=== PATIENT | male | born 1960 | race Caucasian/White ===

== ENCOUNTER 2023-09-16 10:52 | Emergency (ER) | payer MEDICARE, SELFPAY ==
[2023-09-16 10:53] VITALS: BP 141/111; PULSE 114; RESP 18; TEMP 36.9; O2SAT 98; BMI 26.4
[2023-09-16 11:20] VITALS: BP 136/92; PULSE 108; O2SAT 95
[2023-09-16 11:30] VITALS: BP 151/95; PULSE 109; O2SAT 95
--- NOTE | 2023-09-16 11:37 | HMH.EDGENADL ---
Discharge Plan Disposition Patient Disposition: Home, Self-Care Prescriptions Prescriptions: New levofloxacin 750 mg tablet 750 mg PO DAILY 5 Days Qty: 5 0RF clotrimazole 10 mg karen 10 mg mucous membrane 5XDAY 14 Days Qty: 70 0RF Referrals Follow up/Referrals: Rowena Bourne [Primary Care Provider] - See instructions Activity Restrictions/Add. Instructions Additional Instructions/Restrictions: WillAt this time is felt you are safe to be discharged home. If new or worsening symptoms please not hesitate to return the emergency department. Please take your medications as prescribed and follow-up with your family doctor within the next few days for continued evaluation of your thrush (candidiasis), pneumonia, tongue ulcer, and elevated liver markers. Clinical Impressions Clinical Impression: Pneumonia, Candidiasis of mouth, Tongue ulcer, Transaminitis Discharge ED Provider: Guzman Strickland General Adult HPI General Chief complaint: Dental/Oral Stated complaint: post seizure breakout in mouth, can't eat/drink Time Seen by Provider: 09/16/23 11:25 Mode of Arrival: Wheelchair Source of Information: Patient and Spouse Limitations: No Limitations Description of Symptoms (Recalled from ER Triage Doc. by RN): Patient states that he has had blisters and a swollen tongue for approx 2 weeks since he had his last seizure. Per the patient has not had his seizure medication for approx 1 week due to the blisters in his mouth. History of Present Illness HPI narrative: Patient is a 62-year-old male with past medical history of seizure disorder on Dilantin, Keppra, diazepam who presents emergency department for evaluation of sores in his mouth. Approximately 2 weeks ago patient had generalized tonic-clonic seizure (has baseline is intermittent however he has had seizures as frequently as every 2 weeks). Seizure phenotype is consistent with baseline, he bit his tongue in the process and presented to where ultimately patient left prior to completion of workup. Since then patient has had a sore on the left side of his tongue, progressive pain and a white discoloration of his tongue causing him to present here for continued evaluation due to pain associated with p.o. intake. Patient does have a slight associated cough. No chest pain, abdominal pain, other acute complaints at this time. Related Data Previous Rx's Medication Instructions Recorded clotrimazole 10 mg karen 10 mg mucous membrane 5XDAY 14 09/16/23 days #70 tabs levofloxacin 750 mg tablet 750 mg PO DAILY 5 days #5 tabs 09/16/23 Allergies Allergy/AdvReac Type Severity Reaction Status Date / Time phenobarbital Allergy Verified 09/16/23 11:06 [facility] Disclaimer: The information contained in this section may have been updated after the patient was seen, as this information can be updated by other users. Social History Smoking Status: Former smoker alcohol intake: never current occupational status: other Travel in the last 8 weeks: None ROS Obtained: Yes Systems reviewed as appropriate & no additional complaints except as documented Physical Exam General General appearance: alert and in no apparent distress Head Head exam: atraumatic and normocephalic Eye Eye exam: Present PERRL and EOMI ENT ENT exam: Present mucous membranes moist and other (Scrapable white plaque adherent to the dorsal aspect of the tongue, ulcerative lesion left lateral tongue that is hemostatic. No gingival or buccal mucosal involvement no posterior oropharynx involvement) Neck Neck exam: Present normal inspection Chest Chest inspection: Present normal inspection and symmetric chest wall rise Respiratory Respiratory exam: Present normal lung sounds bilaterally; Absent respiratory distress Cardiovascular Cardiovascular exam: Present regular rate and normal rhythm Abdominal Exam Abdominal exam: Present soft; Absent tenderness Extremities Exam Extremitie
--- NOTE | 2023-09-16 11:39 | XR_ITS ---
PROCEDURE INFORMATION: Exam: XR Chest Exam date and time: 09/16/2023 11:48 AM Age: 62 years old Clinical indication: Cough TECHNIQUE: Imaging protocol: Radiologic exam of the chest. Views: 1 view. Total images: 1 COMPARISON: No relevant prior studies available. FINDINGS: Lungs: Atelectatic and/or early infiltrative changes noted within the left lower lobe. Bilateral hyperinflation is present. Pleural spaces: Unremarkable. No pleural effusion. No pneumothorax. Heart/Mediastinum: Unremarkable. No cardiomegaly. Vasculature: Mild atherosclerotic disease. Bones/joints: The thoracic spine demonstrates mild degenerative changes at multiple levels. IMPRESSION: 1. Atelectatic and/or early infiltrative changes noted within the left lower lobe. 2. Bilateral hyperinflation is present.
[2023-09-16 12:01] LABS: Basophils # 0.1 K/mm3 (0-0.2); Basophils % 1.1 % (0.1-2.0); Eosinophils # 0.1 K/mm3 (0.0-0.4); Eosinophils % 0.7 % (0.1-12.0); Hematocrit 43.7 % (42.0-52.0); Hemoglobin 15.2 g/dL (14.1-18.0); Lymphocytes # 5.7 K/mm3 (0.7-4.5); Lymphocytes % 68.8 % (10-50); Mean Corpuscular HGB Conc 34.7 g/dL (31.8-35.4); Mean Corpuscular Hemoglobin 31.7 pg (27.0-31.2); Mean Corpuscular Volume 91.2 fl (80-94); Mean Platelet Volume 8.5 fl (7.4-10.4); Monocytes # 0.8 K/mm3 (0.1-1.0); Neutrophils # 1.6 K/mm3 (1.8-7.8); Neutrophils % 19.5 % (37.0-80.0); Platelet Count 308 K/mm3 (142-424); Red Blood Count 4.79 M/mm3 (4.60-6.20); Red Cell Distribution Width 15.6 % (11.5-17.5); White Blood Count 8.3 K/mm3 (4.8-10.8)
[2023-09-16 12:04] LABS: MANUAL DIFFERENTIAL MANUAL DIFFERENTIAL (MANUAL DIFF)
[2023-09-16 12:05] LABS: Chloride 102 mmol/L (98-107); Potassium 4.7 mmoL/L (3.5-5.1); Sodium 138 mmol/L (136-145)
[2023-09-16 12:08] LABS: Alanine Aminotransferase 136 U/L (12-78); Albumin Level 4.2 g/dl (3.5-5.0); Albumin/Globulin Ratio 0.9 (1.1-1.8); Alkaline Phosphatase 159 U/L (38-126); Anion Gap 12.7 mEq/L (5-15); Aspartate Amino Transferase 142 U/L (17-59); Blood Urea Nitrogen 17 mg/dl (9-20); Carbon Dioxide 28 mmol/L (22.0-30.0); Creatinine Clearance Estimated 98 mL/min (50-200); Estimated Glomerular Filt Rate 137 ml/min (>60); GFR (African American) 165 ML/MIN (>60); Globulin 4.6 g/dL (1.3-3.2); Total Protein,Serum 8.8 g/dl (6.3-8.2)
[2023-09-16 12:09] LABS: Calcium 8.7 mg/dl (8.4-10.2); Glucose 104 mg/dl (74-100)
[2023-09-16 12:39] LABS: Lymphocytes % 69 % (10-50); Monocytes % 10 % (2-9); Neutrophils % 21 % (42-76); Platelet Estimate Normal; RBC Morphology Normal; Total Cells Counted 100
[2023-09-16 13:10] VITALS: BP 151/95; PULSE 93; RESP 18; TEMP 36.7; O2SAT 95
== END 2023-09-16 13:11 | disposition home or self-care (01) ==
PROVIDERS: Emergency Provider Emergency Medicine; PCP Family Medicine
DX: J18.9 Pneumonia, unspecified organism (principal); R00.0 Tachycardia, unspecified; B37.0 Candidal stomatitis; K14.0 Glossitis; R74.01 Elevation of levels of liver transaminase levels; R05.9 Cough, unspecified; G40.909 Epilepsy, unspecified, not intractable, without status epilepticus; Z87.891 Personal history of nicotine dependence
CPT/HCPCS: 71045; 80053; 85007; 85025

== ENCOUNTER 2023-09-16 22:45 | Inpatient (IN) | payer MEDICARE, MEDICAID, SELFPAY ==
[2023-09-16 22:45] VITALS: RESP 18; TEMP 36.4; O2SAT 93; BMI 25.0
[2023-09-16 22:57] VITALS: BP 113/82; PULSE 70
--- NOTE | 2023-09-16 23:01 | PC.NURSE ---
Seizure pads have been placed for patient safety
--- NOTE | 2023-09-16 23:16 | HMH.EDGENADL ---
Discharge Plan Disposition Patient Disposition: Admitted Chief Complaint: Seizure Prescriptions Prescriptions: No Action levofloxacin 750 mg tablet 750 mg PO DAILY 5 Days Qty: 5 0RF clotrimazole 10 mg karen 10 mg mucous membrane 5XDAY 14 Days Qty: 70 0RF clotrimazole 10 mg Karen 10 mg MUCOUS MEMBRANE TID levetiracetam 500 mg tablet 500 mg PO AM Patient Comments: TAKE 1 TABLET BY MOUTH IN THE MORNING AND 2 TABLETS IN THE EVENING diazepam 10 mg tablet 10 mg PO BID PRN (Reason: Seizures) Patient Comments: TAKE 1 TABLET BY MOUTH TWICE DAILY NEEDED FOR ACUTE SEIZURES levetiracetam 500 mg tablet 1,000 mg PO PM phenytoin sodium extended 100 mg capsule 300 mg PO PM Patient Comments: TAKE 2 CAPSULES BY MOUTH IN THE MORNING AND 3 CAPSULES IN THE EVENING phenytoin sodium extended 100 mg capsule 200 mg PO AM Patient Comments: TAKE 2 CAPSULES BY MOUTH IN THE MORNING AND 3 CAPSULES IN THE EVENING Clinical Impressions Clinical Impression: Jo Ann esophagitis, Breakthrough seizure, Left thyroid nodule, Acute upper gastrointestinal bleeding, Elevated liver enzymes Neutropenia Qualifiers: Neutropenia type: unspecified Qualified Code(s): D70.9 - Neutropenia, unspecified Discharge ED Provider: Patricio Egan General Adult HPI General Chief complaint: Seizure Stated complaint: seizure Time Seen by Provider: 09/16/23 23:00 Mode of Arrival: EMS Source of Information: Patient Limitations: No Limitations Description of Symptoms (Recalled from ER Triage Doc. by RN): Per EMS: patient was seizing at home unknown on how long seizure lasted. Arrival to ER patient remains posticial. Able to answer some questions appropriatly but unsure of todays date, or current location. From prior visit earlier this date patient has not been taking prescribed medications due to thrush. History of Present Illness HPI narrative: 62-year-old male, history of idiopathic generalized seizure disorder since childhood, prescribed Keppra, phenytoin, diazepam for seizure disorder by PCP presents with breakthrough seizure. Patient's last seizure was approximately 2 weeks ago, he briefly had Ramu's paralysis at that time. His seizures are usually fairly well controlled. Patient has had worsening mouth and throat pain for the last 2 weeks or so. Patient has not been able to take his Keppra or phenytoin for approximately last 2 weeks due to throat pain, he has also been having difficulty tolerating food. He has been able to take the diazepam because they are smaller. The patient had a generalized tonic-clonic seizure in bed shortly prior to arrival and was postictal immediately afterwards. He sustained no trauma during the seizure. It was characteristic of patient's normal seizure pattern per family at bedside. Patient has had no fever at home, but has had a productive cough recently. He was seen here in the ER earlier today and had blood work. He was noted to be mildly neutropenic and have elevated LFTs. During that visit earlier today, he was diagnosed with oropharyngeal candidiasis and pneumonia and was prescribed clotrimazole and levofloxacin. During current ED stay, patient had very large volume dark brown emesis that was Hemoccult positive. No history of GI bleeding in the past. Related Data Home Medications Medication Instructions Recorded Confirmed clotrimazole 10 mg karen 10 mg mucous membrane TID 09/16/23 09/16/23 diazepam 10 mg tablet 10 mg PO BID PRN Seizures 09/16/23 09/16/23 levetiracetam 500 mg tablet 1,000 mg PO PM 09/16/23 09/16/23 levetiracetam 500 mg tablet 500 mg PO AM 09/16/23 09/16/23 phenytoin sodium extended 100 mg 200 mg PO AM 09/16/23 09/16/23 capsule phenytoin sodium extended 100 mg 300 mg PO PM 09/16/23 09/16/23 capsule Previous Rx's Medication Instructions Recorded clotrimazole 10 mg karen 10 mg mucous membrane 5XDAY 14 09/16/23 days #70 tab
[2023-09-17] VITALS (17 sets, daily range): BP systolic 103–148; BP diastolic 53–86; PULSE 80–112; RESP 14–20; TEMP 36.6–37.5; O2SAT 91–96; BMI 25.9
--- NOTE | 2023-09-17 00:05 | PC.NURSE ---
Keppra infusion complete. Patient tolerated well with no adverse reactions. Patient is more alert and able to answer questions appropriately.
--- NOTE | 2023-09-17 00:18 | CT_ITS ---
PROCEDURE INFORMATION: Exam: CTA Abdomen and Pelvis With Contrast Exam date and time: 09/17/2023 12:59 AM Age: 62 years old Clinical indication: Abdominal pain; Acute; Additional info: Gi bleed TECHNIQUE: Imaging protocol: Computed tomographic angiography of the abdomen and pelvis with contrast. Exam focused on the arteries. 3D rendering (Not supervised by radiologist): MIP and/or 3D reconstructed images were created by the technologist. Radiation optimization: All CT scans at this facility use at least one of these dose optimization techniques: automated exposure control; mA and/or kV adjustment per patient size (includes targeted exams where dose is matched to clinical indication); or iterative reconstruction. Contrast material: ISOVUE; Contrast volume: 100 ml; Contrast route: INTRAVENOUS (IV); REPORTING DATA: Count of CT and Cardiac NM exams in prior 12 months: This patient has received 0 known CTs and 0 known cardiac nuclear medicine studies in the 12 months prior to the current study. COMPARISON: CT ANGIO CHEST 09/17/2023 12:59 AM FINDINGS: Diaphragm: A small hiatal hernia is present. Aorta: No aortic aneurysm. No aortic dissection. Celiac trunk and mesenteric arteries: No occlusion or significant stenosis. Renal arteries: No occlusion or significant stenosis. Right iliac arteries: No occlusion or significant stenosis. Left iliac arteries: No occlusion or significant stenosis. Liver: No mass. Gallbladder and bile ducts: Unremarkable. No calcified stones. No ductal dilation. Pancreas: Unremarkable. No mass. No ductal dilation. Spleen: Unremarkable. No splenomegaly. Adrenal glands: 16 mm right adrenal myelolipoma. There is an associated coarse calcification within the adrenal gland. Normal left adrenal gland. Kidneys and ureters: Unremarkable. No solid mass. No hydronephrosis. Stomach and bowel: Unremarkable. No obstruction. No mucosal thickening. Appendix: No evidence of appendicitis. Intraperitoneal space: There is a diffuse inflammatory stranding throughout the central mesentery. There are no enlarged mesenteric lymph nodes. These findings are nonspecific. This marcelo mesentery can be an early manifestation of mesenteric neoplasm, however, and a follow up examination is recommended as clinically warranted. Lymph nodes: Several enlarged upper abdominal lymph nodes are noted. The largest in the portacaval region measuring 1.3 x 2.4 cm on image 347 series 2. Urinary bladder: Unremarkable. No mass. Reproductive: Unremarkable as visualized. Bones/joints: No acute fracture. Soft tissues: Unremarkable. IMPRESSION: 1. Unremarkable abdominal and pelvic CTA. 2. Mildly prominent upper abdominal lymph nodes of uncertain significance. Follow-up is recommended. 3. Diffuse inflammatory stranding throughout the central mesentery. This marcelo mesentery can be an early manifestation of mesenteric neoplasm, however, and a follow up examination is recommended as clinically warranted. 4. Right adrenal myelolipoma.
--- NOTE | 2023-09-17 00:23 | CT_ITS ---
PROCEDURE INFORMATION: Exam: CTA Chest With Contrast Exam date and time: 09/17/2023 12:59 AM Age: 62 years old Clinical indication: Other: Hematemesis TECHNIQUE: Imaging protocol: Computed tomographic angiography of the chest with contrast. Exam focused on the arteries. 3D rendering (Not supervised by radiologist): MIP and/or 3D reconstructed images were created by the technologist. Radiation optimization: All CT scans at this facility use at least one of these dose optimization techniques: automated exposure control; mA and/or kV adjustment per patient size (includes targeted exams where dose is matched to clinical indication); or iterative reconstruction. Contrast material: ISOVUE; Contrast volume: 100 ml; Contrast route: INTRAVENOUS (IV); REPORTING DATA: Count of CT and Cardiac NM exams in prior 12 months: This patient has received 0 known CTs and 0 known cardiac nuclear medicine studies in the 12 months prior to the current study. COMPARISON: CR XR CHEST PORTABLE 09/16/2023 11:48 AM FINDINGS: Pulmonary arteries: Normal. No pulmonary emboli. Aorta: Unremarkable. No aortic aneurysm. No aortic dissection. Thyroid: Large heterogeneous left thyroid lobe nodule measuring 3.5 x 3.1 x 5.2 cm. Lungs: 14 mm focus of airspace disease right lower lobe image 64 series 5. Bandlike densities within the lingula and anterior segment right upper lobe either representing atelectasis or scarring. Several small calcified granulomas are noted at the posterior left lung base. Pleural spaces: Unremarkable. No pneumothorax. No pleural effusion. Heart: Unremarkable. No cardiomegaly. No pericardial effusion. Mediastinal space: Fluid-filled thoracic esophagus with diffuse mild circumferential wall thickening of the esophageal. The findings likely represent sequela of reflux disease or dysmotility along with esophagitis. Lymph nodes: There are few small less than 10 mm right pericardial lymph nodes. Diaphragm: A small hiatal hernia is present. Bones/joints: Unremarkable. No acute fracture. Soft tissues: Unremarkable. IMPRESSION: 1. No pulmonary embolus. No acute aortic findings. 2. Dilated fluid-filled thoracic esophagus with circumferential wall thickening. The findings likely represent sequela of reflux disease or dysmotility along with esophagitis. 3. Large heterogeneous left thyroid lobe nodule measuring up to 5.2 cm. Further evaluation with thyroid ultrasound is recommended. 4. Left upper lobe atelectasis versus scarring. 5. Other nonurgent findings as detailed. COMMENTS: Consistent with the [employer]'s Incidental Findings Committee white paper (J Am Mariaelena Radiol 2015): In patients aged 35 years and older with an incidental thyroid nodule equal to or greater than 1.[address], MRI or extrathyroidal US, further evaluation with dedicated thyroid US is recommended for patients with normal life expectancy and without comorbidities. For smaller nodules without suspicious features, no further evaluation or follow up is recommended.
--- NOTE | 2023-09-17 00:24 | PC.NURSE ---
Patient started vomiting dark brown/black emesis. Large amount. Patient states he just started feeling nauseas and started vomiting. Patient denies having any of these symptoms at home. Dr. Egan was at bedside. New orders received for scans. Patient has been cleaned up and repositioned in bed.
[2023-09-17 00:34] LABS: Basophils # 0.1 K/mm3 (0-0.2); Chloride 101 mmol/L (98-107); Eosinophils # 0.1 K/mm3 (0.0-0.4); Eosinophils % 0.8 % (0.1-12.0); Hemoglobin 14.4 g/dL (14.1-18.0); Lymphocytes # 6.8 K/mm3 (0.7-4.5); Lymphocytes % 70.5 % (10-50); Mean Corpuscular HGB Conc 36.1 g/dL (31.8-35.4); Mean Corpuscular Hemoglobin 32.1 pg (27.0-31.2); Mean Corpuscular Volume 89.1 fl (80-94); Mean Platelet Volume 9.1 fl (7.4-10.4); Monocytes # 0.8 K/mm3 (0.1-1.0); Monocytes % 8.5 % (1.7-9.3); Neutrophils # 1.8 K/mm3 (1.8-7.8); Neutrophils % 19.1 % (37.0-80.0); Platelet Count 325 K/mm3 (142-424); Potassium 3.6 mmoL/L (3.5-5.1); Red Blood Count 4.49 M/mm3 (4.60-6.20); Red Cell Distribution Width 15.8 % (11.5-17.5); Sodium 138 mmol/L (136-145); White Blood Count 9.6 K/mm3 (4.8-10.8)
[2023-09-17 00:36] LABS: Blood Urea Nitrogen 18 mg/dl (9-20); Creatinine Clearance Estimated 93 mL/min (50-200); Estimated Glomerular Filt Rate 137 ml/min (>60); GFR (African American) 165 ML/MIN (>60)
[2023-09-17 00:37] LABS: Alanine Aminotransferase 138 U/L (12-78); Albumin Level 3.9 g/dl (3.5-5.0); Albumin/Globulin Ratio 0.9 (1.1-1.8); Alkaline Phosphatase 162 U/L (38-126); Anion Gap 12.6 mEq/L (5-15); Aspartate Amino Transferase 116 U/L (17-59); Bilirubin,Total 0.6 mg/dl (0.2-1.3); Calcium 8.9 mg/dl (8.4-10.2); Carbon Dioxide 28 mmol/L (22.0-30.0); Globulin 4.2 g/dL (1.3-3.2); Glucose 172 mg/dl (74-100); Magnesium 2.2 mg/dl (1.6-2.3); Total Protein,Serum 8.1 g/dl (6.3-8.2)
[2023-09-17 00:38] LABS: MANUAL DIFFERENTIAL MANUAL DIFFERENTIAL (MANUAL DIFF)
[2023-09-17 00:39] LABS: Activated Partial Thrombo Time 27.1 seconds (22.8-30.6)
[2023-09-17 00:42] LABS: Lipase 127 U/L (23-300)
[2023-09-17 00:46] LABS: INR 1.11 (0.9-1.1); Prothrombin Time 11.9 seconds (10.1-12.5)
[2023-09-17 00:52] LABS: VBG Base Excess 0.3 mmol/L (-2.4-2.3); VBG HCO3 25.2 mmol/L (23-30); VBG Oxygen Saturation 94.9 % (50-70); VBG PCO2 41.9 mmol/L (35-51); VBG PO2 77.9 mmol/L (28-40); VBG Total CO2 26.5 mmol/L (23-27)
[2023-09-17 01:02] LABS: Eosinophils % 4 % (0-3); Lymphocytes % 70 % (10-50); Monocytes % 9 % (2-9); Neutrophils % 17 % (42-76); Platelet Estimate Normal; RBC Morphology Normal; Total Cells Counted 100
[2023-09-17 01:05] LABS: Lactic Acid 1.4 mmol/L (0.7-2.1)
[2023-09-17 01:13] LABS: Occult Blood,Gastric Fluid Positive (Negative)
--- NOTE | 2023-09-17 01:31 | XR_ITS ---
PROCEDURE INFORMATION: Exam: XR Chest Exam date and time: 09/17/2023 1:38 AM Age: 62 years old Clinical indication: Device placement; Ng tube; Additional info: Ng placement TECHNIQUE: Imaging protocol: Radiologic exam of the chest. Views: 1 view. COMPARISON: CT ANGIO CHEST 09/17/2023 12:59 AM FINDINGS: Tubes, catheters and devices: The nasogastric tube is doubled back on itself and does not go beyond the GE junction. The tip projects at the level of the aortic arch. Lungs: Scarring versus atelectasis within the left mid lung zone. Pleural spaces: Unremarkable. No pleural effusion. No pneumothorax. Heart/Mediastinum: Unremarkable. No cardiomegaly. Vasculature: Unremarkable. Bones/joints: Unremarkable. IMPRESSION: Nasogastric tube doubles back on itself with the tip projecting at the level of the aortic arch. This should be repositioned.
--- NOTE | 2023-09-17 02:04 | XR_ITS ---
FINAL REPORT CLINICAL HISTORY: replace ng tube placement COMPARISON: None FINDINGS: Apices were not included on this chest x-ray. NG tube is present with the tip in the gastric antrum. The heart size is normal. The mediastinum is normal. There is scarring in the left perihilar region. The lungs are underinflated. There are no pleural effusions. There is no pneumothorax. There is no osseous abnormality. IMPRESSION: NG tube present with tip in the gastric antrum. Scarring in the left perihilar region. Reviewed, Interpreted and Dictated by Mo Mendez MD Transcribed by Zee Mckeon Authenticated and [facility]
--- NOTE | 2023-09-17 02:07 | PC.NURSE ---
LUIGI Anne placed NG to left nare. Waiting on confirmation from XRAY.
--- NOTE | 2023-09-17 02:38 | PC.NURSE ---
Spoke with Scotty [facility], they will return call as soon as they receive images that are being power shared
[2023-09-17 02:42] LABS: T4 (Thyroxine) 8.2 ug/dl (5.53-11.0)
--- NOTE | 2023-09-17 02:59 | PC.NURSE ---
on phone with Fran
--- NOTE | 2023-09-17 03:08 | PC.NURSE ---
pt placed on waiting list @ [facility]
--- NOTE | 2023-09-17 03:12 | PC.NURSE ---
Spoke to [facility] there is a wait list, ED doctor chose not to add pt. to wait list at this facility
--- NOTE | 2023-09-17 03:15 | PC.NURSE ---
xray conformation of correct placement obtained. Patient has had 650ml of dark brown gastric contents removed via NG tube. Patient states I feel better already.
--- NOTE | 2023-09-17 03:16 | PC.NURSE ---
Spoke to [facility] transfer center, No beds available at this time
--- NOTE | 2023-09-17 03:19 | PC.NURSE ---
on phone with hospitalist
--- NOTE | 2023-09-17 03:21 | PC.NURSE ---
notified housecleaner floor of admission
--- NOTE | 2023-09-17 03:23 | PC.NURSE ---
OBSERVATION ADMISSION TO 204 WITH DX OF GI BLEED, AND BREAK THROUGH SEIZURES TO SERVICE OF THE HOSPITALIST.
--- NOTE | 2023-09-17 03:37 | PC.NURSE ---
report called to zackery Stahl
--- NOTE | 2023-09-17 03:58 | PC.NURSE ---
pt arrived to floor via stretcher @03:56
--- NOTE | 2023-09-17 04:29 | PC.NURSE ---
Pt arrived to floor with and family at bedside. Pt states pt has had a seizure disorder since he was 2 years old. manages pt medication and states he takes seizure medication regularly. states she found pt seizing in bed tonight. She did not know how long he had been seizing so she called EMS.
[2023-09-17 05:29] LABS: POC Glucose,Bedside 98 (70-110)
--- NOTE | 2023-09-17 07:15 | HMH.PHAINT1 ---
Pharmacy Intervention Comments: Med reconciliation completed using external fill history
--- NOTE | 2023-09-17 07:15 | EXP.HP ---
History of Present Illness *Admission Date: 09/17/23 *Reason for visit:: seizure, sore mouth *History of present illness: Mr. Curiel is a 62-year-old male with history of seizure disorder and recent diagnosis of thrush by his PCP. He presented to the ER because of sores in his mouth and poor p.o. intake. 2 weeks ago he had a generalized tonic-clonic seizure and was seen at . He left before workup was complete. Had sores in his mouth and has had progressive pain since. Noted to develop white discoloration on his tongue causing him to present for difficulty swallowing medications. Has not taken his meds in almost a week. Workup in the ER found oral Jo Ann. Imaging of chest and abdomen showed significant esophagitis, concerning for candidal esophagitis. Also noted to have upper abdominal lymphadenopathy, mesenteric stranding, and thyroid nodule. Discussed case with medicine for admission, medicine initially requested transfer given complexities of patient's condition with concern for possible neoplastic process and immune compensation with thrush. Patient also noted to have concern for GI bleed with hematemesis On presentation. NG was placed because of his vomiting. Output was black in character. Attempts were made to transfer, patient is on wait list for . Medicine was contacted again for admission. Patient admitted for further management. On evaluation, patient states he is feeling better after placement of NG and requesting to come out. No longer having nausea. States he has not had a bowel movement 2 days. Surgery consulted after admission. Stable on room air. Denies any shortness of breath, confusion, chest pain, diarrhea. No fevers or chills. No [facility] Disclaimer: The information contained in this section may have been updated after the patient was seen, as this information can be updated by other users. Medical History (Updated 09/17/23 @ 18:28 by Warren Bright MD) Seizure disorder Surgical History History of surgery of head History of surgery on lower extremity Social History Smoking Status: Former smoker tobacco type: cigarettes packs per day: 1 alcohol intake: never substance use type: denies use current occupational status: other Travel in the last 8 weeks: None Review of Systems Review of Systems Review of systems (narrative): 14 point review of systems performed, pertinent positives and negatives as per HPI Meds Home Medications and Allergies Home Medications Medication Instructions Recorded Confirmed Type clotrimazole 10 mg karen 10 mg mucous membrane 5XDAY 09/16/23 09/17/23 History diazepam 10 mg tablet 10 mg PO BID PRN Seizures 09/16/23 09/17/23 History levetiracetam 500 mg tablet 1,000 mg PO HS 09/16/23 09/17/23 History levetiracetam 500 mg tablet 500 mg PO DAILY 09/16/23 09/17/23 History levofloxacin 750 mg tablet 750 mg PO DAILY 5 days #5 tabs 09/16/23 09/17/23 Rx phenytoin sodium extended 100 mg 200 mg PO DAILY 09/16/23 09/17/23 History capsule phenytoin sodium extended 100 mg 300 mg PO HS 09/16/23 09/17/23 History capsule New Prescriptions to Start Prescriptions: Allergies Allergy/AdvReac Type Severity Reaction Status Date / Time phenobarbital Allergy Verified 09/16/23 11:06 Exam Data for Last 24 hours Vital signs and Labs for Last 24 Hours: Temp Pulse Resp BP Pulse Ox O2 Del Method 98.6 F 82 20 127/86 92 L Room Air 09/17/23 04:00 09/17/23 04:00 09/17/23 04:00 09/17/23 04:00 09/17/23 04:00 09/17/23 05:00 Laboratory Results - last 24 hr 09/16/23 22:50: TSH 1.80, Thyroxine (T4) 8.2 09/17/23 00:00: WBC 9.6, RBC 4.49 L, Hgb 14.4, Hct 40.0 L, MCV 89.1, MCH 32.1 H, MCHC 36.1 H, RDW 15.8, Plt Count 325, MPV 9.1, Neut % (Auto) 19.1 L, Lymph % (Auto) 70.5 H, Butler % (Auto) 8.5, Eos % (Auto) 0.8, Baso % (Auto) 1.0, Neut #
[2023-09-17 07:35] LABS: Basophils # 0.1 K/mm3 (0-0.2); Basophils % 0.8 % (0.1-2.0); Eosinophils % 0.3 % (0.1-12.0); Lymphocytes # 4.6 K/mm3 (0.7-4.5); Lymphocytes % 55.3 % (10-50); Mean Corpuscular HGB Conc 36.3 g/dL (31.8-35.4); Mean Corpuscular Hemoglobin 32.6 pg (27.0-31.2); Mean Corpuscular Volume 89.9 fl (80-94); Mean Platelet Volume 8.5 fl (7.4-10.4); Monocytes # 0.9 K/mm3 (0.1-1.0); Monocytes % 10.3 % (1.7-9.3); Neutrophils # 2.8 K/mm3 (1.8-7.8); Neutrophils % 33.4 % (37.0-80.0); Platelet Count 283 K/mm3 (142-424); Red Cell Distribution Width 16.1 % (11.5-17.5); White Blood Count 8.4 K/mm3 (4.8-10.8)
[2023-09-17 07:54] LABS: Alanine Aminotransferase 112 U/L (12-78); Albumin Level 3.2 g/dl (3.5-5.0); Albumin/Globulin Ratio 0.8 (1.1-1.8); Alkaline Phosphatase 127 U/L (38-126); Anion Gap 9.7 mEq/L (5-15); Aspartate Amino Transferase 98 U/L (17-59); Bilirubin,Total 0.5 mg/dl (0.2-1.3); Blood Urea Nitrogen 14 mg/dl (9-20); Calcium 8.2 mg/dl (8.4-10.2); Carbon Dioxide 24 mmol/L (22.0-30.0); Chloride 105 mmol/L (98-107); Creatinine Clearance Estimated 96 mL/min (50-200); Estimated Glomerular Filt Rate 168 ml/min (>60); GFR (African American) 204 ML/MIN (>60); Glucose 97 mg/dl (74-100); Lactate Dehydrogenase 249 U/L (313-618); Magnesium 2.2 mg/dl (1.6-2.3); Potassium 3.7 mmoL/L (3.5-5.1); Sodium 135 mmol/L (136-145); Total Protein,Serum 7.2 g/dl (6.3-8.2); Uric Acid 3.9 mg/dl (3.5-8.5)
--- NOTE | 2023-09-17 08:52 | EXP.SURG.CON ---
History of Present Illness *Admission Date: 09/17/23 *Reason for visit:: Possible GI bleed and esophagitis *History of present illness: Patient is a 62-year-old male. He has a history of seizure disorder. Apparently he has a recent admission to [facility] where he had reportedly left prior to completion of his workup for seizure issues. He is on Dilantin, Keppra, diazepam. He presented to the emergency department at this facility with a 2-week history of progressive mouth and throat pain. He had been unable to tolerate his oral anticonvulsants and has been having difficulty with food intake. Reportedly the patient had a symptoms consistent with a generalized tonic-clonic seizure prior to arrival to the emergency department. Evaluation in the emergency department revealed some mild neutropenia and elevated transaminases. During his emergency department stay he had a large volume of dark brown emesis which tested positive for Hemoccult. Patient was postictal initially. Emergency room evaluation imaging revealed large thyroid nodule, diffusely thickened and fluid-filled esophagus consistent with esophagitis, markedly fluid-filled stomach, mildly prominent upper abdominal lymph nodes, central mesenteric stranding ( marcelo mesentery ) of undetermined significance which was potentially suggestive of early mesenteric malignancy. Patient had nasogastric tube placed with aspiration of brown liquid. Due to patient's likely need for neurology, potential gastroenterology, hematology/oncology it was felt that he required higher level of care and arrangements were made for transfer to [facility] where he was accepted. However, patient was placed on the wait list and admitted to this facility pending bed availability [facility] Disclaimer: The information contained in this section may have been updated after the patient was seen, as this information can be updated by other users. Medical History (Updated 09/17/23 @ 04:15 by Janice Saldivar RN) Seizure disorder Surgical History History of surgery of head History of surgery on lower extremity Social History (Updated 09/17/23 @ 04:13 by Janice Saldivar RN) Smoking Status: Former smoker tobacco type: cigarettes packs per day: 1 alcohol intake: never current occupational status: other Travel in the last 8 weeks: None Review of Systems Review of Systems Review of systems:: pertinent systems reviewed and negative unless documented below *Gastrointestinal Gastrointestinal: Reports coffee ground emesis, Denies hematemesis, Denies hematochezia and Denies melena *Neurologic Neurologic: Reports convulsions Meds Home Medications and Allergies Home Medications Medication Instructions Recorded Confirmed Type clotrimazole 10 mg karen 10 mg mucous membrane 5XDAY 09/16/23 09/17/23 History diazepam 10 mg tablet 10 mg PO BID PRN Seizures 09/16/23 09/17/23 History levetiracetam 500 mg tablet 1,000 mg PO HS 09/16/23 09/17/23 History levetiracetam 500 mg tablet 500 mg PO DAILY 09/16/23 09/17/23 History levofloxacin 750 mg tablet 750 mg PO DAILY 5 days #5 tabs 09/16/23 09/17/23 Rx phenytoin sodium extended 100 mg 200 mg PO DAILY 09/16/23 09/17/23 History capsule phenytoin sodium extended 100 mg 300 mg PO HS 09/16/23 09/17/23 History capsule New Prescriptions to Start Prescriptions: Allergies Allergy/AdvReac Type Severity Reaction Status Date / Time phenobarbital Allergy Verified 09/16/23 11:06 Exam (Inpt) Vital signs and Labs for Last 24 Hours: Temp Pulse Resp BP Pulse Ox O2 Del Method 98.1 F 88 16 126/76 94 L Room Air 09/17/23 08:00 09/17/23 08:00 09/17/23 08:00 09/17/23 08:00 09/17/23 08:00 09/17/23 08:00 Laboratory Results - last 24 hr 09/16/23 22:50: TSH 1.80, Thyroxine (T4) 8.2 09/17/23 00:00: WBC 9.6, RBC
[2023-09-17 09:52] LABS: Hemoglobin A1C 4.8 % (4.0-6.0)
--- NOTE | 2023-09-17 11:54 | HMH.SCOPE ---
Procedure: Date: 09/17/23 Patient Date of :: 1960 Procedure Performed:: Esophagogastroduodenoscopy with biopsies Indications:: Patient is a 62-year-old male. He has a history of seizure disorder. Apparently he has a recent admission to [facility] where he had reportedly left prior to completion of his workup for seizure issues. He is on Dilantin, Keppra, diazepam. He presented to the emergency department at this facility with a 2-week history of progressive mouth and throat pain. He had been unable to tolerate his oral anticonvulsants and has been having difficulty with food intake. Reportedly the patient had a symptoms consistent with a generalized tonic-clonic seizure prior to arrival to the emergency department. Evaluation in the emergency department revealed some mild neutropenia and elevated transaminases. During his emergency department stay he had a large volume of dark brown emesis which tested positive for Hemoccult. Patient was postictal initially. Emergency room evaluation imaging revealed large thyroid nodule, diffusely thickened and fluid-filled esophagus consistent with esophagitis, markedly fluid-filled stomach, mildly prominent upper abdominal lymph nodes, central mesenteric stranding ( marcelo mesentery ) of undetermined significance which was potentially suggestive of early mesenteric malignancy. Patient had nasogastric tube placed with aspiration of brown liquid. Due to patient's likely need for neurology, potential gastroenterology, hematology/oncology it was felt that he required higher level of care and arrangements were made for transfer to [facility] where he was accepted. However, patient was placed on the wait list and admitted to this facility pending bed availability [facility]. Plan was made to proceed with upper endoscopy to evaluate for possible upper GI bleeding for diagnosis and potentially therapeutic purposes as well as to evaluate for potential Jo Ann esophagitis. Performing Provider:: Leroy Zavala MD Referring Provider:: Franky Bright MD Sedation:: MAC sedation Procedure:: Patient history was obtained and appropriate physical examination was performed. Patient's medications and allergies were reviewed. Informed consent was obtained after explaining the benefits, alternatives, and risks of the procedure including, but not limited to, bleeding, perforation, missed lesions, and adverse reaction to anesthesia medications. Patient was transported to endoscopy procedure room. Patient was connected to monitoring devices. Throughout the procedure the patient's blood pressure, pulse, and oxygen saturations were monitored continuously. Patient identification and planned procedure were verified by the staff. Patient was positioned in lateral decubitus position. Olympus endoscope was inserted via the oropharynx. Esophagus was cannulated. Nasogastric tube was followed down the esophagus. He had moderate distal erosive esophagitis characterized by several shallow linear exudative erosions. Gastroesophageal junction was encountered at approximately 40 cm. There was significant focal erosive esophagitis with linear exudative lesions/erosions likely consistent with significant erosive esophagitis versus healing Rachel-Herring tears. 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 Stomach was cannulated and insufflated. Retroflexion revealed a small sliding hiatal hernia. There were scattered rare tiny gastric erosions without active bleeding. In the antrum there were several linear shallow erosions consistent with mild erosive gastritis. Pylorus was traversed. Duodenum and duodenal bulb appeared normal. Endoscope was withdrawn into the gastric lumen. At this time the nasogastric tube was withdrawn as there was no evidence of any bleeding and no significant retained gastric liquid. Gastric antral mucosal biopsy was obtained for histopathologic analysis
--- NOTE | 2023-09-17 13:09 | SUR.PHASEII ---
1220-Dr. Zavala notified of patients oral temperature of 99.3. no new orders at this time.
--- NOTE | 2023-09-17 14:04 | P.PNANES_ITS ---
[facility] Disclaimer: The information contained in this section may have been updated after the patient was seen, as this information can be updated by other users. Medical History (Updated 09/17/23 @ 04:15 by Janice Saldivar RN) Seizure disorder Surgical History History of surgery of head History of surgery on lower extremity Social History (Updated 09/17/23 @ 04:13 by Janice Saldivar RN) Smoking Status: Former smoker tobacco type: cigarettes packs per day: 1 alcohol intake: never substance use type: denies use current occupational status: other Travel in the last 8 weeks: None [facility] Anesthesia Checklist Patient Identification Patient Identification: Arm Band Structural Data Admitted From: Inpatient Planned Operative Procedure/s: EGD Consent for Planned Operative Procedure(s) Verified: Yes Verified Documents: Surgical Consent and History and Physical NPO Status Verified Time NPO: 00:00 Additional verifications Anesthesia Reactions: No Airway Assessment Mallampati Score:: Class II C-Spine Mobility Assessed: Yes TMJ Mobility Assessed: Yes Dentition: Good Dentition Neurological Assessment Level of Consciousness: Awake and Alert Anesthesia Plan Anesthesia Risk discussed: Yes Anesthesia Plan: Verified ASA Class: III Anesthesia Type: MAC
[2023-09-17 20:48] LABS: POC Glucose,Bedside 93 (70-110)
[2023-09-17 20:48] LABS: POC Glucose,Bedside 104 (70-110)
[2023-09-17 20:48] LABS: POC Glucose,Bedside 114 (70-110)
[2023-09-18 04:00] VITALS: BP 117/69; PULSE 78; RESP 16; TEMP 36.8; O2SAT 100; BMI 26.2
--- NOTE | 2023-09-18 04:10 | PC.NURSE ---
Pt is A&Ox4, Pt has complained of mild to moderate mouth and throat pain this shift that has been relieved with medication. Pt denies nausea and vomiting, and has had no stools this shift. Seizure precautions have been implemented. Pt denies needs and pain at this time.
[2023-09-18 05:10] LABS: POC Glucose,Bedside 94 (70-110)
[2023-09-18 05:59] LABS: Basophils # 0.1 K/mm3 (0-0.2); Basophils % 0.6 % (0.1-2.0); Eosinophils # 0.1 K/mm3 (0.0-0.4); Eosinophils % 0.9 % (0.1-12.0); Hematocrit 35.5 % (42.0-52.0); Hemoglobin 12.4 g/dL (14.1-18.0); Lymphocytes # 6.1 K/mm3 (0.7-4.5); Mean Corpuscular HGB Conc 34.9 g/dL (31.8-35.4); Mean Corpuscular Hemoglobin 32.1 pg (27.0-31.2); Mean Platelet Volume 8.6 fl (7.4-10.4); Monocytes # 0.8 K/mm3 (0.1-1.0); Monocytes % 7.5 % (1.7-9.3); Neutrophils # 3.7 K/mm3 (1.8-7.8); Neutrophils % 34.1 % (37.0-80.0); Platelet Count 305 K/mm3 (142-424); Red Blood Count 3.86 M/mm3 (4.60-6.20); Red Cell Distribution Width 16.1 % (11.5-17.5); White Blood Count 10.7 K/mm3 (4.8-10.8)
[2023-09-18 06:00] LABS: MANUAL DIFFERENTIAL MANUAL DIFFERENTIAL (MANUAL DIFF)
[2023-09-18 06:21] LABS: Alanine Aminotransferase 100 U/L (12-78); Albumin Level 3.2 g/dl (3.5-5.0); Albumin/Globulin Ratio 0.8 (1.1-1.8); Alkaline Phosphatase 117 U/L (38-126); Anion Gap 8.8 mEq/L (5-15); Aspartate Amino Transferase 68 U/L (17-59); Bilirubin,Total 0.6 mg/dl (0.2-1.3); Blood Urea Nitrogen 11 mg/dl (9-20); Carbon Dioxide 28 mmol/L (22.0-30.0); Chloride 103 mmol/L (98-107); Creatinine Clearance Estimated 97 mL/min (50-200); Estimated Glomerular Filt Rate 137 ml/min (>60); GFR (African American) 165 ML/MIN (>60); Globulin 3.8 g/dL (1.3-3.2); Glucose 95 mg/dl (74-100); Magnesium 2.1 mg/dl (1.6-2.3); Potassium 3.8 mmoL/L (3.5-5.1); Sodium 136 mmol/L (136-145)
[2023-09-18 06:57] LABS: Eosinophils % 3 % (0-3); Lymphocytes % 28 % (10-50); Monocytes % 4 % (2-9); Neutrophils % 65 % (42-76); Platelet Estimate Normal; RBC Morphology Normal; Total Cells Counted 100
[2023-09-18 08:00] VITALS: BP 117/73; PULSE 84; RESP 16; TEMP 36.3; O2SAT 96
--- NOTE | 2023-09-18 08:03 | P.PN_ITS ---
Subjective Narrative: Patient states that he feels better. He is tolerating clear liquid diet. No clinical bleeding. EGD revealed significant esophagitis. Exam Data for Last 24 hours Vital signs and Labs for Last 24 Hours: Temp Pulse Resp BP Pulse Ox O2 Del Method O2 Flow Rate 98.2 F 78 16 117/69 100 Room Air 2 09/18/23 04:00 09/18/23 04:00 09/18/23 04:00 09/18/23 04:00 09/18/23 04:00 09/18/23 07:00 09/17/23 12:00 Laboratory Results - last 24 hr 09/17/23 06:54: Hemoglobin A1c 4.8 09/17/23 11:11: POC Glucose 104 09/17/23 16:29: POC Glucose 114 H 09/17/23 20:37: POC Glucose 93 09/18/23 04:58: POC Glucose 94 09/18/23 05:40: WBC 10.7 D, RBC 3.86 L, Hgb 12.4 L, Hct 35.5 L, MCV 92.0, MCH 32.1 H, MCHC 34.9, RDW 16.1, Plt Count 305, MPV 8.6, Neut % (Auto) 34.1 L, Lymph % (Auto) 57.0 H, [place] % (Auto) 7.5, Eos % (Auto) 0.9, Baso % (Auto) 0.6, Neut # (Auto) 3.7, Lymph # (Auto) 6.1 H, [place] # (Auto) 0.8, Eos # (Auto) 0.1, Baso # (Auto) 0.1, Total Counted 100, Neutrophils % (Manual) 65, Lymphocytes % (Manual) 28, Monocytes % (Manual) 4, Eosinophils % (Manual) 3, Platelet Estimate Normal, RBC Morphology Normal, Sodium 136, Potassium 3.8, Chloride 103, Carbon Dioxide 28, Anion Gap 8.8, BUN 11, Creatinine 0.60 L, Estimated Creat Clear 97, Estimated GFR 137, Est GFR ( Amer) 165, Glucose 95, Calcium 8.0 L, Magnesium 2.1, Total Bilirubin 0.6, AST 68 H D, ALT 100 H, Alkaline Phosphatase 117, Total Protein 7.0, Albumin 3.2 L, Globulin 3.8 H, Albumin/Globulin Ratio 0.8 L I & O for Last 24 hours: Intake & Output 09/15/23 09/16/23 09/17/23 09/18/23 11:59 11:59 11:59 11:59 Intake Total 820 / 820 Output Total 1250 / 1250 400 / 400 Balance -1250 / -1250 420 / 420 Weight 195 lb 9.6 oz 198 lb *Routine Abdominal Exam Abdominal: Present soft; Absent tenderness Progress Note: A&P Assessment and plan (1) Breakthrough seizure: Status: Acute (2) Erosive esophagitis: Status: Acute Assessment and plan: Continue medical management of candidiasis and erosive esophagitis. I will go ahead and advance diet to full liquid. Monitor hemoglobin. (3) Candidiasis of mouth: Status: Acute (4) Left thyroid nodule: Status: Acute (5) Transaminitis: Status: Acute (6) Seizure disorder: Problem details: started in 1962 Status: Acute
[2023-09-18 11:31] LABS: POC Glucose,Bedside 104 (70-110)
[2023-09-18 11:34] VITALS: BP 123/67; PULSE 84; RESP 18; TEMP 36.6; O2SAT 97
[2023-09-18 16:00] VITALS: BP 120/71; PULSE 80; RESP 16; TEMP 36.6; O2SAT 97
[2023-09-18 17:04] LABS: POC Glucose,Bedside 107 (70-110)
--- NOTE | 2023-09-18 17:58 | EXP.PN ---
Subjective *Date: 09/18/23 *Time: 17:58 Interval history: Patient was seen and evaluated at the bedside. denies chest pain, shortness of breath, nausea, vomiting, abdominal pain. Patient does not have any complaints at this time. feels better overall Exam Data for Last 24 hours Vital signs and Labs for Last 24 Hours: Temp Pulse Resp BP Pulse Ox O2 Del Method O2 Flow Rate 97.8 F 84 18 123/67 97 Room Air 2 09/18/23 11:34 09/18/23 11:34 09/18/23 11:34 09/18/23 11:34 09/18/23 11:34 09/18/23 11:34 09/17/23 12:00 Laboratory Results - last 24 hr 09/17/23 11:11: POC Glucose 104 09/17/23 16:29: POC Glucose 114 H 09/17/23 20:37: POC Glucose 93 09/18/23 04:58: POC Glucose 94 09/18/23 05:40: WBC 10.7 D, RBC 3.86 L, Hgb 12.4 L, Hct 35.5 L, MCV 92.0, MCH 32.1 H, MCHC 34.9, RDW 16.1, Plt Count 305, MPV 8.6, Neut % (Auto) 34.1 L, Lymph % (Auto) 57.0 H, [place] % (Auto) 7.5, Eos % (Auto) 0.9, Baso % (Auto) 0.6, Neut # (Auto) 3.7, Lymph # (Auto) 6.1 H, [place] # (Auto) 0.8, Eos # (Auto) 0.1, Baso # (Auto) 0.1, Total Counted 100, Neutrophils % (Manual) 65, Lymphocytes % (Manual) 28, Monocytes % (Manual) 4, Eosinophils % (Manual) 3, Platelet Estimate Normal, RBC Morphology Normal, Sodium 136, Potassium 3.8, Chloride 103, Carbon Dioxide 28, Anion Gap 8.8, BUN 11, Creatinine 0.60 L, Estimated Creat Clear 97, Estimated GFR 137, Est GFR ( Amer) 165, Glucose 95, Calcium 8.0 L, Magnesium 2.1, Total Bilirubin 0.6, AST 68 H D, ALT 100 H, Alkaline Phosphatase 117, Total Protein 7.0, Albumin 3.2 L, Globulin 3.8 H, Albumin/Globulin Ratio 0.8 L 09/18/23 11:18: POC Glucose 104 09/18/23 16:57: POC Glucose 107 I & O for Last 24 hours: Intake & Output 09/15/23 09/16/23 09/17/23 09/18/23 23:59 23:59 23:59 23:59 Intake Total 470 / 820 890 / 890 Output Total 1650 / 1650 Balance -1180 / -830 890 / 890 Weight 86.183 kg 88.723 kg 89.811 kg Constitutional Constitutional: no acute distress *Routine HEENT Exam Head: Present normocephalic Eye: Present EOMI and PERRL ENT: Present mucous membranes moist *Routine Neck Exam Neck: Present supple; Absent lymphadenopathy *Routine Respiratory Exam Respiratory: Present CTA bilaterally *Routine Cardiovascular Exam Cardiovascular: Present RRR *Routine Abdominal Exam Abdominal: Present soft and normoactive bowel sounds; Absent tenderness *Routine Extremities Exam Extremities: Absent cyanosis, clubbing or edema *Routine Skin Exam Skin: Present warm; Absent rash *Routine Neurological Exam Neurological: Present alert and oriented X3 Assessment and Plan *Assessment and plan (1) Breakthrough seizure: Status: Acute Category: Medical Code(s): G40.919 - Epilepsy, unspecified, intractable, without status epilepticus (2) Erosive esophagitis: Status: Acute Category: Medical Code(s): K22.10 - Ulcer of esophagus without bleeding (3) Candidiasis of mouth: Status: Acute Category: Medical Code(s): B37.0 - Candidal stomatitis (4) Left thyroid nodule: Status: Acute Category: Medical Code(s): E04.1 - Nontoxic single thyroid nodule (5) Transaminitis: Status: Acute Category: Medical Code(s): R74.01 - Elevation of levels of liver transaminase levels (6) Seizure disorder: Problem Comment: started in 1962 Status: Acute Category: Medical Code(s): G40.909 - Epilepsy, unspecified, not intractable, without status epilepticus Plan Patient is a [age]-year-old male with past medical history of seizure disorder who presented to hospital for seizure disorder, difficulty swallowing Assessment Breakthrough seizure Seizure disorder Esophagitis Thyroid nodule, lymphadenopathy Transaminitis Plan Patient is a started on Keppra, continue Continue IV fluconazole Patient is status post EGD, did show evidence of pancreatitis Continue PPI Monitor CBC, BMP, LFTs Continue to advance diet
--- NOTE | 2023-09-18 18:53 | PC.NURSE ---
Patient states feeling much better this shift. Patient has had no coffee ground emesis and is tolerating a full liquid dieet. PAtient A&Ox4 and VSS.
[2023-09-18 20:00] VITALS: BP 119/67; PULSE 82; RESP 18; TEMP 36.6; O2SAT 96
[2023-09-18 20:23] LABS: POC Glucose,Bedside 108 (70-110)
[2023-09-18 23:57] VITALS: BP 121/70; PULSE 76; RESP 18; TEMP 36.6; O2SAT 95
[2023-09-19 04:00] VITALS: BP 117/74; PULSE 81; RESP 18; TEMP 36.9; O2SAT 97; BMI 26.2
--- NOTE | 2023-09-19 05:34 | PC.NURSE ---
Patient has had a great night. Has been able to sleep most of the shift. Patient early in shift did complain of a cough. RN listened to lung sounds they were clear. Patient states he was not coughing anything up. RN told patient that if it were to get worse to inform the staff. No other issues have been noted. Did not complain of pain or nausea.
[2023-09-19 06:13] LABS: POC Glucose,Bedside 127 (70-110)
[2023-09-19 06:21] LABS: Chloride 106 mmol/L (98-107)
[2023-09-19 06:22] LABS: Potassium 3.3 mmoL/L (3.5-5.1); Sodium 137 mmol/L (136-145)
[2023-09-19 06:24] LABS: Alanine Aminotransferase 94 U/L (12-78); Aspartate Amino Transferase 72 U/L (17-59); Blood Urea Nitrogen 7 mg/dl (9-20); Creatinine Clearance Estimated 97 mL/min (50-200); Estimated Glomerular Filt Rate 137 ml/min (>60); GFR (African American) 165 ML/MIN (>60)
[2023-09-19 06:25] LABS: Albumin Level 3.1 g/dl (3.5-5.0); Albumin/Globulin Ratio 0.8 (1.1-1.8); Alkaline Phosphatase 114 U/L (38-126); Anion Gap 6.3 mEq/L (5-15); Bilirubin,Total 0.5 mg/dl (0.2-1.3); Carbon Dioxide 28 mmol/L (22.0-30.0); Globulin 3.7 g/dL (1.3-3.2); Glucose 95 mg/dl (74-100); Total Protein,Serum 6.8 g/dl (6.3-8.2)
[2023-09-19 08:00] VITALS: BP 133/62; PULSE 85; RESP 17; TEMP 36.6; O2SAT 94
[2023-09-19 11:23] LABS: POC Glucose,Bedside 106 (70-110)
[2023-09-19 12:49] LABS: HIV Screen 4th Generation wRfx Non Reactive (Non Reactive)
--- NOTE | 2023-09-19 13:34 | EXP.DC.SUM ---
General Admission date:: 09/17/23 Discharge date: 09/19/23 HPI HPI HPI: Mr. Curiel is a 62-year-old male with history of seizure disorder and recent diagnosis of thrush by his PCP. He presented to the ER because of sores in his mouth and poor p.o. intake. 2 weeks ago he had a generalized tonic-clonic seizure and was seen at . He left before workup was complete. Had sores in his mouth and has had progressive pain since. Noted to develop white discoloration on his tongue causing him to present for difficulty swallowing medications. Has not taken his meds in almost a week. Workup in the ER found oral Jo Ann. Imaging of chest and abdomen showed significant esophagitis, concerning for candidal esophagitis. Also noted to have upper abdominal lymphadenopathy, mesenteric stranding, and thyroid nodule. Discussed case with medicine for admission, medicine initially requested transfer given complexities of patient's condition with concern for possible neoplastic process and immune compensation with thrush. Patient also noted to have concern for GI bleed with hematemesis On presentation. NG was placed because of his vomiting. Output was black in character. Attempts were made to transfer, patient is on wait list for . Medicine was contacted again for admission. Patient admitted for further management. On evaluation, patient states he is feeling better after placement of NG and requesting to come out. No longer having nausea. States he has not had a bowel movement 2 days. Surgery consulted after admission. Stable on room air. Denies any shortness of breath, confusion, chest pain, diarrhea. No fevers or chills. No weight loss Hospital Course Hospital Course Hospital Course: Patient was seen and evaluated at the bedside on the day of discharge. Patient is stable for discharge. Patient wishes to be discharged. All patient questions were answered and patient was given time to ask questions. Patient was discharged in stable condition. Patient is a [age]-year-old male with past medical history of seizure disorder who presented to hospital for seizure disorder, difficulty swallowing Assessment Breakthrough seizure Seizure disorder Esophagitis Thyroid nodule, lymphadenopathy Transaminitis stable for dc, patient informed to follow up with PCP and ENt for thyroid nodules, family and patient verbalized understanding Exam Data for Last 24 hours Vital signs and Labs for Last 24 Hours: Temp Pulse Resp BP Pulse Ox O2 Del Method O2 Flow Rate 97.9 F 85 17 133/62 94 L Room Air 2 09/19/23 08:00 09/19/23 08:00 09/19/23 08:00 09/19/23 08:00 09/19/23 08:00 09/19/23 08:00 09/17/23 12:00 Laboratory Results - last 24 hr 09/18/23 05:40: HIV 1&2 Ag/Ab, 4th Gen Non reactive 09/18/23 16:57: POC Glucose 107 09/18/23 20:12: POC Glucose 108 09/19/23 05:25: Sodium 137, Potassium 3.3 L, Chloride 106, Carbon Dioxide 28, Anion Gap 6.3, BUN 7 L D, Creatinine 0.60 L, Estimated Creat Clear 97, Estimated GFR 137, Est GFR ( Amer) 165, Glucose 95, Calcium 8.0 L, Total Bilirubin 0.5, AST 72 H, ALT 94 H, Alkaline Phosphatase 114, Total Protein 6.8, Albumin 3.1 L, Globulin 3.7 H, Albumin/Globulin Ratio 0.8 L 09/19/23 05:48: POC Glucose 127 H 09/19/23 11:14: POC Glucose 106 I & O for Last 24 hours: Intake & Output 09/16/23 09/17/23 09/18/23 09/19/23 23:59 23:59 23:59 23:59 Intake Total 470 / 820 890 / 1090 780 / 780 Output Total 1650 / 1650 0 / 0 0 / 0 Balance -1180 / -830 890 / 1090 780 / 780 Weight 86.183 kg 88.723 kg 89.811 kg 89.63 kg Constitutional Constitutional: no acute distress *Routine HEENT Exam Head: Present normocephalic Eye: Present EOMI and PERRL ENT: Present mucous membranes moist *Routine Neck Exam Neck: Present supple; Absent lymphadenopathy *Routine Respiratory Exam Respiratory: Present CTA bilaterally *Routine Cardiovascular Exam Cardiovascular: Present RRR *Routine Abdominal Exam Abdo
[2023-09-20 07:40] LABS: HBsAg Screen Negative (Negative); HCV Ab Non Reactive (Non Reactive); Hep A Ab, IGM Negative (Negative); Hep B Core Ab, IgM Negative (Negative)
--- NOTE | 2023-09-20 13:57 | CARE MANAGER ---
Spoke with patient's family. They state patient is doing well. He has his medication and has been taking it. He is aware of follow up appointment and verified Keppra dose with them as they were unsure what he was to take. Denies other questions or concerns. LUIGI Torres
== END 2023-09-19 14:17 | disposition home or self-care (01) | DRG 369 ==
LOC: ER 09-17 02:14 → 2ND 09-17 03:36
PROVIDERS: Surgery; Admitting Provider Internal Medicine Adolescent Medicine; Emergency Provider Emergency Medicine; Visit Provider Internal Medicine Adolescent Medicine
PROC: 0DJ08ZZ Inspection of Upper Intestinal Tract, Via Natural or Artificial Opening Endoscopic (ICD-10-PCS; CPT 43235; principal; 2023-09-17 11:00)
DX: K20.91 Esophagitis, unspecified with bleeding (principal); B37.0 Candidal stomatitis; G40.919 Epilepsy, unspecified, intractable, without status epilepticus; K29.70 Gastritis, unspecified, without bleeding; E04.1 Nontoxic single thyroid nodule; D70.9 Neutropenia, unspecified; G40.909 Epilepsy, unspecified, not intractable, without status epilepticus; Z87.891 Personal history of nicotine dependence; K44.9 Diaphragmatic hernia without obstruction or gangrene
CPT/HCPCS: 43239; 36415; 71045; 71275; 74174; 80053; 80074; 80186; 82272; 82803; 82962; 83036; 83605; 83615; 83690; 83735; 84436; 84443; 84550; 85007; 85025; 85610; 85730; 86703; 87040; 99291; G0328; G0432; J1450; J1953; J2405; Q9967

== ENCOUNTER 2023-12-17 09:39 | Emergency (ER) | payer MEDICARE, MEDICAID, SELFPAY ==
[2023-12-17 09:39] VITALS: BP 122/72; PULSE 112; RESP 30; TEMP 36.6; O2SAT 91; BMI 25.9
--- NOTE | 2023-12-17 09:42 | ED_ITS ---
Discharge Plan Disposition Patient Disposition: Left Against Medical Advice Condition: Fair Prescriptions Prescriptions: No Action levofloxacin 750 mg tablet 750 mg PO DAILY 5 Days Qty: 5 0RF clotrimazole 10 mg Karen 10 mg MUCOUS MEMBRANE 5XDAY levetiracetam 500 mg tablet 500 mg PO DAILY Patient Comments: TAKE 1 TABLET BY MOUTH IN THE MORNING AND 2 TABLETS IN THE EVENING diazepam 10 mg tablet 10 mg PO BID PRN (Reason: Seizures) Patient Comments: TAKE 1 TABLET BY MOUTH TWICE DAILY NEEDED FOR ACUTE SEIZURES levetiracetam 500 mg tablet 1,000 mg PO HS phenytoin sodium extended 100 mg capsule 300 mg PO HS Patient Comments: TAKE 2 CAPSULES BY MOUTH IN THE MORNING AND 3 CAPSULES IN THE EVENING phenytoin sodium extended 100 mg capsule 200 mg PO DAILY Patient Comments: TAKE 2 CAPSULES BY MOUTH IN THE MORNING AND 3 CAPSULES IN THE EVENING pantoprazole [Protonix] 40 mg tablet,delayed release (DR/EC) 40 mg PO BID Qty: 30 0RF Referrals Follow up/Referrals: Provider,Referral, MD [Primary Care Provider] - See instructions Clinical Impressions Clinical Impression: Left against medical advice Instructions Patient Instructions: DI for Seizure Disorder -- Adult, DI for Seizure (Not Epilepsy/Seizure Disorder), DI for Seizure Disorder -- Child Discharge ED Provider: Reji Alfaro General Adult HPI General Chief complaint: Seizure Stated complaint: seizure Time Seen by Provider: 12/17/23 09:41 History of Present Illness HPI narrative: Patient presents following witnessed generalized tonic-clonic seizure. Much of this history is difficult to obtain as patient has no family members at bedside and patient has no recollection of symptoms. He does report seizure disorder and compliance with antiepileptic medication. My understanding, per EMS, the patient was found near white substance and he had reported improvement in mentation after administration of Narcan. This was 2 mg IV. Patient denies any of this. Symptoms reportedly lasted approximately 2 minutes in nature. They ar e reportedly generalized. Patient states he was in his normal state of health prior to onset of symptoms. His last recollection of the events was eating breakfast this morning. Please note that above description of symptoms, in this electronic medical record under categorization of recalled from ER triage doctor by RN are reflective of an initial nursing assessment, however, is not reflective of my full history and physical exam that was personally taken and clarified. Consequentially, this preceding description of symptoms, which may include the patient's categorized chief complaint in the EMR, do not reflect my personal clinical impression, and the ultimate description of history of present illness and patient stated complaints should be deferred to this section of the note. Unless stated otherwise or congruent with this section of the note, additional signs, symptoms, or incongruence should be interpreted as inaccurate with my clinical impression. Related Data Home Medications Medication Instructions Recorded Confirmed clotrimazole 10 mg karen 10 mg mucous membrane 5XDAY 09/16/23 09/17/23 diazepam 10 mg tablet 10 mg PO BID PRN Seizures 09/16/23 09/17/23 levetiracetam 500 mg tablet 1,000 mg PO HS 09/16/23 09/17/23 levetiracetam 500 mg tablet 500 mg PO DAILY 09/16/23 09/17/23 phenytoin sodium extended 100 mg 200 mg PO DAILY 09/16/23 09/17/23 capsule phenytoin sodium extended 100 mg 300 mg PO HS 09/16/23 09/17/23 capsule Previous Rx's Medication Instructions Recorded levofloxacin 750 mg tablet 750 mg PO DAILY 5 days #5 tabs 09/16/23 pantoprazole 40 mg tablet,delayed 40 mg PO BID #30 tabs 09/19/23 release (Protonix) Allergies Allergy/AdvReac Type Severity Reaction Status Date / Time phenobarbital Allergy Verified 09/16/23 11:06 [facility] Disclaimer: The information contained in this section may have been updated after the patient was seen, as this information can be updated by other users. Medical History (Updated 12/17/23 @ 13:11 by Seth Hirsch RN) Acute upper gastrointestinal bleeding Breakthrough seizure Jo Ann esophagitis Candidiasis of mouth Elevated liver enzymes Erosive esophagitis Left thyroid nodule Neutropenia Pneumonia Seizure disorder Tongue ulcer Transaminitis Surgical History History of surgery of head History of surgery on lower extremity Social History Smoking Status: Current every day smoker tobacco type: cigarettes packs per day: 1 alcohol intake: never substance use type: denies use current occupational status: other Travel in the last 8 weeks: None ROS Obtained: Yes Systems reviewed as appropriate & no additional complaints except as documented As per HPI Physical Exam General General appearance: alert Comment: Drowsy however alert, interactive, no focal neurologic deficit, able to answer questions appropriately Head Head exam: atraumatic and normocephalic Eye Eye exam: Present normal appearance Neck Neck exam: Present normal inspection Chest Chest inspection: Present normal inspection and symmetric chest wall rise Respiratory Respiratory exam: Present normal lung sounds bilaterally; Absent respiratory distress Cardiovascular Cardiovascular exam: Present regular rate and normal rhythm Abdominal Exam Abdominal exam: Present soft Neurological Exam Neurological exam: Present alert and oriented X3 Psychiatric Psychiatric exam: Present normal affect and normal mood Skin Skin exam: Present warm and dry Medical Decision Making Medical Records Medical records reviewed: Yes I reviewed the patient's medical records. Elmer Inquiry Pt receiving controlled substance: No Vital Signs: 12/17/23 09:39 12/17/23 10:00 12/17/23 10:30 Temperature 97.9 F Temperature Source Oral Pulse Rate 105 H 94 H Pulse Rate [Left Radial] 112 H Respiratory Rate 30 H 23 25 H Blood Pressure 124/66 106/67 L Blood Pressure [Right Arm] 122/72 Blood Pressure Mean Blood Pressure Mean [Right Arm] 88 02 Sat by Pulse Oximetry 91 L 97 95 Oxygen Delivery Method Nasal Cannula Nasal Cannula Nasal Cannula Oxygen Flow Rate (LPM) 2 2 2 12/17/23 11:00 12/17/23 11:30 12/17/23 12:51 Temperature 98.0 F Temperature Source Pulse Rate 89 87 79 Pulse Rate [Left Radial] Respiratory Rate 23 28 H 15 Blood Pressure 102/65 L 102/65 L 120/80 Blood Pressure [Right Arm] Blood Pressure Mean 74 Blood Pressure Mean [Right Arm] 02 Sat by Pulse Oximetry 92 L 93 L Oxygen Delivery Method Nasal Cannula Oxygen Flow Rate (LPM) Lab Data Lab Results 12/17/23 09:40: WBC 20.1 H*, RBC 4.58 L, Hgb 14.3, Hct 42.1, MCV 92.0, MCH 31.3 H, MCHC 34.0, RDW 16.0, Plt Count 269, MPV 8.3, Neut % (Auto) 38.4, Lymph % (Auto) 53.8 H, [place] % (Auto) 6.8, Eos % (Auto) 0.4, Baso % (Auto) 0.6, Neut # (Auto) 7.7, Lymph # (Auto) 10.8 H, [place] # (Auto) 1.4 H, Eos # (Auto) 0.1, Baso # (Auto) 0.1, Total Counted 100, Neutrophils % (Manual) 33 L, Band Neutrophils % 11.0 H, Lymphocytes % (Manual) 40, Monocytes % (Manual) 16 H, Platelet Estimate Normal, Anisocytosis 1+, Microcytosis 1+, Sodium 136, Potassium 3.2 L, Chloride 103, Carbon Dioxide 25, Anion Gap 11.2, BUN 13, Creatinine 0.80, Estimated Creat Clear 93, Estimated GFR 98, Est GFR ( Amer) 118, Glucose 166 H, Calcium 8.6, Magnesium 1.6, Total Bilirubin 0.8, AST 40, ALT 32, Alkaline Phosphatase 223 H, Total Protein 7.9, Albumin 3.7, Globulin 4.2 H, Albumin/Globulin Ratio 0.9 L, TSH 1.13, Free T4 1.42, Plasma/Serum Alcohol < 10 12/17/23 10:15: SARS-CoV-2 (PCR) Not detected, Influenza A Untype (PCR) Not detected, Influenza Type B (PCR) Not detected 12/17/23 09:40 12/17/23 09:40 Orders (Tests/Meds): ED MEDICATIONS Discontinued Medications Generic Name Dose Route Start Last Admin Trade Name Freq PRN Reason Stop Dose Admin Levetiracetam 4,000 mg/ Sodium 140 mls @ 280 mls/hr 12/17/23 09:44 12/17/23 09:57 Chloride IV 12/17/23 09:45 280 mls/hr ONCE ONE Administration Lactated Ringer's 1,000 mls @ 999 mls/hr 12/17/23 09:50 12/17/23 10:05 Lactated Ringer's 1000 Ml Bag IV 12/17/23 10:50 999 mls/hr .Q1H1M ONE Administration ORDERS Category Date Time Status XR chest portable Stat Exams 12/17/23 09:44 Completed CBC w/Auto Diff [Complete Blood Count Auto Diff] Stat Lab 12/17/23 09:40 Completed CMP [Comprehensive Metabolic Panel] Stat Lab 12/17/23 09:40 Completed Ethanol [Ethyl Alcohol] Stat Lab 12/17/23 09:40 Completed Free T4 (Free Thyroxine) Stat Lab 12/17/23 09:40 Completed MAG [Magnesium] Stat Lab 12/17/23 09:40 Completed Rapid PCR Covid and Flu A/B Stat Lab 12/17/23 10:15 Completed TSH [Thyroid Stimulating Hormone] Stat Lab 12/17/23 09:40 Completed ECG initial Besson Routine Y 12/17/23 09:42 Completed Medical Decision Narrative: Patient with history and exam per above presenting for evaluation of reported seizure, concern for recreational drug use per EMS Diagnoses considered include breakthrough seizure, either secondary to medication noncompliance, COVID ingestion, electrolyte abnormality, no clinical evidence of known history of seizure to warrant further workup for intracranial hemorrhage, stroke, or new onset seizure. ED workup and treatment included: ED MEDICATIONS Discontinued Medications Generic Name Dose Route Start Last Admin Trade Name Freq PRN Reason Stop Dose Admin Levetiracetam 4,000 mg/ Sodium 140 mls @ 280 mls/hr 12/17/23 09:44 12/17/23 09:57 Chloride IV 12/17/23 09:45 280 mls/hr ONCE ONE Administration Lactated Ringer's 1,000 mls @ 999 mls/hr 12/17/23 09:50 12/17/23 10:05 Lactated Ringer's 1000 Ml Bag IV 12/17/23 10:50 999 mls/hr .Q1H1M ONE Administration ORDERS Category Date Time Status XR chest portable Stat Exams 12/17/23 09:44 Completed CBC w/Auto Diff [Complete Blood Count Auto Diff] Stat Lab 12/17/23 09:40 Completed CMP [Comprehensive Metabolic Panel] Stat Lab 12/17/23 09:40 Completed Ethanol [Ethyl Alcohol] Stat Lab 12/17/23 09:40 Completed Free T4 (Free Thyroxine) Stat Lab 12/17/23 09:40 Completed MAG [Magnesium] Stat Lab 12/17/23 09:40 Completed Rapid PCR Covid and Flu A/B Stat Lab 12/17/23 10:15 Completed TSH [Thyroid Stimulating Hormone] Stat Lab 12/17/23 09:40 Completed ECG initial Besson Routine Y 12/17/23 09:42 Completed Labs were independently interpreted by me, significant for leukocytosis, suspected reactive, no hypoglycemia, electrolytes within normal limits, ethyl alcohol undetectable, urine drug screen not collected Patient ultimately had family member present to bedside and elects to leave AGAINST MEDICAL ADVICE at this time. Risks, including disability, were discussed and patient is clinically able to express an understanding and agreement, in his own words, and in conjunction with family member of these risks and still elects to be discharged. He is encouraged to return with any new or worsening symptoms or should he change his mind and complete entirety of workup. Critical Care Critical Care Time Critical Care Time: No
--- NOTE | 2023-12-17 09:42 | ECG_ITS ---
APPROVED REPORT Exam: Resting ECG HR:111 bpm ECG Measurements Heart Rate 111 AXES CO 163 P 73 QRSd 87 QRS 63 QT 340 T 63 QTc 405 Conclusion SINUS TACHYCARDIA ABNORMAL RHYTHM ECG INTERPRETATION BASED ON A DEFAULT AGE OF 40 YEARS UNCONFIRMED REPORT Electronically signed by : Tito Bright MD 12/17/2023 19:58:29
--- NOTE | 2023-12-17 09:44 | XR_ITS ---
FINAL REPORT CLINICAL HISTORY: seizure, shortness of breath COMPARISON: 09/19/2023 FINDINGS: A portable view of the chest was obtained. Cardiac and mediastinal silhouettes are within normal limits. Irregular opacity in the left upper lobe appears larger than on the prior exam now measures 2.7 cm. The lung volumes are low. Bibasilar airspace disease is likely atelectasis. There may be a small left pleural effusion. There is no pneumothorax. IMPRESSION: Interval increase in size irregular nodular opacity left upper lobe. If this is never been evaluated with CT, recommend CT chest follow-up. Bibasilar atelectasis and possible small left pleural effusion. Reviewed, Interpreted and Dictated by Nora Marcial MD Transcribed by Zee Mckeon Authenticated and [facility]
[2023-12-17 09:49] VITALS: BMI 25.9
[2023-12-17 09:57] LABS: Basophils # 0.1 K/mm3 (0-0.2); Basophils % 0.6 % (0.1-2.0); Eosinophils # 0.1 K/mm3 (0.0-0.4); Eosinophils % 0.4 % (0.1-12.0); Hematocrit 42.1 % (42.0-52.0); Hemoglobin 14.3 g/dL (14.1-18.0); Lymphocytes # 10.8 K/mm3 (0.7-4.5); Lymphocytes % 53.8 % (10-50); Mean Corpuscular Hemoglobin 31.3 pg (27.0-31.2); Mean Platelet Volume 8.3 fl (7.4-10.4); Monocytes # 1.4 K/mm3 (0.1-1.0); Monocytes % 6.8 % (1.7-9.3); Neutrophils # 7.7 K/mm3 (1.8-7.8); Neutrophils % 38.4 % (37.0-80.0); Platelet Count 269 K/mm3 (142-424); Red Blood Count 4.58 M/mm3 (4.60-6.20)
[2023-12-17] MEDS: levETIRAcetam 4,000 MG in 0.9 % SODIUM CHLORIDE 100 ML 280 MG IV (09:57)
[2023-12-17 10:00] VITALS: BP 124/66; PULSE 105; RESP 23; O2SAT 97
[2023-12-17 10:01] LABS: Alanine Aminotransferase 32 U/L (12-78); Albumin Level 3.7 g/dl (3.5-5.0); Albumin/Globulin Ratio 0.9 (1.1-1.8); Alkaline Phosphatase 223 U/L (38-126); Anion Gap 11.2 mEq/L (5-15); Aspartate Amino Transferase 40 U/L (17-59); Bilirubin,Total 0.8 mg/dl (0.2-1.3); Blood Urea Nitrogen 13 mg/dl (9-20); Calcium 8.6 mg/dl (8.4-10.2); Carbon Dioxide 25 mmol/L (22.0-30.0); Chloride 103 mmol/L (98-107); Creatinine Clearance Estimated 93 mL/min (50-200); Estimated Glomerular Filt Rate 98 ml/min (>60); GFR (African American) 118 ML/MIN (>60); Globulin 4.2 g/dL (1.3-3.2); Glucose 166 mg/dl (74-100); Potassium 3.2 mmoL/L (3.5-5.1); Sodium 136 mmol/L (136-145); Total Protein,Serum 7.9 g/dl (6.3-8.2)
[2023-12-17 10:02] LABS: Magnesium 1.6 mg/dl (1.6-2.3)
[2023-12-17] MEDS: LACTATED RINGERS 1000ML 1,000 ML 999 ML IV (10:05)
[2023-12-17 10:15] LABS: White Blood Count 20.1 K/mm3 (4.8-10.8)
[2023-12-17 10:16] LABS: Ethyl Alcohol < 10 mg/dl (0-10); MANUAL DIFFERENTIAL MANUAL DIFFERENTIAL (MANUAL DIFF)
[2023-12-17 10:17] LABS: Coronavirus 19, PCR Not Detected (NotDetected); Influenza A, PCR Not Detected (NotDetected); Influenza B, PCR Not Detected (NotDetected)
[2023-12-17 10:30] VITALS: BP 106/67; PULSE 94; RESP 25; O2SAT 95
[2023-12-17 10:32] LABS: Thyroid Stimulating Hormone 1.13 uIU/mL (0.465-4.68)
[2023-12-17 10:38] LABS: Free T4 (Free Thyroxine) 1.42 ng/dl (0.78-2.19)
--- NOTE | 2023-12-17 10:41 | PC.NURSE ---
Pt resting in bed with eyes closed. Respirations are even and unlabored. No needs or complaints voiced. Call light within reach.
[2023-12-17 10:43] LABS: Lymphocytes % 40 % (10-50); Monocytes % 16 % (2-9); Neutrophils % 33 % (42-76); Total Cells Counted 100
[2023-12-17 10:44] LABS: Anisocytosis 1+; Microcytosis 1+; Platelet Estimate Normal
[2023-12-17 11:00] VITALS: BP 102/65; PULSE 89; RESP 23; O2SAT 92
[2023-12-17 11:30] VITALS: BP 102/65; PULSE 87; RESP 28; O2SAT 93
[2023-12-17 12:51] VITALS: BP 120/80; PULSE 79; RESP 15; TEMP 36.7
--- NOTE | 2023-12-17 12:51 | PC.NURSE ---
pt requesting to leave against medical advice. pt explained his lab results that were back and explained to pt risk of leaving. explained to pt he is able to come back to ED if he feels the need to be seen.
== END 2023-12-17 13:11 | disposition left against medical advice (07) ==
PROVIDERS: Emergency Provider Emergency Medicine
DX: G40.909 Epilepsy, unspecified, not intractable, without status epilepticus (principal); E04.1 Nontoxic single thyroid nodule; F17.210 Nicotine dependence, cigarettes, uncomplicated; D72.829 Elevated white blood cell count, unspecified
CPT/HCPCS: 71045; 80053; 83735; 84439; 84443; 85007; 85025; 87636; 93005; 96361; 96374; 99285; J1953

== ENCOUNTER 2023-12-19 12:22 | Emergency (ER) | payer MEDICARE, MEDICAID, SELFPAY ==
[2023-12-19 12:22] VITALS: BP 169/97; PULSE 92; RESP 18; TEMP 36.6; O2SAT 96; BMI 26.2
--- NOTE | 2023-12-19 12:35 | PC.NURSE ---
DR CORRAL AT BEDSIDE
--- NOTE | 2023-12-19 12:43 | HMH.EDGENADL ---
Discharge Plan Disposition Patient Disposition: Home, Self-Care Prescriptions Prescriptions: New cephalexin 500 mg capsule 500 mg PO QID 10 Days Qty: 40 0RF No Action levofloxacin 750 mg tablet 750 mg PO DAILY 5 Days Qty: 5 0RF clotrimazole 10 mg Karen 10 mg MUCOUS MEMBRANE 5XDAY levetiracetam 500 mg tablet 500 mg PO DAILY Patient Comments: TAKE 1 TABLET BY MOUTH IN THE MORNING AND 2 TABLETS IN THE EVENING diazepam 10 mg tablet 10 mg PO BID PRN (Reason: Seizures) Patient Comments: TAKE 1 TABLET BY MOUTH TWICE DAILY NEEDED FOR ACUTE SEIZURES levetiracetam 500 mg tablet 1,000 mg PO HS phenytoin sodium extended 100 mg capsule 300 mg PO HS Patient Comments: TAKE 2 CAPSULES BY MOUTH IN THE MORNING AND 3 CAPSULES IN THE EVENING phenytoin sodium extended 100 mg capsule 200 mg PO DAILY Patient Comments: TAKE 2 CAPSULES BY MOUTH IN THE MORNING AND 3 CAPSULES IN THE EVENING pantoprazole [Protonix] 40 mg tablet,delayed release (DR/EC) 40 mg PO BID Qty: 30 0RF Referrals Follow up/Referrals: Rowena Bourne [Primary Care Provider] - See instructions Activity Restrictions/Add. Instructions Additional Instructions/Restrictions: Follow-up with primary care doctor to ensure resolution of the superficial cellulitis on the right side of your face and your chronic joint pain. No evidence of deep space infection or systemic infection at this point. Specifically also no evidence of sepsis. Clinical Impressions Clinical Impression: Cellulitis of face, Chronic joint pain Discharge ED Provider: Loren Mathis General Adult HPI General Chief complaint: PAIN Stated complaint: sepsis, pain in joints Time Seen by Provider: 12/19/23 12:35 Mode of Arrival: Wheelchair Source of Information: Patient Limitations: No Limitations Description of Symptoms (Recalled from ER Triage Doc. by RN): Patient reports he has had joint pain for 1 month and chills. States he was seen here 2 days ago for seizure activity and left AMA. Patient states he is back now because joint pain is not getting better and he was told he has sepsis. History of Present Illness HPI narrative: Patient is a 63-year-old male presenting today primarily for right pain on the right side of his face. States has been ongoing for the last 24 hours. Also states he has had chronic joint pain which is been unchanged over the last several months. Was here few days ago was diagnosed with a seizure and left AMA there was some concern at that point for possible drug use. Patient denies any ongoing seizures no fevers or chills on my history. Denies any odontogenic pain prior to this redness. Did recently shave in the area of concern. Related Data Home Medications Medication Instructions Recorded Confirmed clotrimazole 10 mg karen 10 mg mucous membrane 5XDAY 09/16/23 09/17/23 diazepam 10 mg tablet 10 mg PO BID PRN Seizures 09/16/23 09/17/23 levetiracetam 500 mg tablet 1,000 mg PO HS 09/16/23 09/17/23 levetiracetam 500 mg tablet 500 mg PO DAILY 09/16/23 09/17/23 phenytoin sodium extended 100 mg 200 mg PO DAILY 09/16/23 09/17/23 capsule phenytoin sodium extended 100 mg 300 mg PO HS 09/16/23 09/17/23 capsule Previous Rx's Medication Instructions Recorded levofloxacin 750 mg tablet 750 mg PO DAILY 5 days #5 tabs 09/16/23 pantoprazole 40 mg tablet,delayed 40 mg PO BID #30 tabs 09/19/23 release (Protonix) cephalexin 500 mg capsule 500 mg PO QID 10 days #40 caps 12/19/23 Allergies Allergy/AdvReac Type Severity Reaction Status Date / Time phenobarbital Allergy Verified 09/16/23 11:06 [facility] Disclaimer: The information contained in this section may have been updated after the patient was seen, as this information can be updated by other users. Medical History (Updated 12/19/23 @ 12:43 by Loren Mathis MD) Acute upper gastrointestinal bleeding Breakthrough seizure Jo Ann esophagitis Candidiasis of mouth Elevated liver enzymes Erosive esophagitis Left thyroid nodule Neutropenia Pneumonia Seizure disorder Tongue ulcer Transaminitis Surgical History History of surgery of head History of surgery on lower extremity Social History Smoking Status: Never smoker alcohol intake: never substance use type: denies use current occupational status: other Travel in the last 8 weeks: None ROS Obtained: Yes All systems reviewed & no additional complaints except as documented Physical Exam General General appearance: alert ENT ENT exam: Present other (No evidence of infection in the mandibular or maxillary region of molars there is superficial erythema and tenderness on the right lateral aspect of the face) Respiratory Respiratory exam: Present normal lung sounds bilaterally Cardiovascular Cardiovascular exam: Present regular rate Neurological Exam Neurological exam: Present alert and oriented X3 Medical Decision Making Elmer Inquiry Pt receiving controlled substance: No Vital Signs: 12/19/23 12:22 Temperature 97.9 F Temperature Source Oral Pulse Rate [Right] 92 H Respiratory Rate 18 Blood Pressure [Right Arm] 169/97 H Blood Pressure Mean [Right Arm] 121 Blood Pressure Source [Right Arm] Automatic Cuff 02 Sat by Pulse Oximetry 96 Oxygen Delivery Method Room Air Orders (Tests/Meds): ED MEDICATIONS Generic Name Dose Route Start Last Admin Trade Name Freq PRN Reason Stop Dose Admin Cephalexin HCl 500 mg 12/19/23 12:41 Cephalexin 500mg Capsule PO 12/19/23 12:42 ONCE ONE Medical Decision Narrative: Afebrile nontoxic well-appearing 63-year-old presenting today with multiple complaints including chronic arthralgias and right-sided facial pain. No concern for deep space infection or odontogenic infection. He does have some erythema and swelling and tenderness over the right lateral aspect of his face consistent with a facial cellulitis most likely from recently shaving in this area and likely introducing skin arjun causing infection underneath the skin. First dose of Keflex given emergency department prescription is also been sent to his pharmacy return precautions emphasized. There seems to be nothing in association with his recent ED visit leaving AMA with seizures that are associated with today's visit. Patient was discharged in a stable condition Critical Care Critical Care Time Critical Care Time: No
[2023-12-19] MEDS: cephALEXin 500MG CAPSULE 500 MG PO (12:46)
[2023-12-19 12:55] VITALS: BP 159/92; PULSE 87; RESP 18; TEMP 36.7; O2SAT 98
== END 2023-12-19 12:56 | disposition home or self-care (01) ==
PROVIDERS: Emergency Provider Student in an Organized Health Care Education/Training Program; PCP Family Medicine
DX: L03.211 Cellulitis of face (principal); M25.50 Pain in unspecified joint; G40.909 Epilepsy, unspecified, not intractable, without status epilepticus; E04.1 Nontoxic single thyroid nodule
CPT/HCPCS: 99283

== ENCOUNTER 2024-01-18 16:16 | Emergency (ER) | payer MEDICARE, MEDICAID, SELFPAY ==
[2024-01-18 16:16] VITALS: BP 150/98; PULSE 103; RESP 18; TEMP 36.6; O2SAT 95; BMI 25.4
--- NOTE | 2024-01-18 16:41 | CT_ITS ---
PROCEDURE INFORMATION: Exam: CT Head Without Contrast Exam date and time: 01/18/2024 5:28 PM Age: 63 years old Clinical indication: Injury or trauma; Fall; Additional info: Breakthrough seziure + fall TECHNIQUE: Imaging protocol: Computed tomography of the head without contrast. Radiation optimization: All CT scans at this facility use at least one of these dose optimization techniques: automated exposure control; mA and/or kV adjustment per patient size (includes targeted exams where dose is matched to clinical indication); or iterative reconstruction. COMPARISON: CT CERVICAL SPINE WO CON 01/18/2024 5:28 PM FINDINGS: Limitations: Patient motion. Brain: There is cerebellar greater than cerebral volume loss. Decreased attenuation of the supratentorial white matter is likely secondary to chronic microvascular ischemia. No acute intracranial hemorrhage, midline shift or intracranial mass effect. There is age indeterminate low density at the right basal ganglia/james radiata. Cerebral ventricles: No ventriculomegaly. Paranasal sinuses: Visualized sinuses are unremarkable. No fluid levels. Mastoid air cells: Visualized mastoid air cells are well aerated. Bones/joints: Unremarkable. No acute fracture. Soft tissues: Left lateral facial soft tissue injury. IMPRESSION: Age indeterminate hypodensity at the right basal ganglia/james radiata. MRI as clinically warranted to assess for potential recent ischemic infarction.
--- NOTE | 2024-01-18 16:41 | CT_ITS ---
PROCEDURE INFORMATION: Exam: CT Cervical Spine Without Contrast Exam date and time: 01/18/2024 5:28 PM Age: 63 years old Clinical indication: Injury or trauma; Fall; Additional info: Breakthrough seziure + fall TECHNIQUE: Imaging protocol: Computed tomography of the cervical spine without contrast. Radiation optimization: All CT scans at this facility use at least one of these dose optimization techniques: automated exposure control; mA and/or kV adjustment per patient size (includes targeted exams where dose is matched to clinical indication); or iterative reconstruction. COMPARISON: CT HEAD/BRAIN WO CON 01/18/2024 5:28 PM FINDINGS: Bones/joints: [id number] levoconvex curvature. Trace retrolisthesis of C3 on C4. Vertebral body heights are preserved. [id number] degenerative change about the dens. Mild prevertebral osteophytosis. Mild for age facet joint degenerative change. No acute cervical spine fracture. Central canal stenosis greatest at C5-C6, likely moderate. Scattered cervical foraminal stenoses. Lungs: Lung apices are normal. Pleural spaces: No visible pneumothorax. Thyroid: Left thyroid mass measures 3.9 cm. Soft tissues: Unremarkable. IMPRESSION: 1. No acute osseous abnormality. 2. 3.9 cm left thyroid mass, ultrasound may be considered. COMMENTS: Consistent with the [employer]'s Incidental Findings Committee white paper (J Am Mariaelena Radiol 2015): In patients aged 35 years and older with an incidental thyroid nodule equal to or greater than 1.[address], MRI or extrathyroidal US, further evaluation with dedicated thyroid US is recommended for patients with normal life expectancy and without comorbidities. For smaller nodules without suspicious features, no further evaluation or follow up is recommended.
--- NOTE | 2024-01-18 16:45 | HMH.EDGENADL ---
Discharge Plan Disposition Patient Disposition: Home, Self-Care Condition: Good Prescriptions Prescriptions: New fluconazole 100 mg tablet 100 mg PO BID 14 Days Qty: 28 0RF No Action levofloxacin 750 mg tablet 750 mg PO DAILY 5 Days Qty: 5 0RF cephalexin 500 mg capsule 500 mg PO QID 10 Days Qty: 40 0RF clotrimazole 10 mg Karen 10 mg MUCOUS MEMBRANE 5XDAY levetiracetam 500 mg tablet 500 mg PO DAILY Patient Comments: TAKE 1 TABLET BY MOUTH IN THE MORNING AND 2 TABLETS IN THE EVENING diazepam 10 mg tablet 10 mg PO BID PRN (Reason: Seizures) Patient Comments: TAKE 1 TABLET BY MOUTH TWICE DAILY NEEDED FOR ACUTE SEIZURES levetiracetam 500 mg tablet 1,000 mg PO HS phenytoin sodium extended 100 mg capsule 300 mg PO HS Patient Comments: TAKE 2 CAPSULES BY MOUTH IN THE MORNING AND 3 CAPSULES IN THE EVENING phenytoin sodium extended 100 mg capsule 200 mg PO DAILY Patient Comments: TAKE 2 CAPSULES BY MOUTH IN THE MORNING AND 3 CAPSULES IN THE EVENING pantoprazole [Protonix] 40 mg tablet,delayed release (DR/EC) 40 mg PO BID Qty: 30 0RF Referrals Follow up/Referrals: Rowena Bourne [Primary Care Provider] - See instructions Activity Restrictions/Add. Instructions Additional Instructions/Restrictions: You were evaluated in the emergency department today. Please pick pulling machine tender your prescription and take for thrush. Be sure to take your seizure medications at home. Do not skip doses. Follow-up closely with your primary care provider and your neurologist. Return to the emergency department for any new or worsening symptoms. Keep your wound clean and dry. Do not submerge in any water. Allow the glue to fall off on its own. Clinical Impressions Clinical Impression: Breakthrough seizure, Thrush, Laceration of face, Thyroid mass, Abnormal CT of the head Instructions Patient Instructions: DI for Seizure Disorder -- Adult, DI for Laceration Repair, DI for Thrush Discharge ED Provider: Adrianna Mitchell General Adult HPI General Chief complaint: Seizure Stated complaint: fall Time Seen by Provider: 01/18/24 16:22 Mode of Arrival: EMS Source of Information: Patient and EMS Limitations: No Limitations Description of Symptoms (Recalled from ER Triage Doc. by RN): EMS states they were called for a fall. Upon arrival to the home the patient was laying in the floor with blood coming from a cut beside his left eye and complaining of tongue pain. Patient has a history of seizures and EMS states they feel like he had a seizure. Patient states he does not know what happened. History of Present Illness HPI narrative: This patient is a 63-year-old male with history of seizure disorder managed on Keppra and phenytoin presenting to the emergency department for evaluation with concern for seizure. Patient reports that he has oral thrush, for which she is on nystatin, and he also has a history of Jo Ann esophagitis. He notes that because of his dysphagia as a result of this, he has not been taking his medication. He has not taken his seizure medication in 2 days. Today, he had a witnessed generalized tonic-clonic seizure, at which point he fell to the ground. He notes that he was feeling okay prior to that aside from the thrush. He suffered a laceration to his left eyebrow as a result of the fall and seizure and he also bit his tongue. He denies any other concerns or complaints. Related Data Home Medications Medication Instructions Recorded Confirmed clotrimazole 10 mg karen 10 mg mucous membrane 5XDAY 09/16/23 09/17/23 diazepam 10 mg tablet 10 mg PO BID PRN Seizures 09/16/23 09/17/23 levetiracetam 500 mg tablet 1,000 mg PO HS 09/16/23 09/17/23 levetiracetam 500 mg tablet 500 mg PO DAILY 09/16/23 09/17/23 phenytoin sodium extended 100 mg 200 mg PO DAILY 09/16/23 09/17/23 capsule phenytoin sodium extended 100 mg 300 mg PO HS 09/16/23 09/17/23 capsule Previous Rx's Medication Instructions Recorded levofloxacin 750 mg tablet 750 mg PO DAILY 5 days #5 tabs 09/16/23 pantoprazole 40 mg tablet,delayed 40 mg PO BID #30 tabs 09/19/23 release (Protonix) cephalexin 500 mg capsule 500 mg PO QID 10 days #40 caps 12/19/23 fluconazole 100 mg tablet 100 mg PO BID 14 days #28 tabs 01/18/24 Allergies Allergy/AdvReac Type Severity Reaction Status Date / Time phenobarbital Allergy Verified 09/16/23 11:06 [facility] Disclaimer: The information contained in this section may have been updated after the patient was seen, as this information can be updated by other users. Medical History Erosive esophagitis Seizure disorder Elevated liver enzymes Acute upper gastrointestinal bleeding Left thyroid nodule Neutropenia Breakthrough seizure Jo Ann esophagitis Transaminitis Tongue ulcer Candidiasis of mouth Pneumonia Surgical History History of surgery on lower extremity History of surgery of head Social History Smoking Status: Current every day smoker tobacco type: cigarettes packs per day: 1 alcohol intake: never substance use type: denies use current occupational status: other Travel in the last 8 weeks: None ROS Obtained: Yes All systems reviewed & no additional complaints except as documented Physical Exam General General appearance: alert and in no apparent distress Head Head exam: normocephalic and other (Superficial curvilinear laceration to the left eyebrow without significant swelling or bony tenderness) Eye Eye exam: Present normal appearance, PERRL and EOMI ENT ENT exam: Present mucous membranes dry, normal external ear exam and other (Bite to the lateral aspect of the tongue. Oral thrush.) Neck Neck exam: Present normal inspection, full ROM and trachea midline; Absent tenderness Chest Chest inspection: Present normal inspection and symmetric chest wall rise; Absent tenderness Respiratory Respiratory exam: Present normal lung sounds bilaterally; Absent respiratory distress, wheezes, stridor or accessory muscle use Cardiovascular Cardiovascular exam: Present regular rate and normal rhythm Abdominal Exam Abdominal exam: Present soft; Absent distention, tenderness or guarding Extremities Exam Extremities exam: Present normal inspection, full ROM and normal capillary refill; Absent tenderness or edema Back Exam Back exam: Present normal inspection and full ROM; Absent tenderness Neurological Exam Neurological exam: Present alert, oriented X3, CN II-XII intact and normal gait; Absent motor sensory deficit Psychiatric Psychiatric exam: Present normal affect and normal mood Skin Skin exam: Present warm and dry Medical Decision Making Medical Records Medical records reviewed: Yes I reviewed the patient's medical records. Elmer Inquiry Pt receiving controlled substance: No Vital Signs: 01/18/24 16:16 01/18/24 17:00 01/18/24 19:03 Temperature 97.8 F 97.8 F Temperature Source Oral Pulse Rate 102 H 96 H Pulse Rate [Radial] 103 H Respiratory Rate 18 16 Blood Pressure 134/88 154/92 H Blood Pressure [Right Arm] 150/98 H Blood Pressure Mean 95 Blood Pressure Mean [Right Arm] 115 Blood Pressure Source [Right Arm] Automatic Cuff Blood Pressure Position [Right Arm] Sitting 02 Sat by Pulse Oximetry 95 96 Oxygen Delivery Method Room Air Room Air Lab Data Lab results reviewed: Yes I reviewed the patient's lab results. Lab Results 01/18/24 16:44: WBC 8.7, RBC 4.56 L, Hgb 14.1, Hct 41.6 L, MCV 91.4, MCH 30.9, MCHC 33.8, RDW 15.9, Plt Count 261, MPV 7.8, Neut % (Auto) 26.6 L, Lymph % (Auto) 61.6 H, Faulkner % (Auto) 9.7 H, Eos % (Auto) 0.4, Baso % (Auto) 1.5, Neut # (Auto) 2.3, Lymph # (Auto) 5.3 H, Faulkner # (Auto) 0.8, Eos # (Auto) 0.0, Baso # (Auto) 0.1, Total Counted 100, Neutrophils % (Manual) 31 L, Lymphocytes % (Manual) 62 H, Monocytes % (Manual) 7, Platelet Estimate Normal, Hypochromasia 2+, Sodium 137, Potassium 3.5, Chloride 105, Carbon Dioxide 25, Anion Gap 10.5, BUN 12, Creatinine 0.60 L, Estimated Creat Clear 91, Estimated GFR 136, Est GFR ( Amer) 165, Glucose 151 H, Calcium 8.8, Total Bilirubin 0.5, AST 36, ALT 29, Alkaline Phosphatase 182 H, Total Protein 7.7, Albumin 3.5, Globulin 4.2 H, Albumin/Globulin Ratio 0.8 L 01/18/24 16:44 01/18/24 16:44 Orders (Tests/Meds): ED MEDICATIONS Discontinued Medications Generic Name Dose Route Start Last Admin Trade Name Freq PRN Reason Stop Dose Admin Fluconazole 200 mg 01/18/24 18:06 01/18/24 18:28 Fluconazole 100mg Tablet PO 01/18/24 18:07 200 mg ONCE ONE Administration Phenytoin Sodium 1,705 mg/ 134.1 mls @ 300 mls/hr 01/18/24 16:42 01/18/24 16:55 Sodium Chloride IV 01/18/24 17:08 Not Given ONCE ONE Levetiracetam 2,000 mg/ Sodium 120 mls @ 240 mls/hr 01/18/24 16:44 01/18/24 17:09 Chloride IV 01/18/24 16:45 240 mls/hr ONCE ONE Administration Lactated Ringer's 1,000 mls @ 999 mls/hr 01/18/24 16:45 01/18/24 17:48 Lactated Ringer's 1000 Ml Bag IV 01/18/24 17:45 999 mls/hr .Q1H1M ONE Administration Tetanus/Reduced Diphtheria/Acell Pertussis 0.5 ml 01/18/24 16:42 01/18/24 17:47 Tet/Diphth/Pert-Adult 0.5ml Syringe IM 01/18/24 16:43 0.5 ml .ONCE ONE Administration Tetracycl/Hydrocort/Nystatin/Diphen 15 ml 01/18/24 16:41 01/18/24 17:47 Magic Mouthwash 300ml Bottle PO 01/18/24 16:42 15 ml ONCE ONE Administration ORDERS Category Date Time Status CT cervical spine wo con Stat Cat Scan 01/18/24 16:[address] head/brain wo con Stat Cat Scan 01/18/24 16:41 Completed Complete Blood Count Auto Diff Stat Lab 01/18/24 16:44 Completed Comprehensive Metabolic Panel Stat Lab 01/18/24 16:44 Completed ECG Data Tracing #1: I reviewed this ECG and interpreted as documented below: Normal sinus rhythm with a ventricular rate of [address] changes concerning for ischemia. Incomplete right bundle branch block. ECG initial impression date: 01/18/24 ECG initial impression time: 16:54 Medical Decision Narrative: In summary, this patient is a 63-year-old male presenting to the Emergency Department for evaluation of seizure in the setting of medication noncompliance, which she states is secondary to thrush. Differential diagnoses considered include but are not limited to breakthrough seizure, medication noncompliance, electrolyte derangements, oral thrush, Jo Ann esophagitis, head injury. Ruling out the most morbid conditions drove assessment. On exam, patient is alert and neurologically intact with a small laceration to his left eyebrow and a bite to his tongue. Workup included CBC, CMP, CT head without contrast, and CT C-spine without contrast. Patient was given a bolus of IV fluids as well as IV loading dose of Keppra. He was also given Tdap booster given his laceration. I independently interpreted CT scan prior to the radiologist read and noted no acute hemorrhage. Please see their read for final interpretation. They did note unusual appearance consistent with possible old ischemia. He was also found to have an incidental thyroid nodule, which she was notified of and I advised outpatient follow-up. Labs were obtained that demonstrated no acutely concerning abnormalities.. On multiple subsequent reassessments, the patient is at his baseline and has had no recurrence of seizure activity. He was loaded with Keppra, which he tolerated well. He was able to take his home dose of phenytoin. I gave him Magic mouthwash, which did improve his oropharyngeal pain. I do feel that he would benefit from prolonged treatment given history of esophageal candidiasis, and I feel he would benefit from close outpatient follow-up for this to determine the etiology. I gave him a 200 mg dose of fluconazole here and prescribed him 100 mg daily for 2 weeks. Advised that it is very important that he comply with his seizure medications. His laceration was repaired with Dermabond after irrigation, which he tolerated well. At this time, patient feels comfortable going home. Given reassuring workup and exam, I feel discharge is appropriate. He was given instructions for close outpatient follow-up and strict return precautions Procedures Risk/Benefits of Procedure(s) Were Explained: Yes Laceration Laceration 1: Site: face Side (If applicable): left Size (cm): 0.5 Description: linear Depth: simple, single layer Pre-repair: wound explored and irrigated extensively Skin layer closed with: Dermabond Critical Care Critical Care Time Critical Care Time: No
--- NOTE | 2024-01-18 16:50 | ECG_ITS ---
APPROVED REPORT Exam: Resting ECG HR:98 bpm ECG Measurements Heart Rate 98 AXES MT 163 P 79 QRSd 96 QRS 37 QT 333 T 44 QTc 388 Conclusion SINUS RHYTHM INCOMPLETE RIGHT BUNDLE BRANCH BLOCK [90+ ms QRS DURATION, TERMINAL R IN V1/V2, 40+ ms S IN I/aVL/V4/V5/V6] Electronically signed by : DENISE GONZALES, 01/18/2024 23:24:46
[2024-01-18 16:51] LABS: Basophils # 0.1 K/mm3 (0-0.2); Basophils % 1.5 % (0.1-2.0); Eosinophils % 0.4 % (0.1-12.0); Hematocrit 41.6 % (42.0-52.0); Hemoglobin 14.1 g/dL (14.1-18.0); Lymphocytes # 5.3 K/mm3 (0.7-4.5); Lymphocytes % 61.6 % (10-50); Mean Corpuscular HGB Conc 33.8 g/dL (31.8-35.4); Mean Corpuscular Hemoglobin 30.9 pg (27.0-31.2); Mean Corpuscular Volume 91.4 fl (80-94); Mean Platelet Volume 7.8 fl (7.4-10.4); Monocytes # 0.8 K/mm3 (0.1-1.0); Monocytes % 9.7 % (1.7-9.3); Neutrophils # 2.3 K/mm3 (1.8-7.8); Neutrophils % 26.6 % (37.0-80.0); Platelet Count 261 K/mm3 (142-424); Red Blood Count 4.56 M/mm3 (4.60-6.20); Red Cell Distribution Width 15.9 % (11.5-17.5); White Blood Count 8.7 K/mm3 (4.8-10.8)
[2024-01-18 16:54] LABS: Chloride 105 mmol/L (98-107)
[2024-01-18 16:55] LABS: MANUAL DIFFERENTIAL MANUAL DIFFERENTIAL (MANUAL DIFF); Potassium 3.5 mmoL/L (3.5-5.1); Sodium 137 mmol/L (136-145)
[2024-01-18 16:57] LABS: Alanine Aminotransferase 29 U/L (12-78); Aspartate Amino Transferase 36 U/L (17-59); Blood Urea Nitrogen 12 mg/dl (9-20); Creatinine Clearance Estimated 91 mL/min (50-200); Estimated Glomerular Filt Rate 136 ml/min (>60); GFR (African American) 165 ML/MIN (>60)
[2024-01-18 16:58] LABS: Albumin Level 3.5 g/dl (3.5-5.0); Albumin/Globulin Ratio 0.8 (1.1-1.8); Alkaline Phosphatase 182 U/L (38-126); Anion Gap 10.5 mEq/L (5-15); Bilirubin,Total 0.5 mg/dl (0.2-1.3); Calcium 8.8 mg/dl (8.4-10.2); Carbon Dioxide 25 mmol/L (22.0-30.0); Globulin 4.2 g/dL (1.3-3.2); Glucose 151 mg/dl (74-100); Total Protein,Serum 7.7 g/dl (6.3-8.2)
[2024-01-18 17:00] VITALS: BP 134/88; PULSE 102; O2SAT 96
[2024-01-18] MEDS: levETIRAcetam 2,000 MG in 0.9 % SODIUM CHLORIDE 100 ML 240 MG IV (17:09)
[2024-01-18 17:12] LABS: Hypochromasia 2+; Lymphocytes % 62 % (10-50); Monocytes % 7 % (2-9); Neutrophils % 31 % (42-76); Platelet Estimate Normal; Total Cells Counted 100
[2024-01-18] MEDS: TET/DIPHTH/PERT-ADULT 0.5ML SYRINGE 0.5 ML IM (17:47)
[2024-01-18] MEDS: MAGIC MOUTHWASH 300ML BOTTLE 15 ML PO (17:47)
[2024-01-18] MEDS: LACTATED RINGERS 1000ML 1,000 ML 999 ML IV (17:48)
[2024-01-18] MEDS: FLUCONAZOLE 100MG TABLET 200 MG PO (18:28)
[2024-01-18 19:03] VITALS: BP 154/92; PULSE 96; RESP 16; TEMP 36.6
== END 2024-01-18 19:05 | disposition home or self-care (01) ==
PROVIDERS: Emergency Provider Emergency Medicine; PCP Family Medicine
DX: G40.909 Epilepsy, unspecified, not intractable, without status epilepticus (principal); S01.81XA Laceration without foreign body of other part of head, initial encounter; B37.0 Candidal stomatitis; E07.9 Disorder of thyroid, unspecified; F17.210 Nicotine dependence, cigarettes, uncomplicated; W19.XXXA Unspecified fall, initial encounter; Z23 Encounter for immunization
CPT/HCPCS: 12011; 70450; 72125; 80053; 85007; 85025; 90471; 90715; 93005; 96365; 96375; 99285; J1953

== ENCOUNTER 2024-12-10 08:20 | Inpatient (IN) | payer MEDICARE, MEDICAID, SELFPAY ==
[2024-12-10] VITALS (27 sets, daily range): BP systolic 90–127; BP diastolic 56–79; PULSE 42–134; RESP 22–43; TEMP 37.1–38; O2SAT 87–95; BMI 25.2; BMI 24.4
--- NOTE | 2024-12-10 08:11 | CT_ITS ---
FINAL REPORT TECHNIQUE: Axial imaging of the chest is obtained after the administration of contrast. 3-D MIP reformatted images were also obtained and reviewed per PE protocol. This study was performed with techniques to keep radiation doses as low as reasonably achievable, (ALARA). Individualized dose reduction techniques using automated exposure control or adjustment of mA and/or kV according to the patient's size were employed. CLINICAL HISTORY: resp failure, tachy COMPARISON: 09/17/2023 FINDINGS: The pulmonary arteries are well filled. There is no evidence of pulmonary embolus. There is no aortic dissection. Heart size is normal. The left lobe of the thyroid is enlarged, similar to prior. There is no axillary or mediastinal lymphadenopathy. There are mildly enlarged left hilar and subcarinal lymph nodes. Trace bilateral pleural effusions are identified. There is no pericardial effusion. There are new, groundglass and nodular opacities in the lingula and right middle lobe. There is more focal consolidation in the left greater than right lower lobes, favor bilateral pneumonia. Interlobular septal thickening is seen bilaterally, superimposed pulmonary edema is not excluded. No acute osseous abnormality. IMPRESSION: No evidence of pulmonary embolism or aortic dissection. Bilateral pneumonia, left greater than right. Consider 3-month follow-up CT to ensure resolution. Interlobular septal thickening bilaterally, superimposed pulmonary edema is not excluded. Reviewed, Interpreted and Dictated by Nora Marcial MD Transcribed by Gracy Cedillo Authenticated and . [facility]
--- NOTE | 2024-12-10 08:11 | CT_ITS ---
FINAL REPORT TECHNIQUE: Thin section axial images were obtained from skull base to vertex without contrast. Coronal reconstruction images were obtained from the axial data. Exam was performed using dose reduction techniques such as automated exposure control, adjustment of the mA and kV according to patient size, and use of iterative reconstruction technique. CLINICAL HISTORY: seizures x 3, h/o seizure but inc. freq COMPARISON: 01/18/2024 FINDINGS: There is atrophy. No mass effect or midline shift. No intracranial hemorrhage. No hydrocephalus. Periventricular low density is likely related to changes of chronic small vessel ischemia. The basilar cisterns are preserved. The posterior fossa is without acute abnormality. The soft tissues are without acute abnormality. No acute osseous abnormality is identified. IMPRESSION: No acute intracranial abnormality. Atrophy and changes suggesting chronic small vessel ischemia. Reviewed, Interpreted and Dictated by Nora Marcial MD Transcribed by Gracy Cedillo Authenticated and [facility]
--- NOTE | 2024-12-10 08:11 | CT_ITS ---
FINAL REPORT TECHNIQUE: Thin section axial images were obtained through the abdomen after intravenous contrast. Reconstruction images were obtained from the axial data. Exam was performed using dose reduction techniques. CLINICAL HISTORY: gen abd pain/n/v COMPARISON: 09/17/2023 FINDINGS: The liver is homogeneous. The gallbladder is present. The spleen, left adrenal gland, and pancreas are unremarkable. There is a small right adrenal nodule which contains fat and calcification. Finding is stable since prior consistent with myelolipoma. There is no hydronephrosis or solid renal mass. There is a small hiatal hernia. No small bowel obstruction identified. There is no abdominal lymphadenopathy or ascites. The pelvic solid organs are unremarkable. The pelvic portions of the GI tract, including the appendix, are without acute abnormality. The prostate is normal in size. There is abnormal attenuation in the root of the mesentery, unchanged from prior and nonspecific. There is no lymphadenopathy or ascites. No acute osseous abnormalities identified. IMPRESSION: No CT evidence of acute intra-abdominal or intrapelvic abnormality. Chronic findings as detailed above. Reviewed, Interpreted and Dictated by Nora Marcial MD Transcribed by Gracy Cedillo Authenticated and [facility]
--- NOTE | 2024-12-10 08:11 | ECG_ITS ---
APPROVED REPORT Exam: Resting ECG HR:133 bpm ECG Measurements Heart Rate 133 AXES ND 168 P 66 QRSd 93 QRS 78 QT 308 T 39 QTc 386 Conclusion SINUS TACHYCARDIA ABNORMAL ECG No STEMI Electronically signed by : DENISE GONZALES, 12/10/2024 10:09:58
[2024-12-10 08:12] LABS: Coronavirus 19, PCR Not Detected (NotDetected); Influenza A, PCR Not Detected (NotDetected); Influenza B, PCR Not Detected (NotDetected)
[2024-12-10] MEDS: LACTATED RINGERS 1000ML 1,000 ML 999 ML IV ×2 (08:18→10:40)
[2024-12-10] MEDS: ONDANSETRON 4MG/2ML VIAL 4 MG IV (08:18)
--- NOTE | 2024-12-10 08:19 | HMH.EDGENADL ---
Discharge Plan Disposition Patient Disposition: Admitted Condition: Fair Clinical Impressions Clinical Impression: Breakthrough seizure, Hypomagnesemia, Hypophosphatemia, Acute pain of left shoulder, Other calcification of muscle, left upper arm, Cerebrovascular small vessel disease, Aspiration into airway, Sepsis due to pneumonia, Elevated troponin Discharge ED Provider: Adrianna Mitchell General Adult HPI General Chief complaint: Seizure Stated complaint: Seizure Time Seen by Provider: 12/10/24 08:20 History of Present Illness HPI narrative: This patient is a 64-year-old male with a history of seizure disorder presenting to the emergency department for evaluation with concern for seizures. According to EMS, they were called to the patient's home 3 times in the last 24 hours for seizure activity. According to significant other who called to provide history, patient had first seizure last night around 7 PM and has had 2 since then. Patient is alert and oriented x 4 without focal deficit at this time. He states that he has been sick for 3 to 4 months and has not been feeling well overall. He notes has been having a lot of problems with his left leg, left shoulder, as well as problems with his belly. He states that he has abdominal pain all over. He also notes pain in his left lower leg, worse with weightbearing and walking. He denies any known injury but states that he did have a remote injury a very long time ago. He also has pain in his left shoulder making it difficult to move his arm in certain ways. He reports compliance with all of his home medications, including Keppra and phenytoin. His last seizure was about 6 months ago. EMS notes that the patient was initially postictal and covered in vomit. They noted that they were concerned he aspirated, as he had a lot of vomiting as mouth, had abnormal lung sounds, and low oxygen. They also noted fever. Related Data Home Medications ?Medication ?Instructions ?Recorded ?Confirmed diazepam 10 mg tablet 10 mg PO BIDP PRN Seizures 09/16/23 12/10/24 levetiracetam 500 mg tablet 1,000 mg PO HS 09/16/23 12/10/24 levetiracetam 500 mg tablet 500 mg PO DAILY 09/16/23 12/10/24 phenytoin sodium extended 100 mg 200 mg PO DAILY 09/16/23 12/10/24 capsule phenytoin sodium extended 100 mg 300 mg PO HS 09/16/23 12/10/24 capsule Previous Rx's ?Medication ?Instructions ?Recorded pantoprazole 40 mg tablet,delayed 40 mg PO BID #30 tabs 09/19/23 release (Protonix) Allergies Allergy/AdvReac Type Severity Reaction Status Date / Time phenobarbital Allergy Verified 09/16/23 11:06 [facility] Disclaimer: The information contained in this section may have been updated after the patient was seen, as this information can be updated by other users. Medical History Erosive esophagitis Seizure disorder Elevated liver enzymes Acute upper gastrointestinal bleeding Left thyroid nodule Neutropenia Breakthrough seizure [place] esophagitis Transaminitis Tongue ulcer Candidiasis of mouth Pneumonia Surgical History History of surgery on lower extremity History of surgery of head Social History Smoking Status: Current every day smoker tobacco type: cigarettes packs per day: 1 alcohol intake: never substance use type: denies use current occupational status: other Travel in the last 8 weeks: None Have you lived/traveled outside [place] in past 30 days?: No Contact w/someone who lives/traveled outside US past 30 days?: No Exposure to someone with infectious disease in past 14 days?: No Do you have a fever (greater than 100.4 F or 38 C)?: No Have you tested positive for COVID-19: No Exposed to someone with COVID-19 in past 14 days?: No Do you have a sore throat?: No Do you have a cough?: No Do you have any weakness?: No Do you have any diarrhea?: No Are you experiencing any unusual bleeding?: No Do you have any muscle aches/pain?: No Do you have any abdominal pain?: No Are you experiencing loss of taste or smell?: No Other Medical History Have you received the Flu Vaccine for this season: No Have you received the Pneumonia Vaccine: No ROS Obtained: Yes All systems reviewed & no additional complaints except as documented Physical Exam General General appearance: alert and in no apparent distress Head Head exam: atraumatic and normocephalic Eye Eye exam: Present normal appearance, PERRL and EOMI ENT ENT exam: Present normal exam, normal oropharynx, mucous membranes moist and normal external ear exam Neck Neck exam: Present normal inspection, full ROM and trachea midline; Absent tenderness Chest Chest inspection: Present normal inspection and symmetric chest wall rise; Absent tenderness Respiratory Respiratory exam: Present other (Rhonchi noted); Absent respiratory distress, wheezes, stridor or accessory muscle use Cardiovascular Cardiovascular exam: Present normal rhythm and tachycardia Abdominal Exam Abdominal exam: Present distention (Mild) and tenderness (Generalized); Absent guarding, rebound or rigidity Extremities Exam Extremities exam: Present full ROM, tenderness (L shoulder, L ankle), normal capillary refill and other (All compartment soft, neurovascularly intact distally); Absent edema Back Exam Back exam: Present normal inspection and full ROM; Absent tenderness Neurological Exam Neurological exam: Present alert, oriented X3 and CN II-XII intact; Absent motor sensory deficit Psychiatric Psychiatric exam: Present normal affect and normal mood Skin Skin exam: Present warm and dry Medical Decision Making Medical Records Medical records reviewed: Yes I reviewed the patient's medical records. Screening: Per USPSTF and CDC recommendations, given the prevalence of disease in our region, it is our hospital?s policy to screen for HIV and viral Hepatitis for all patients aged 18 and over and those with ongoing risk factors. [place] Inquiry Pt receiving controlled substance: No Vital Signs: 12/10/24 08:20 12/10/24 08:30 12/10/24 09:26 Temperature 99.9 F H Temperature Source Oral Pulse Rate 124 H 121 H Pulse Rate [Right] 134 H Respiratory Rate 36 H 29 H 35 H Blood Pressure 122/75 109/68 L Blood Pressure [Right Arm] 127/79 Blood Pressure Mean [Right Arm] 95 Blood Pressure Source [Right Arm] Automatic Cuff 02 Sat by Pulse Oximetry 87 L 92 L 90 L Oxygen Delivery Method Room Air Nasal Cannula Nasal Cannula Oxygen Flow Rate (LPM) 3 3 12/10/24 09:30 12/10/24 10:00 12/10/24 10:30 Temperature Temperature Source Pulse Rate 117 H 113 H 114 H Pulse Rate [Right] Respiratory Rate 43 H 33 H 28 H Blood Pressure 108/70 L 100/59 L 99/64 L Blood Pressure [Right Arm] Blood Pressure Mean [Right Arm] Blood Pressure Source [Right Arm] 02 Sat by Pulse Oximetry 90 L 90 L 90 L Oxygen Delivery Method Nasal Cannula Nasal Cannula Nasal Cannula Oxygen Flow Rate (LPM) 3 3 3 Lab Data Lab results reviewed: Yes I reviewed the patient's lab results. Lab Results 12/10/24 08:07: VBG pH 7.44 H, VBG pCO2 30.9 L, VBG pO2 42.6 H, VBG HCO3 20.7 L, VBG Total CO2 21.7 L, VBG O2 Saturation 81.9 H, VBG Base Excess -3.4 L, VBG Lactic Acid 3.4 H 12/10/24 08:09: SARS-CoV-2 (PCR) Not detected, Influenza A Untype (PCR) Not detected, Influenza Type B (PCR) Not detected 12/10/24 08:20: WBC 10.7, RBC 4.84, Hgb 14.6, Hct 42.2, MCV 87.2, MCH 30.2, MCHC 34.6, RDW 15.9, Plt Count 215, MPV 10.4, Neut % (Auto) 45.5, Lymph % (Auto) 46.1, [place] % (Auto) 7.5, Eos % (Auto) 0.4, Baso % (Auto) 0.3, Neut # (Auto) 4.9, Lymph # (Auto) 4.[address] H, [place] # (Auto) 0.8, Eos # (Auto) 0.0, Baso # (Auto) 0.0, PT 10.4, INR 0.94, Sodium 135 L, Potassium 3.7, Chloride 105, Carbon Dioxide 21 L, Anion Gap 12.7, BUN 9, Creatinine 0.60 L, Estimated GFR 136, Est GFR ( Amer) 164, Glucose 137 H, Calcium 8.1 L, Phosphorus 1.8 L, Magnesium 1.3 L, Total Bilirubin 0.9, AST 49, ALT 30, Alkaline Phosphatase 284 H, Total Creatine Kinase 127, Troponin I 4.33 H, NT-Pro-B Natriuret Pep 2010 H, Total Protein 7.6, Albumin 3.5, Globulin 4.1 H, Albumin/Globulin Ratio 0.9 L, Lipase 80, TSH 1.34, Thyroxine (T4) 7.9, Urine Color Cancelled, Urine Appearance Cancelled, Urine pH Cancelled, Ur Specific [place] Cancelled, Urine Protein Cancelled, Urine Glucose (UA) Cancelled, Urine Ketones Cancelled, Urine Blood Cancelled, Urine Nitrate Cancelled, Urine Bilirubin Cancelled, Urine Urobilinogen Cancelled, Ur Leukocyte Esterase Cancelled, Urine RBC Cancelled, Urine WBC Cancelled, Ur Squamous Epith Cells Cancelled, Ur Transition Epith Cell Cancelled, Ur Renal Epithelial Cell Cancelled, Calcium Carbonate Cryst Cancelled, Calcium Phosphate Cryst Cancelled, Calcium Oxalate Crystal Cancelled, Cystine Crystals Cancelled, Uric Acid Crystals Cancelled, Triple Phos Crystals Cancelled, Tyrosine Crystals Cancelled, Other Crystals Cancelled, Amorphous Sediment Cancelled, Other Sediment Cancelled, Urine Bacteria Cancelled, Fatty Casts Cancelled, Hyaline Casts Cancelled, Fine Granular Casts Cancelled, Coarse Granular Casts Cancelled, Waxy Casts Cancelled, RBC Casts Cancelled, WBC Casts Cancelled, Other Casts Cancelled, Urine Mucus Cancelled, Urine Trichomonas Cancelled, Urine Yeast Cancelled, Urine Sperm Cancelled, Phenytoin 14.1, HCV Ab SHERRI w/Rflx PCR Qn Negative, HIV Ag/Ab Combo Qual Negative 12/10/24 08:20 12/10/24 08:20 Orders (Tests/Meds): ED MEDICATIONS Generic Name Dose Route Start Last Admin Trade Name Freq PRN Reason Stop Dose Admin Acetaminophen 650 mg 12/10/24 10:58 Acetaminophen 325mg Tab PO 01/09/25 10:57 Q4HP PRN Fever or Mild Pain (1-3) Diazepam 10 mg 12/10/24 11:13 Diazepam 5mg Tablet PO 01/09/25 11:12 BIDP PRN Seizures Lactated Ringer's 1,000 mls @ 999 mls/hr 12/10/24 10:23 12/10/24 10:40 Lactated Ringer's 1000 Ml Bag IV 12/10/24 11:23 999 mls/hr .Q1H1M ONE Administration Magnesium Sulfate 2 gm in 50 mls @ 50 mls/hr 12/10/24 10:23 12/10/24 10:41 Magnesium Sulfate 2gm/50ml Premix IV 12/10/24 11:22 50 mls/hr ONCE ONE Administration Potassium Phosphate 15 mmol in 250 mls @ 62.5 mls/hr 12/10/24 10:23 Potassium Phosphate 15mm/250ml Ns Premix IV 12/10/24 14:22 ONCE ONE Vancomycin/PEG/NADA/Lysine/Water 1.75 gm in 350 mls @ 175 mls/hr 12/10/24 10:45 Vancomycin 1.75gm/350ml (Peg) Premix IV 12/10/24 12:44 ONCE ONE Levetiracetam 1,000 mg 12/10/24 21:00 Levetiracetam 500 Mg Tablet PO 01/09/25 20:59 BID DELMY Pantoprazole Sodium 40 mg 12/10/24 21:00 Pantoprazole 40mg Tablet PO 01/09/25 20:59 HS DELMY Phenytoin Sodium 300 mg 12/10/24 21:00 Phenytoin 100mg Capsule PO 01/09/25 20:59 HS DELMY Phenytoin Sodium 200 mg 12/11/24 09:00 Phenytoin 100mg Capsule PO 01/10/25 08:59 DAILY DELMY Discontinued Medications Generic Name Dose Route Start Last Admin Trade Name Freq PRN Reason Stop Dose Admin Acetaminophen 1,000 mg 12/10/24 08:22 12/10/24 09:07 Acetaminophen 1,000mg/100ml Vial IV 12/10/24 08:23 1,000 mg ONCE ONE Administration Lactated Ringer's 1,000 mls @ 999 mls/hr 12/10/24 08:11 12/10/24 08:18 Lactated Ringer's 1000 Ml Bag IV 12/10/24 09:11 999 mls/hr .Q1H1M ONE Administration Levetiracetam 4,000 mg/ Sodium 140 mls @ 280 mls/hr 12/10/24 08:12 12/10/24 08:38 Chloride IV 12/10/24 08:13 280 mls/hr ONCE ONE Administration Piperacillin Sod/Tazobactam 50 mls @ 100 mls/hr 12/10/24 10:30 12/10/24 10:41 Sod 3.375 gm/ Sodium Chloride IV 12/10/24 10:59 100 mls/hr ONCE ONE Administration Iopamidol 160 ml 12/10/24 09:04 12/10/24 09:06 Iopamidol-370 (76%);100ml Bottle IV 12/10/24 09:05 160 ml ONCE ONE Administration Miscellaneous 1 each 12/10/24 10:30 12/10/24 10:43 Vancomycin Consult Request NOTAPPLIC 01/09/25 10:29 1 each CONS[facility]Y [facility] Administration Ondansetron HCl 4 mg 12/10/24 08:11 12/10/24 08:18 Ondansetron 4mg/2ml Vial IV 12/10/24 08:12 4 mg ONCE ONE Administration Potassium Phosphate 250 mg 12/10/24 10:24 K-Phos Neutral 250mg Tablet PO 12/10/24 10:25 ONCE ONE Sodium Chloride 50 ml 12/10/24 09:04 12/10/24 09:06 0.9 % Sodium Chloride 50 Ml Vial IV 12/10/24 09:05 50 ml ONCE ONE Administration Sodium Chloride 10 ml 12/10/24 09:04 12/10/24 09:06 Sodium Chloride 0.9% 10ml Syr (Rad Only) IV 01/09/25 09:03 10 ml NEEDED PRN Administration Maintain IV Site ORDERS Category Date Time Status CT abdomen pelvis w con Stat Cat Scan 12/10/24 08:[address] angio chest PE protocol Stat Cat Scan 12/10/24 08:[address] angio head Stat Cat Scan 12/10/24 08:[address] angio neck Stat Cat Scan 12/10/24 08:[address] head/brain wo con Stat Cat Scan 12/10/24 08:11 Completed Cardiology Consult [Consult to Cardiology] [CONS] Cons 12/10/24 10:46 Active Routine Foot XR left minimum 3 views [XR foot LT min 3V] Stat Exams 12/10/24 08:46 Completed Humerus XR left [XR humerus LT] Stat Exams 12/10/24 08:46 Completed Shoulder XR left minimum 2 views [XR shoulder LT min 2V Exams 12/10/24 08:46 Completed ] Stat Tibia/fibula XR left 2 views [XR tibia fibula LT 2V] Exams 12/10/24 08:46 Completed Stat XR ankle LT min 3V Stat Exams 12/10/24 08:46 Completed BMP [Basic Metabolic Panel] Routine Lab 12/10/24 16:00 Ordered BNP [NT Pro Brain Natriuretic Pep.] Stat Lab 12/10/24 08:20 Completed CK [Creatine Kinase] Stat Lab 12/10/24 08:20 Completed Complete Blood Count Auto Diff AMLAB Lab 12/11/24 06:00 Ordered Complete Blood Count Auto Diff Stat Lab 12/10/24 08:20 Completed Comprehensive Metabolic Panel AMLAB Lab 12/11/24 06:00 Ordered Comprehensive Metabolic Panel Stat Lab 12/10/24 08:20 Completed Drug Screen,Urine Stat Lab 12/10/24 09:01 Ordered HIV Combo Stat Lab 12/10/24 08:20 Completed Hepatitis C Ab Qual. W/ RFX Stat Lab 12/10/24 08:20 Completed Levetiracetam (Keppra) Stat Lab 12/10/24 08:20 Received Lipase Stat Lab 12/10/24 08:20 Completed MAG [Magnesium] Stat Lab 12/10/24 08:20 Completed Magnesium AMLAB Lab 12/11/24 06:00 Ordered Magnesium Routine Lab 12/10/24 16:00 Ordered PHOS [Phosphorous] Routine Lab 12/10/24 16:00 Ordered PHOS [Phosphorous] Stat Lab 12/10/24 08:20 Completed Phenytoin (Dilantin) Stat Lab 12/10/24 08:20 Completed Prothrombin Time INR Stat Lab 12/10/24 08:20 Completed Rapid PCR Covid and Flu A/B Stat Lab 12/10/24 08:09 Completed T4 (Thyroxine) Stat Lab 12/10/24 08:20 Completed TSH [Thyroid Stimulating Hormone] Stat Lab 12/10/24 08:20 Completed Trop I [Troponin I] Stat Lab 12/10/24 08:20 Completed Troponin I Q3H Lab 12/10/24 11:15 Ordered Troponin I Q3H Lab 12/10/24 14:15 Ordered Urinalysis and Microscopic Stat Lab 12/10/24 08:59 Ordered Blood Culture Stat Micro 12/10/24 08:20 Received VBG [Venous Blood Gas] Stat RT 12/10/24 08:07 Completed CA echo doppler complete Stat Y 12/10/24 10:46 Completed ECG Data Tracing #1: I reviewed this ECG and interpreted as documented below: Sinus tachycardia with a ventricular rate 133 bpm. No acute STEMI. Normal intervals ECG initial impression date: 12/10/24 ECG initial impression time: 08:12 Tracing #2: I reviewed this ECG and interpreted as documented below: Sinus tachycardia with a ventricular rate of 111 bpm. Nonspecific T wave changes without acute STEMI. Normal intervals ECG initial impression date: 12/10/24 ECG initial impression time: 10:38 Medical Decision Narrative: In summary, this patient is a 64-year-old male presenting to the Emergency Department for evaluation of seizures. He also notes issues with his left lower leg, left shoulder, and his belly over the last several months. Differential diagnoses considered include but are not limited to breakthrough seizure, intracranial mass, intracranial hemorrhage, electrolyte derangements, medication noncompliance, substance use, ankle/shoulder fracture/injury, colitis, aspiration pneumonia, among many others. Ruling out the most morbid conditions drove assessment. It should be noted patient's history includes seizure disorder which is not at goal therapy. This complicates all aspects of care by increasing patient's risk for morbidity. I reviewed patient's past medical records and noted previous evaluations for breakthrough seizures in the past. On exam, the patient is lying in bed in no acute distress. He is alert, oriented, neurologically intact without focal deficit. He has tenderness of his left shoulder, left ankle/lower leg. He is neurovascularly intact distally. He is febrile and tachycardic. he has adventitious lung sounds in the setting of recent seizure, concern for aspiration. He also has mild generalized abdominal tenderness. Workup included broad lab evaluation to evaluate for infectious, metabolic, cardiac etiologies including blood cultures. Also sent Keppra and phenytoin levels. Obtain CT scan of the head, CT angiograms of the head and neck, CTA PE protocol, and CT abdomen pelvis with IV contrast to evaluate for his new respiratory failure, ongoing abdominal pain, and also his breakthrough seizures. I also obtained x-rays of the painful extremities. He was given a bolus of IV fluids, Keppra load, IV acetaminophen. I independently interpreted CT scans and x-rays prior to the radiologist read and noted bilateral pneumonia, left greater than right. No obvious acute fracture, no intracranial hemorrhage. Please see their read for final interpretation. They do note chronic small vessel changes to the brain, calcification in the left axilla. Labs were obtained that demonstrated elevated lactic acid, respiratory alkalosis. Patient has hypomagnesemia and hypophosphatemia, for which IV repletion was ordered. Troponin was found to be significantly elevated. EKGs x 2 do not demonstrate any acute STEMI, just sinus tachycardia. He complains of no chest pain. Seizures can elevate troponin, however given significant degree of elevation, I am concerned for other acute cardiac pathology such as a ventricular dysrhythmia versus ACS. Given this, I called and discussed the case with cardiology who recommended stat echo. This was ordered. Other interventions included 2 L bolus of IV fluids for sepsis bolus. I did not give full bolus based on body weight as I feel will be detrimental in the setting of respiratory failure and cardiac dysfunction. I initiated the patient on broad-spectrum antibiotics with IV vancomycin and Zosyn. He got IV repletion of mag and phosphorus and also was loaded with Keppra. On reassessment, patient had good improvement after administration of IV fluids. His heart rate is improved from 140s to low 100s. His blood pressures are soft with systolics in the 80s to 90s, but maps are above 65. He remains tachypneic and hypoxic requiring 3 L nasal cannula to maintain an O2 saturation of around 90%. Ultimately, I feel patient is critically ill at this time with multiple electrolyte derangements, severe sepsis secondary to pneumonia, elevated troponins. I feel he is currently stable for admission. I had an interactive discussion with the hospitalist who admitted the patient for further management. Critical Care Critical Care Time Critical Care Time: Yes Attestation: On 12/10/24, the high probability of a clinically significant, sudden or life threatening deterioration of the following system(s) required my full and direct attention, intervention and personal management. The time I documented below is in addition to time spent performing reported procedures but includes the following listed in this critical care notation. Total Time Total Critical Care Time: 40
--- NOTE | 2024-12-10 08:26 | CT_ITS ---
FINAL REPORT TECHNIQUE: Thin section axial images were obtained through the neck after contrast administration per CT angiogram protocol. Multiplanar reconstruction images were obtained from the axial data. Exam was performed using dose reduction technique. CLINICAL HISTORY: L sided weakness COMPARISON: None FINDINGS: CTA NECK: Aortic arch: There is a normal three-vessel configuration to the aortic arch. There is no significant stenosis of the great vessels at their origins. Right carotid artery: The right carotid artery is patent with no evidence of plaque. There is 0% stenosis. Left carotid artery: The left carotid artery is patent with no significant plaque identified. There is 0% stenosis. Vertebral arteries: The bilateral vertebral arteries are patent without stenosis. Other soft tissues: Unremarkable. IMPRESSION: Patent arteries without evidence of stenosis. Reviewed, Interpreted and Dictated by Nora Marcial MD Transcribed by Zee Mckeon Authenticated and [facility]
--- NOTE | 2024-12-10 08:26 | CT_ITS ---
FINAL REPORT TECHNIQUE: Thin section axial images are obtained through the brain after intravenous contrast injection. Multiplanar reconstructions were obtained from the axial data. Exam was performed using dose reduction techniques such as automated exposure control, adjustment of the mA and kV according to patient size, and use of iterative reconstruction technique. CLINICAL HISTORY: L sided weakness COMPARISON: None FINDINGS: The intracerebral portions of the carotid arteries are patent. The anterior and middle cerebral arteries are patent. The posterior cerebral arteries arise from the basilar artery. They are patent. [place] is intact. The basilar artery is patent. The vertebral arteries are patent. There is no significant stenosis, aneurysm, or AVM. IMPRESSION: Unremarkable CT angiogram of the intracerebral vasculature. Reviewed, Interpreted and Dictated by Nora Marcial MD Transcribed by Zee Mckeon Authenticated and [facility]
--- NOTE | 2024-12-10 08:27 | PC.NURSE ---
blue band placed on right wrist.
[2024-12-10 08:34] LABS: VBG Base Excess -3.4 mmol/L (-2.4-2.3); VBG HCO3 20.7 mmol/L (23-30); VBG Oxygen Saturation 81.9 % (50-70); VBG PCO2 30.9 mmol/L (35-51); VBG PH 7.44 mmol/L (7.31-7.41); VBG PO2 42.6 mmol/L (28-40); VBG Total CO2 21.7 mmol/L (23-27)
[2024-12-10 08:36] LABS: Lactate Venous 3.4 mmol/L (0.4-2.0)
[2024-12-10] MEDS: levETIRAcetam 4,000 MG in 0.9 % SODIUM CHLORIDE 100 ML 280 MG IV (08:38)
--- NOTE | 2024-12-10 08:40 | PC.NURSE ---
Pt's called for an update. Update given on care as pt allowed. Her phone contact is [phone] home & [phone] cell. states she does not drive but if pt is d/c her brother might be able to pick him up later.
[2024-12-10 08:46] LABS: Albumin Level 3.5 g/dl (3.5-5.0); Chloride 105 mmol/L (98-107); Potassium 3.7 mmoL/L (3.5-5.1); Sodium 135 mmol/L (136-145)
--- NOTE | 2024-12-10 08:46 | XR_ITS ---
FINAL REPORT CLINICAL HISTORY: pain, difficulty walking FINDINGS: AP and lateral views of the left tibia and fibula were obtained. There is no prior exam for comparison. There is no acute fracture of the left tibia or fibula. The knee and ankle appear intact. The soft tissues are normal. IMPRESSION: No acute osseous abnormality of the left tibia or fibula. Reviewed, Interpreted and Dictated by Nora Marcial MD Transcribed by Gracy Cedillo Authenticated and [facility]
--- NOTE | 2024-12-10 08:46 | XR_ITS ---
FINAL REPORT CLINICAL HISTORY: pain, difficulty walking FINDINGS: AP, oblique and lateral views of the left foot were obtained. There is no acute fracture or dislocation. The bones are mildly osteopenic. The joint spaces are preserved. Soft tissues are unremarkable. IMPRESSION: No acute osseous abnormality of the left foot. Reviewed, Interpreted and Dictated by Nora Marcial MD Transcribed by Gracy Cedillo Authenticated and [facility]
--- NOTE | 2024-12-10 08:46 | XR_ITS ---
FINAL REPORT CLINICAL HISTORY: pain, limited ROM, seizures FINDINGS: Three views of the left shoulder were obtained. There is no fracture or dislocation. There is mild AC joint degenerative disease. Radiopaque density in the left axilla could be soft tissue calcification or foreign body. IMPRESSION: Mild degenerative changes. Soft tissue calcification versus foreign body in the left axilla. Reviewed, Interpreted and Dictated by Nora Marcial MD Transcribed by Gracy Cedillo Authenticated and [facility]
--- NOTE | 2024-12-10 08:46 | XR_ITS ---
FINAL REPORT CLINICAL HISTORY: pain, limited ROM, seizures FINDINGS: Two views of the left humerus were obtained. There is no acute fracture or dislocation. There is a radiopaque density in the left axilla which could be soft tissue calcification but foreign body is not excluded. IMPRESSION: Soft calcification versus foreign body in the left axilla. Reviewed, Interpreted and Dictated by Nora Marcial MD Transcribed by Gracy Cedillo Authenticated and . [facility]
--- NOTE | 2024-12-10 08:46 | XR_ITS ---
FINAL REPORT CLINICAL HISTORY: pain, difficulty walking FINDINGS: AP, oblique, and lateral views of the left ankle were obtained. There is no fracture or dislocation. The bones are osteopenic. The ankle mortise is intact. Soft tissues are unremarkable. IMPRESSION: No acute osseous abnormality of the left ankle. Reviewed, Interpreted and Dictated by Nora Marcial MD Transcribed by Gracy Cedillo Authenticated and [facility]
[2024-12-10 08:49] LABS: Alanine Aminotransferase 30 U/L (12-78); Albumin/Globulin Ratio 0.9 (1.1-1.8); Alkaline Phosphatase 284 U/L (38-126); Anion Gap 12.7 mEq/L (5-15); Aspartate Amino Transferase 49 U/L (17-59); Bilirubin,Total 0.9 mg/dl (0.2-1.3); Blood Urea Nitrogen 9 mg/dl (9-20); Carbon Dioxide 21 mmol/L (22.0-30.0); Estimated Glomerular Filt Rate 136 ml/min (>60); GFR (African American) 164 ML/MIN (>60); Globulin 4.1 g/dL (1.3-3.2); Lipase 80 U/L (23-300); Total Protein,Serum 7.6 g/dl (6.3-8.2)
[2024-12-10 08:50] LABS: Calcium 8.1 mg/dl (8.4-10.2); Glucose 137 mg/dl (74-100)
[2024-12-10 08:51] LABS: Basophils % 0.3 % (0.1-2.0); Eosinophils % 0.4 % (0.1-12.0); Hematocrit 42.2 % (42.0-52.0); Hemoglobin 14.6 g/dL (14.1-18.0); Lymphocytes # 4.9 K/mm3 (0.7-4.5); Lymphocytes % 46.1 % (10-50); Mean Corpuscular HGB Conc 34.6 g/dL (31.8-35.4); Mean Corpuscular Hemoglobin 30.2 pg (27.0-31.2); Mean Corpuscular Volume 87.2 fl (80-94); Mean Platelet Volume 10.4 fl (7.4-10.4); Monocytes # 0.8 K/mm3 (0.1-1.0); Monocytes % 7.5 % (1.7-9.3); Neutrophils # 4.9 K/mm3 (1.8-7.8); Neutrophils % 45.5 % (37.0-80.0); Platelet Count 215 K/mm3 (142-424); Red Blood Count 4.84 M/mm3 (4.60-6.20); Red Cell Distribution Width 15.9 % (11.5-17.5); White Blood Count 10.7 K/mm3 (4.8-10.8)
[2024-12-10 08:54] LABS: INR 0.94 (0.9-1.1); Prothrombin Time 10.4 seconds (9.2-12.1)
[2024-12-10] MEDS: IOPAMIDOL-370 (76%);100ML BOTTLE 160 ML IV (09:06)
[2024-12-10] MEDS: SODIUM CHLORIDE 0.9% 10ML SYR (RAD ONLY) 10 ML IV (09:06)
[2024-12-10] MEDS: 0.9 % SODIUM CHLORIDE 50 ML VIAL IV (09:06)
[2024-12-10] MEDS: ACETAMINOPHEN 1,000MG/100ML VIAL 1000 MG IV (09:07)
[2024-12-10 09:10] LABS: Creatine Kinase 127 U/L (55-170)
--- NOTE | 2024-12-10 09:32 | PC.NURSE ---
ROUNDED ON THE PT. THE PT VICES THAT HE DOES NOT NEED ANYTHING AT THIS TIME. CALL LIGHT IS WITHIN REACH OF THE PT.
[2024-12-10 10:04] LABS: Magnesium 1.3 mg/dl (1.6-2.3); Phenytoin (Dilantin) 14.1 ug/ml (10-20)
[2024-12-10 10:08] LABS: HIV Combo NEGATIVE (Negative)
[2024-12-10 10:11] LABS: Phosphorous 1.8 mg/dl (2.5-4.5)
[2024-12-10 10:16] LABS: Hepatitis C Ab Qual. W/ RFX NEGATIVE (Negative)
--- NOTE | 2024-12-10 10:34 | PC.NURSE ---
Dr. Mitchell notified of troponin of 4.33.
[2024-12-10 10:35] LABS: Troponin I 4.33 ng/ml (0.00-0.034)
--- NOTE | 2024-12-10 10:35 | HMH.PHAINT1 ---
Pharmacy Intervention Comments: MEDICATION RECONCILIATION COMPLETED ON PATIENT USING EXTERNAL FILL HISTORY FROM PHARMACY AND CT REPORT. -KENRICK MEEKS, GIOD
--- NOTE | 2024-12-10 10:37 | ECG_ITS ---
APPROVED REPORT Exam: Resting ECG HR:111 bpm ECG Measurements Heart Rate 111 AXES IL 172 P 76 QRSd 100 QRS 34 QT 325 T 87 QTc 391 Conclusion SINUS TACHYCARDIA NONSPECIFIC ST ELEVATION [0.05+ mV ST ELEVATION] ABNORMAL RHYTHM ECG UNCONFIRMED REPORT Electronically signed by : SHERIE BIRCH, 12/12/2024 00:00:23
[2024-12-10] MEDS: MAGNESIUM SULFATE IN WATER 2 GM/50 ML PIGGYBACK IV (10:41)
[2024-12-10] MEDS: PIPERACILLIN/TAZO 3.375 GM in 0.9 % SODIUM CHLORIDE 50 ML IV (10:41)
--- NOTE | 2024-12-10 10:41 | PC.NURSE ---
ROUNDED ON THE PT. THE PT VOICES THAT HE DOES NOT NEED ANYTHING AT THIS TIME. CALL LIGHT IS WITHIN REACH OF THE PT.
[2024-12-10] MEDS: VANCOMYCIN CONSULT REQUEST 1 EACH NOTAPPLIC (10:43)
--- NOTE | 2024-12-10 10:46 | CA_ITS ---
APPROVED REPORT EXAM: Comprehensive 2D, Doppler, and color-flow Echocardiogram Social Work Administrator: Navya Akbar CRT Ht: 6 ft 0 in Wt: 186lbs BSA: 2.07 BP: 108/70 mmHg Indications: Smoker, increased troponin, seizure disorder, pneumonia 2D Dimensions LA Volume 36.00 mL LA Volume Index 17.00 mL/m2 (M/F) 16-34 M-Mode Dimensions RVDd 2.39 cm (0.9-2.6) LA Diam 3.88 cm (1.9-4.0) LVDd 4.95 cm (3.5-5.7) LVDs 3.23 cm (3.5-5.7) IVSd 1.41 cm (0.6-1.1) PWd 0.66 cm (0.6-1.1) EF (Teich) 63.70% FS 34.70% EDV (Teich) 115.50 mL TAPSE 1.37 (<1.7) ESV (Teich) 41.90 mL LV Diastology E Decel Time 110 (160-240 msec) E/A Ratio 1.36 MED A' 10.00 cm/s LAT A' 6.20 cm/s Aortic Valve AO Peak GR. 5.80 mmHg Mitral Valve MV E Max Rudolph. 89.0 (40-130 cm/s) MV A Velocity 65.0 (40-130 cm/s) E/A Ratio 1.36 MV PHT 32.0 ms Pulmonary Valve PV Peak Velocity 196.0 (50-150 cm/s) Tricuspid Valve TR P. Velocity 262.00 cm/s RAP Estimate 10.00 mmHg RVSP 37.60 mmHg Left Ventricle The left ventricle is normal size. Left ventricular systolic function is severely decreased. There is increased LV wall thickness. There is severe global hypokinesis. The septal, anteroeptal, and inferoseptal LV haider are nearly akinetic. The LV apex is akinetic. Grade 1 diastolic dysfunction is present. LVEF is 25%. Right Ventricle The right ventricle is mildly dilated. Right ventricle is mildly hypokinetic. Atria Left atrium is mildly dilated. Right atrium is mildly dilated. There is no Doppler evidence of interatrial shunt. Aortic Valve The aortic valve is mildly thickened. Trace aortic regurgitation. There is no aortic valvular stenosis. Mitral Valve The mitral valve is normal in structure. No evidence of mitral valve stenosis. Mild mitral regurgitation. Tricuspid Valve The tricuspid valve leaflets are thin and pliable. Mild tricuspid regurgitation. RVSP is 25-30 mmHg. Pulmonic Valve The pulmonary valve is normal in structure. Mild pulmonic regurgitation. Great Vessels The aortic root is normal in size. IVC is normal in size and collapses >50% with inspiration. Pericardium There is no pericardial effusion. Other Information Study Quality: Fair Conclusion Severe reduction in LV systolic function (LVEF 25%). There is severe global hypokinesis. The septal, anteroeptal, and inferoseptal LV haider are nearly akinetic. The LV apex is akinetic. Mild RV dilation with mild reduction in RV function. Biatrial dilation. Mild MR, mild TR, mild PI. Electronically signed by : Brook Calhoun MD 12/10/2024 12:36:36
--- NOTE | 2024-12-10 10:49 | PC.NURSE ---
Dr. Mitchell s/w Dr. Chavez.
[2024-12-10 10:50] LABS: T4 (Thyroxine) 7.9 ug/dl (5.53-11.0); Thyroid Stimulating Hormone 1.34 uIU/mL (0.465-4.68)
--- NOTE | 2024-12-10 10:52 | PC.NURSE ---
Dr. Mitchell notified of Phos of 1.8.
--- NOTE | 2024-12-10 10:58 | PC.NURSE ---
airflight attendants supervisor notified of admission.
--- NOTE | 2024-12-10 11:01 | EXP.HP ---
History of Present Illness *Admission Date: 12/10/24 *Reason for visit:: Seizure *History of present illness: Mr. Curiel is a 64-year-old male with history of seizure disorder for he was 3. He presented to the ER because of concern for breakthrough seizure overnight. He was brought in via EMS who states they were called to his house 3 times in the past 24 hours for seizure activity. For seizure was last night at 7 PM and has had 2 stents. He is back to baseline mentation upon arrival to the ER. Does state that he had a postictal phase and some confusion but is feeling somewhat better. Complaining of having chest pain earlier today but none at this time. States he has been sick for the past 3 to 4 months has not been feeling well overall. Noted to have pain in his left leg and worse with weightbearing and walking. Also complains of a cough and some shortness of breath. Found to be sick in the ER, necessitating 4 L oxygen. Workup in the ER concerning for bilateral pneumonia, severe sepsis, NSTEMI. Medicine consulted for admission and further management. On arrival to the ICU, patient is alert and oriented x 4. States he has not had a seizure in many months. Has been taking his medications. Denies jorge fever. Workup in the ER with normal white count of 10.7. Troponin elevated at 4.3. Kidney function normal with BUN 9, creatinine 0.6. Patient is tachycardic, tachypneic, new oxygen requirement. Chest imaging per my review with pneumonia bilaterally in lower lobes. Given his organ dysfunction and vital instability, meeting criteria for severe sepsis. Patient was given Sepsis bolus and loaded with 4 g Keppra. Administered vancomycin and Zosyn. Cultures obtained. [facility] Disclaimer: The information contained in this section may have been updated after the patient was seen, as this information can be updated by other users. Medical History Erosive esophagitis Seizure disorder Elevated liver enzymes Acute upper gastrointestinal bleeding Left thyroid nodule Neutropenia Breakthrough seizure [place] esophagitis Transaminitis Tongue ulcer Candidiasis of mouth Pneumonia Surgical History History of surgery on lower extremity History of surgery of head Family History Other Cancer Social History Smoking Status: Current every day smoker tobacco type: cigarettes packs per day: 1 alcohol intake: never substance use type: denies use current occupational status: other Travel in the last 8 weeks: None Have you lived/traveled outside [place] in past 30 days?: No Contact w/someone who lives/traveled outside US past 30 days?: No Exposure to someone with infectious disease in past 14 days?: No Do you have a fever (greater than 100.4 F or 38 C)?: No Have you tested positive for COVID-19: No Exposed to someone with COVID-19 in past 14 days?: No Do you have a sore throat?: No Do you have a cough?: No Do you have any weakness?: No Are you experiencing any nausea/vomitting?: No Do you have any diarrhea?: No Are you experiencing any unusual bleeding?: No Do you have any muscle aches/pain?: No Do you have any abdominal pain?: No Are you experiencing loss of taste or smell?: No Other Medical History Have you received the Flu Vaccine for this season: No Have you received the Pneumonia Vaccine: No Review of Systems Review of Systems Review of systems (narrative): 14 point review of systems performed, pertinent positives and negatives as per HPI Meds Home Medications and Allergies Home Medications ?Medication ?Instructions ?Recorded ?Confirmed ?Type diazepam 10 mg tablet 10 mg PO BIDP PRN Seizures 09/16/23 12/10/24 History levetiracetam 500 mg tablet 1,000 mg PO HS 09/16/23 12/10/24 History levetiracetam 500 mg tablet 500 mg PO DAILY 09/16/23 12/10/24 History phenytoin sodium extended 100 mg 200 mg PO DAILY 09/16/23 12/10/24 History capsule phenytoin sodium extended 100 mg 300 mg PO HS 09/16/23 12/10/24 History capsule pantoprazole 40 mg tablet,delayed 40 mg PO BID #30 tabs 09/19/23 12/10/24 Rx release (Protonix) New Prescriptions to Start Prescriptions: Allergies Allergy/AdvReac Type Severity Reaction Status Date / Time phenobarbital Allergy Severe Swelling Verified 12/10/24 11:41 of Lip/Tongue/Throat Exam Data for Last 24 hours Vital signs and Labs for Last 24 Hours: Temp Pulse Resp BP Pulse Ox O2 Del Method O2 Flow Rate 99.9 F H 114 H 28 H 99/64 L 90 L Nasal Cannula 3 12/10/24 08:20 12/10/24 10:30 12/10/24 10:30 12/10/24 10:30 12/10/24 10:30 12/10/24 10:30 12/10/24 10:30 Laboratory Results - last 24 hr 12/10/24 08:07: VBG pH 7.44 H, VBG pCO2 30.9 L, VBG pO2 42.6 H, VBG HCO3 20.7 L, VBG Total CO2 21.7 L, VBG O2 Saturation 81.9 H, VBG Base Excess -3.4 L, VBG Lactic Acid 3.4 H 12/10/24 08:09: SARS-CoV-2 (PCR) Not detected, Influenza A Untype (PCR) Not detected, Influenza Type B (PCR) Not detected 12/10/24 08:20: WBC 10.7, RBC 4.84, Hgb 14.6, Hct 42.2, MCV 87.2, MCH 30.2, MCHC 34.6, RDW 15.9, Plt Count 215, MPV 10.4, Neut % (Auto) 45.5, Lymph % (Auto) 46.1, [place] % (Auto) 7.5, Eos % (Auto) 0.4, Baso % (Auto) 0.3, Neut # (Auto) 4.9, Lymph # (Auto) 4.9 H, [place] # (Auto) 0.8, Eos # (Auto) 0.0, Baso # (Auto) 0.0, PT 10.4, INR 0.94, Sodium 135 L, Potassium 3.7, Chloride 105, Carbon Dioxide 21 L, Anion Gap 12.7, BUN 9, Creatinine 0.60 L, Estimated GFR 136, Est GFR ( Amer) 164, Glucose 137 H, Calcium 8.1 L, Phosphorus 1.8 L, Magnesium 1.3 L, Total Bilirubin 0.9, AST 49, ALT 30, Alkaline Phosphatase 284 H, Total Creatine Kinase 127, Troponin I 4.33 H, Total Protein 7.6, Albumin 3.5, Globulin 4.1 H, Albumin/Globulin Ratio 0.9 L, Lipase 80, TSH 1.34, Thyroxine (T4) 7.9, Urine Color Cancelled, Urine Appearance Cancelled, Urine pH Cancelled, Ur Specific [place] Cancelled, Urine Protein Cancelled, Urine Glucose (UA) Cancelled, Urine Ketones Cancelled, Urine Blood Cancelled, Urine Nitrate Cancelled, Urine Bilirubin Cancelled, Urine Urobilinogen Cancelled, Ur Leukocyte Esterase Cancelled, Urine RBC Cancelled, Urine WBC Cancelled, Ur Squamous Epith Cells Cancelled, Ur Transition Epith Cell Cancelled, Ur Renal Epithelial Cell Cancelled, Calcium Carbonate Cryst Cancelled, Calcium Phosphate Cryst Cancelled, Calcium Oxalate Crystal Cancelled, Cystine Crystals Cancelled, Uric Acid Crystals Cancelled, Triple Phos Crystals Cancelled, Tyrosine Crystals Cancelled, Other Crystals Cancelled, Amorphous Sediment Cancelled, Other Sediment Cancelled, Urine Bacteria Cancelled, Fatty Casts Cancelled, Hyaline Casts Cancelled, Fine Granular Casts Cancelled, Coarse Granular Casts Cancelled, Waxy Casts Cancelled, RBC Casts Cancelled, WBC Casts Cancelled, Other Casts Cancelled, Urine Mucus Cancelled, Urine Trichomonas Cancelled, Urine Yeast Cancelled, Urine Sperm Cancelled, Phenytoin 14.1, HCV Ab SHERRI w/Rflx PCR Qn Negative, HIV Ag/Ab Combo Qual Negative I & O for Last 24 hours: Intake & Output 12/07/24 12/08/24 12/09/24 12/10/24 23:59 23:59 23:59 23:59 Weight 84.368 kg Constitutional Constitutional: moderate distress, average body habitus, chronically ill appearing and cooperative *Routine HEENT Exam Head: Present normocephalic Eye: Present EOMI and PERRL ENT: Present mucous membranes moist *Routine Neck Exam Neck: Present supple *Routine Respiratory Exam Respiratory: Present CTA bilaterally and crackles; Absent rhonchi or wheezes *Routine Cardiovascular Exam Cardiovascular: Present tachycardia and irregularly irregular *Routine Abdominal Exam Abdominal: Present soft and normoactive bowel sounds; Absent tenderness *Routine Rectal Exam Rectal:: deferred *Routine Genitalia Exam Genitalia:: deferred *Routine Extremities Exam Extremities: Absent cyanosis, clubbing or edema *Routine Skin Exam Skin: Present intact, dry, pallor and warm; Absent rash *Routine Neurological Exam Neurological: Present alert, oriented X3 and moving all extremities; Absent altered mental status Routine Psychiatric Exam Psychiatric: Present normal affect Assessment and Plan *Assessment and plan (1) Severe sepsis: Status: Acute Category: Medical Code(s): A41.9 - Sepsis, unspecified organism; R65.20 - Severe sepsis without septic shock (2) Bilateral pneumonia: Status: Acute Category: Medical Code(s): J18.9 - Pneumonia, unspecified organism (3) HFrEF (heart failure with reduced ejection fraction): Status: Acute Category: Medical Code(s): I50.20 - Unspecified systolic (congestive) heart failure (4) NSTEMI (non-ST elevated myocardial infarction): Status: Acute Category: Medical Code(s): I21.4 - Non-ST elevation (NSTEMI) myocardial infarction (5) Breakthrough seizure: Status: Acute Category: Medical Code(s): G40.919 - Epilepsy, unspecified, intractable, without status epilepticus Plan 64-year-old male with history of seizure disorder. Has had breakthrough seizures over the past 24 hours. Presents to the ER with severe sepsis. Found to have NSTEMI and bilateral pneumonia. Discussed case with ER physician, request admission. I agreed to admit to the ICU for further management. Cardiology consulted to assist with treatment of NSTEMI. Patient's condition serious. Necessitating ICU level care. Problems addressed as follows: Severe sepsis Bilateral pneumonia, suspected aspiration -CT per my review of bilateral pneumonia. Left is worse than right. -Continue supplemental oxygen for goal sats greater 90%. Currently on 3 L -Initiated on vancomycin and Zosyn in the ER. Continue ceftriaxone 2 g daily -Sputum and blood cultures obtained -White count normal at 10.7. Hemoglobin 14.6. Repeat CBC, CMP, magnesium ordered for the morning. Electrolytes abnormal with potassium 3.7, magnesium 1.3. Phosphorus 1.8. Replacing on admission. Electrolyte protocol ordered. Kidney function normal with BUN 9, creatinine 0.6 NSTEMI Acute heart failure with reduced ejection fraction -Cardiology consulted, appreciate their assistance in care. Echo obtained showing severely reduced EF of 25% -Severe global hypokinesis with akinetic septal, anteroseptal, inferoseptal LV wall. Mild RV dilation. -Cardiology recommends left heart cath prior to discharge. - Serial troponins obtained. Initial troponin 4.3, peaked at 5.3. 6-hour pending. -Heart failure appears to be new diagnosis. Cardiology recommends starting aspirin 81 mg daily, statin high intensity, heparin drip. Will hold on beta-thelma or ARB due to hypotension. - consider LifeVest prior to DC Seizure disorder Breakthrough seizure - known seizures history, had 3 on day of admission -Loaded with Keppra 4 g. Continue 1000 mg twice daily. Continue phenytoin extended release 300 mg nightly and 200 mg daily. -Seizure precautions GERD: Continue pantoprazole 40 mg nightly Full code Heparin drip Regular diet
[2024-12-10 11:10] LABS: NT Pro Brain Natriuretic Pep. 2010 pg/mL (0-125)
[2024-12-10] MEDS: K-PHOS NEUTRAL 250MG TABLET 250 MG PO ×2 (11:43→23:21)
--- NOTE | 2024-12-10 11:52 | PC.NURSE ---
Called report to Merary Cartwright RN in SCU
[2024-12-10] MEDS: VANCOMYCIN/WATER FOR INJ (PEG) 1.75 GM/350 ML PIGGYBACK IV (12:07)
--- NOTE | 2024-12-10 12:30 | PC.NURSE ---
Pt transferred to [facility]U by Brynn Anthony RN. I also updated pt's of pt admission status and POC. States she will be here tomorrow to see him and for staff to call if there are any changes or updates. H: [phone], C: [phone]
[2024-12-10 12:34] LABS: Reflex Lactic Add Lactic Reflex
[2024-12-10 12:37] LABS: Troponin I 5.31 ng/ml (0.00-0.034)
[2024-12-10 13:13] LABS: Lactic Acid Follow Up (RFLX 1) 3.1 mmol/L (0.7-2.1)
--- NOTE | 2024-12-10 13:31 | P.CONPHA_ITS ---
[facility] Pharmacy Heparin Dosing Demographic Data Admission date:: 12/10/24 Date: 12/10/24 Time: 13:31 Allergies Allergy/AdvReac Type Severity Reaction Status Date / Time phenobarbital Allergy Severe Swelling Verified 12/10/24 11:41 of Lip/Tongue/Throat Height: 1.83 m Weight: 84.4 kg Indication Medication therapy:: Heparin Current Active Problems (Updated 12/10/24 @ 18:53 by Warren Bright MD) Bilateral pneumonia (Acute) Severe sepsis (Acute) HFrEF (heart failure with reduced ejection fraction) (Acute) NSTEMI (non-ST elevated myocardial infarction) (Acute) Elevated troponin (Acute) Sepsis due to pneumonia (Acute) Aspiration into airway (Acute) Cerebrovascular small vessel disease (Acute) Other calcification of muscle, left upper arm (Acute) Acute pain of left shoulder (Acute) Hypophosphatemia (Acute) Hypomagnesemia (Acute) Breakthrough seizure (Acute) CVA?: No Bleeding problem?: No Kidney disease?: No GA?: No Desired PTT range:: 50-75 seconds Labs Anticoagulation Lab Results:: 12/10/24 08:20 Hgb 14.6 Hct 42.2 Plt Count 215 Monitoring Dose Monitor 1: Date: 12/10/24 Time: 14:30 PTT Result:: 24.6 Infusion Rate:: 1,000 UNITS/HR Comment:: 4,000 UNIT BOLUS Dose Monitor 2: Date: 12/10/24 Time: 20:30 PTT Result:: 83.1 Infusion Rate:: DECREASE RATE TO 920 UNITS/HR Dose Monitor 3: Date: 12/11/24 Time: 04:30 PTT Result:: 66.1 Infusion Rate:: 920 UNITS/HR Dose Monitor 4: Date: 12/11/24 Time: 11:00 PTT Result:: 69.7 Comment:: HEPARIN DRIP STOPPED POST CATH Core Measures Is INR > or = 2 at discharge?: No Most Recent Labs:: Laboratory Results - last 24 hr 12/10/24 08:07: VBG pH 7.44 H, VBG pCO2 30.9 L, VBG pO2 42.6 H, VBG HCO3 20.7 L, VBG Total CO2 21.7 L, VBG O2 Saturation 81.9 H, VBG Base Excess -3.4 L, VBG Lactic Acid 3.4 H 12/10/24 08:09: SARS-CoV-2 (PCR) Not detected, Influenza A Untype (PCR) Not detected, Influenza Type B (PCR) Not detected 12/10/24 08:20: WBC 10.7, RBC 4.84, Hgb 14.6, Hct 42.2, MCV 87.2, MCH 30.2, MCHC 34.6, RDW 15.9, Plt Count 215, MPV 10.4, Neut % (Auto) 45.5, Lymph % (Auto) 46.1, [place] % (Auto) 7.5, Eos % (Auto) 0.4, Baso % (Auto) 0.3, Neut # (Auto) 4.9, Lymph # (Auto) 4.9 H, [place] # (Auto) 0.8, Eos # (Auto) 0.0, Baso # (Auto) 0.0, PT 10.4, INR 0.94, Sodium 135 L, Potassium 3.7, Chloride 105, Carbon Dioxide 21 L, Anion Gap 12.7, BUN 9, Creatinine 0.60 L, Estimated GFR 136, Est GFR ( Amer) 164, Glucose 137 H, Calcium 8.1 L, Phosphorus 1.8 L, Magnesium 1.3 L, Total Bilirubin 0.9, AST 49, ALT 30, Alkaline Phosphatase 284 H, Total Creatine Kinase 127, Troponin I 4.33 H, NT-Pro-B Natriuret Pep 2010 H, Total Protein 7.6, Albumin 3.5, Globulin 4.1 H, Albumin/Globulin Ratio 0.9 L, Lipase 80, TSH 1.34, Thyroxine (T4) 7.9, Urine Color Cancelled, Urine Appearance Cancelled, Urine pH Cancelled, Ur Specific [place] Cancelled, Urine Protein Cancelled, Urine Glucose (UA) Cancelled, Urine Ketones Cancelled, Urine Blood Cancelled, Urine Nitrate Cancelled, Urine Bilirubin Cancelled, Urine Urobilinogen Cancelled, Ur Leukocyte Esterase Cancelled, Urine RBC Cancelled, Urine WBC Cancelled, Ur Squamous Epith Cells Cancelled, Ur Transition Epith Cell Cancelled, Ur Renal Epithelial Cell Cancelled, Calcium Carbonate Cryst Cancelled, Calcium Phosphate Cryst Cancelled, Calcium Oxalate Crystal Cancelled, Cystine Crystals Cancelled, Uric Acid Crystals Cancelled, Triple Phos Crystals Cancelled, Tyrosine Crystals Cancelled, Other Crystals Cancelled, Amorphous Sediment Cancelled, Other Sediment Cancelled, Urine Bacteria Cancelled, Fatty Casts Cancelled, Hyaline Casts Cancelled, Fine Granular Casts Cancelled, Coarse Granular Casts Cancelled, Waxy Casts Cancelled, RBC Casts Cancelled, WBC Casts Cancelled, Other Casts Cancelled, Urine Mucus Cancelled, Urine Trichomonas Cancelled, Urine Yeast Cancelled, Urine Sperm Cancelled, Phenytoin 14.1, HCV Ab SHERRI w/Rflx PCR Qn Negative, HIV Ag/Ab Combo Qual Negative 12/10/24 11:57: Troponin I 5.31 H 12/10/24 12:47: Lactate 3.1 H Were Heparin and Warfarin started on the same day?: No If not, why?: HEPARIN DRIP STOPPED POST CATH
[2024-12-10] MEDS: ASPIRIN EC 81MG TABLET 81 MG PO (14:08)
[2024-12-10] MEDS: HEPARIN SODIUM 5,000 UNIT/ML VIAL 4000 UNIT IV (14:16)
[2024-12-10] MEDS: HEPARIN SODIUM,PORCINE/D5W 500 ML 20 UNIT IV (14:16)
--- NOTE | 2024-12-10 14:18 | ECG_ITS ---
APPROVED REPORT Exam: Resting ECG HR:104 bpm ECG Measurements Heart Rate 104 AXES CA 178 P 76 QRSd 85 QRS 15 QT 327 T 93 QTc 387 Conclusion SINUS TACHYCARDIA LOW QRS VOLTAGE IN EXTREMITY LEADS [QRS DEFLECTION < 0.5 mV IN LIMB LEADS] ABNORMAL QRS-T ANGLE [QRS-T AXIS DIFFERENCE > 60] ABNORMAL ECG UNCONFIRMED REPORT Electronically signed by : Tito Bright MD 12/10/2024 17:23:29
[2024-12-10] MEDS: SODIUM CHLORIDE 3% 15ML NEB 3 ML IH (14:25)
--- NOTE | 2024-12-10 14:38 | EXP.CARD.CON ---
History of Present Illness History of Present Illness Consult date: 12/10/24 Requesting physician: Adrianna Mitchell Chief complaint: seizure History of present illness: 64-year-old white male without known cardiovascular disease but a known seizure disorder on medications presented to the emergency room for 3 separate seizures. EMS states on arrival they found him with vomit on his chart and postictal state. Patient brought to the emergency room and diagnosed with aspiration pneumonia with septic shock. Initial troponin 4.3 with EKG showing sinus tach 133. CTA chest negative for PE but consistent with bilateral pneumonia. Patient is hypoxic at 92% on 3 L. Patient does endorse episodic chest discomfort today which he states is not unusual in the setting of seizures for him. Prior to today he had no exertional chest discomfort but states he is very limited due to chronic pain in his left foot. He is retired and does very little around the house. He denies alcohol tobacco and drug use. There is an ER note here from over 1 year ago where patient responded to Narcan by EMS and he later left the emergency room AMA. I am seeing patient after admission in the ICU. He denies any chest pain at that time. Repeat EKG shows sinus rhythm without ischemic changes or ectopy. 2D echo shows EF 25% with wall motion abnormalities consistent with LAD distribution. [facility] Disclaimer: The information contained in this section may have been updated after the patient was seen, as this information can be updated by other users. Medical History Erosive esophagitis Seizure disorder Elevated liver enzymes Acute upper gastrointestinal bleeding Left thyroid nodule Neutropenia Breakthrough seizure Jo Ann esophagitis Transaminitis Tongue ulcer Candidiasis of mouth Pneumonia Surgical History History of surgery on lower extremity History of surgery of head Social History Smoking Status: Current every day smoker tobacco type: cigarettes packs per day: 1 alcohol intake: never substance use type: denies use current occupational status: other Travel in the last 8 weeks: None Have you lived/traveled outside [place] in past 30 days?: No Contact w/someone who lives/traveled outside US past 30 days?: No Exposure to someone with infectious disease in past 14 days?: No Do you have a fever (greater than 100.4 F or 38 C)?: No Have you tested positive for COVID-19: No Exposed to someone with COVID-19 in past 14 days?: No Do you have a sore throat?: No Do you have a cough?: No Do you have any weakness?: No Do you have any diarrhea?: No Are you experiencing any unusual bleeding?: No Do you have any muscle aches/pain?: No Do you have any abdominal pain?: No Are you experiencing loss of taste or smell?: No Review of Systems Constitutional Constitutional: Reports fatigue and Reports weakness Eyes Eyes: Denies loss of vision ENT Ears, Nose, Mouth, and Throat: Denies hearing loss and Denies vertigo *Cardiovascular Cardiovascular: Reports chest pain, Reports dyspnea and Denies syncope *Respiratory Respiratory: Reports cough and Reports dyspnea *Gastrointestinal Gastrointestinal: Denies change in stool character, Denies nausea and Denies vomiting *Genitourinary Genitourinary: Denies difficulty urinating *Musculoskeletal Musculoskeletal: Denies muscle weakness Comments: Chronic left upper extremity and left lower extremity pain Integumentary/Breasts Skin/Breast: Denies changing lesions *Neurologic Neurologic: Denies loss of vision, Denies syncope, Denies vertigo and Reports weakness Comments: Recurrent seizures Endocrine Endocrine: Reports fatigue Exam Data for Last 24 hours Vital signs and Labs for Last 24 Hours: Temp Pulse Resp BP Pulse Ox O2 Del Method O2 Flow Rate 98.8 F 103 H 26 H 94/62 L 92 L Nasal Cannula 3 12/10/24 12:15 12/10/24 14:26 12/10/24 12:15 12/10/24 12:15 12/10/24 12:00 12/10/24 12:15 12/10/24 12:15 Laboratory Results - last 24 hr 12/10/24 08:07: VBG pH 7.44 H, VBG pCO2 30.9 L, VBG pO2 42.6 H, VBG HCO3 20.7 L, VBG Total CO2 21.7 L, VBG O2 Saturation 81.9 H, VBG Base Excess -3.4 L, VBG Lactic Acid 3.4 H 12/10/24 08:09: SARS-CoV-2 (PCR) Not detected, Influenza A Untype (PCR) Not detected, Influenza Type B (PCR) Not detected 12/10/24 08:20: WBC 10.7, RBC 4.84, Hgb 14.6, Hct 42.2, MCV 87.2, MCH 30.2, MCHC 34.6, RDW 15.9, Plt Count 215, MPV 10.4, Neut % (Auto) 45.5, Lymph % (Auto) 46.1, Alexander % (Auto) 7.5, Eos % (Auto) 0.4, Baso % (Auto) 0.3, Neut # (Auto) 4.9, Lymph # (Auto) 4.9 H, Alexander # (Auto) 0.8, Eos # (Auto) 0.0, Baso # (Auto) 0.0, PT 10.4, INR 0.94, Sodium 135 L, Potassium 3.7, Chloride 105, Carbon Dioxide 21 L, Anion Gap 12.7, BUN 9, Creatinine 0.60 L, Estimated GFR 136, Est GFR ( Amer) 164, Glucose 137 H, Calcium 8.1 L, Phosphorus 1.8 L, Magnesium 1.3 L, Total Bilirubin 0.9, AST 49, ALT 30, Alkaline Phosphatase 284 H, Total Creatine Kinase 127, Troponin I 4.33 H, NT-Pro-B Natriuret Pep 2010 H, Total Protein 7.6, Albumin 3.5, Globulin 4.1 H, Albumin/Globulin Ratio 0.9 L, Lipase 80, TSH 1.34, Thyroxine (T4) 7.9, Urine Color Cancelled, Urine Appearance Cancelled, Urine pH Cancelled, Ur Specific [place] Cancelled, Urine Protein Cancelled, Urine Glucose (UA) Cancelled, Urine Ketones Cancelled, Urine Blood Cancelled, Urine Nitrate Cancelled, Urine Bilirubin Cancelled, Urine Urobilinogen Cancelled, Ur Leukocyte Esterase Cancelled, Urine RBC Cancelled, Urine WBC Cancelled, Ur Squamous Epith Cells Cancelled, Ur Transition Epith Cell Cancelled, Ur Renal Epithelial Cell Cancelled, Calcium Carbonate Cryst Cancelled, Calcium Phosphate Cryst Cancelled, Calcium Oxalate Crystal Cancelled, Cystine Crystals Cancelled, Uric Acid Crystals Cancelled, Triple Phos Crystals Cancelled, Tyrosine Crystals Cancelled, Other Crystals Cancelled, Amorphous Sediment Cancelled, Other Sediment Cancelled, Urine Bacteria Cancelled, Fatty Casts Cancelled, Hyaline Casts Cancelled, Fine Granular Casts Cancelled, Coarse Granular Casts Cancelled, Waxy Casts Cancelled, RBC Casts Cancelled, WBC Casts Cancelled, Other Casts Cancelled, Urine Mucus Cancelled, Urine Trichomonas Cancelled, Urine Yeast Cancelled, Urine Sperm Cancelled, Phenytoin 14.1, HCV Ab SHERRI w/Rflx PCR Qn Negative, HIV Ag/Ab Combo Qual Negative 12/10/24 11:57: Troponin I 5.31 H 12/10/24 12:47: Lactate 3.1 H I & O for Last 24 hours: Intake & Output 12/07/24 12/08/24 12/09/24 12/10/24 23:59 23:59 23:59 23:59 Intake Total 2600 / 2600 Balance 2600 / 2600 Weight 186 lb 1.122 oz Constitutional Constitutional: no acute distress and cooperative Comments: Appears acutely ill *Routine HEENT Exam Eye: Present PERRL *Routine Respiratory Exam Respiratory: Present CTA bilaterally; Absent accessory muscle use, wheezes or crackles *Routine Cardiovascular Exam Cardiovascular: Present RRR, Normal S1 and Normal S2; Absent murmur, gallop or rubs *Routine Abdominal Exam Abdominal: Present soft; Absent tenderness *Routine Extremities Exam Extremities: Present pulses intact; Absent cyanosis or edema *Routine Skin Exam Skin: Present intact; Absent erythema or wounds *Routine Neurological Exam Neurological: Present alert and oriented X3 Comments: Postictal Routine Psychiatric Exam Psychiatric: Present cooperative Meds Home Medications and Allergies Home Medications ?Medication ?Instructions ?Recorded ?Confirmed ?Type diazepam 10 mg tablet 10 mg PO BIDP PRN Seizures 09/16/23 12/10/24 History levetiracetam 500 mg tablet 1,000 mg PO HS 09/16/23 12/10/24 History levetiracetam 500 mg tablet 500 mg PO DAILY 09/16/23 12/10/24 History phenytoin sodium extended 100 mg 200 mg PO DAILY 09/16/23 12/10/24 History capsule phenytoin sodium extended 100 mg 300 mg PO HS 09/16/23 12/10/24 History capsule pantoprazole 40 mg tablet,delayed 40 mg PO BID #30 tabs 09/19/23 12/10/24 Rx release (Protonix) New Prescriptions to Start Prescriptions: Allergies Allergy/AdvReac Type Severity Reaction Status Date / Time phenobarbital Allergy Severe Swelling Verified 12/10/24 11:41 of Lip/Tongue/Throat Assessment and Plan *Assessment and plan (1) NSTEMI (non-ST elevated myocardial infarction): Status: Acute Category: Medical Code(s): I21.4 - Non-ST elevation (NSTEMI) myocardial infarction (2) HFrEF (heart failure with reduced ejection fraction): Status: Acute Category: Medical Code(s): I50.20 - Unspecified systolic (congestive) heart failure (3) Sepsis due to pneumonia: Status: Acute Category: Medical Code(s): J18.9 - Pneumonia, unspecified organism; A41.9 - Sepsis, unspecified organism (4) Aspiration into airway: Status: Acute Category: Medical Code(s): T17.908A - Unspecified foreign body in respiratory tract, part unspecified causing other injury, initial encounter (5) Breakthrough seizure: Status: Acute Category: Medical Code(s): G40.919 - Epilepsy, unspecified, intractable, without status epilepticus Plan NSTEMI - new dx this admission with atypical angina, trop 4.3 then 5.3, EF 25% with WMA along LAD distribution - pt is currently symptom free and has no ST elevations on EKG - start ASA, statin, and Heparin drip - no BB/ARB due to hypotension/septic shock - will wait on [facility] until sz controlled and PNA improved - plan for predischarge [facility] HFrEF - new dx this admission with EF 25% with elevated trop in setting of septic shock - appears euvolemic on exam and imaging - GDMT on hold due to hypotension/septic shock - [facility] pending later this admission - consider LifeVest prior to DC Septic Shock - secondary to aspiration pna in setting of recurrent sz - received fluid bolus, on antibiotics Recurrent Sz - known seizures history, had 3 on day of admission - plans per primary service Nonadherence to treatment plan - several notes in chart report AMA here and from [facility] Questionable Recreational Drug Use - per notes here from last year - pt denies any drug, alc, tob - check UDS
[2024-12-10] MEDS: POTASSIUM PHOS IN 0.9 % NACL 15 MMOL/250 ML PIGGYBACK 62.5 MMOL IV (14:44)
[2024-12-10 14:58] LABS: Reflex Lactic (2 hrs) Add Lactic Reflex
[2024-12-10 15:15] LABS: Troponin I 3.36 ng/ml (0.00-0.034)
[2024-12-10 16:10] LABS: PTT Heparin (inpatient only) 24.6 Seconds (50-75)
[2024-12-10 16:12] LABS: Chloride 120 mmol/L (98-107); Potassium 5.4 mmoL/L (3.5-5.1); Sodium 144 mmol/L (136-145)
[2024-12-10 16:15] LABS: Anion Gap 15.4 mEq/L (5-15); Calcium 8.3 mg/dl (8.4-10.2); Carbon Dioxide 14 mmol/L (22.0-30.0); Creatinine Clearance Estimated 23 mL/min (50-200); Estimated Glomerular Filt Rate 16 ml/min (>60); GFR (African American) 19 ML/MIN (>60); Glucose 133 mg/dl (74-100); Lactic Acid Follow up (RFLX 2) 1.1 mmol/L (0.7-2.1); Phosphorous 5.8 mg/dl (2.5-4.5)
[2024-12-10 16:16] LABS: Magnesium 2.6 mg/dl (1.6-2.3)
--- NOTE | 2024-12-10 16:18 | PC.NURSE ---
called and spoke with oscar in pharmacy. pt ptt is 24.6, this if baseline ptt. 1614
[2024-12-10 16:37] LABS: Blood Urea Nitrogen 82 mg/dl (9-20)
[2024-12-10 18:55] LABS: Microscopic, Urine URINE MICROSCOPIC (MICROSCOPIC)
[2024-12-10 19:10] LABS: Appearance,Urine CLEAR (Clear); Blood, Urine Negative (Negative); Color,Urine YELLOW (Yellow); Glucose,Urine (UA) Negative (Negative); Ketones,Urine Negative (Negative); Leukocyte Esterase,Urine Negative (Negative); Nitrate,Urine Negative (Negative); PH,Urine 5.5 (5.0-8.5); Protein,Urine Negative (Negative); Specific Gravity, Urine 1.025 (1.005-1.030)
[2024-12-10 19:20] LABS: Amphetamine/Metha Screen,Urine Negative ng/ml (<1000)
[2024-12-10 19:21] LABS: Barbiturates Screen,Urine Negative ng/ml (<200)
[2024-12-10 19:22] LABS: Benzodiazepines Screen,Urine Negative ng/ml (<200); Cannabinoid Screen,Urine Negative ng/ml (<50)
[2024-12-10 19:23] LABS: Cocaine Screen,Urine Negative ng/ml (<300)
[2024-12-10 19:24] LABS: Methadone Screen,Urine Negative ng/ml (<300)
[2024-12-10 19:26] LABS: Opiate Screen,Urine Negative ng/ml (<300); Phencyclidine Screen,Urine Negative ng/ml (<25)
[2024-12-10 19:29] LABS: Bilirubin,Urine 1+ (Negative)
[2024-12-10] MEDS: levETIRAcetam 500 MG TABLET 1000 MG PO (20:21)
[2024-12-10] MEDS: PANTOPRAZOLE 40MG TABLET 40 MG PO (20:21)
[2024-12-10] MEDS: ATORVASTATIN 40MG TABLET 80 MG PO (20:21)
[2024-12-10] MEDS: PHENYTOIN 100MG CAPSULE 300 MG PO (20:21)
[2024-12-10] MEDS: CEFTRIAXONE SODIUM 2 GM in 0.9 % SODIUM CHLORIDE 100 ML IV (20:22)
[2024-12-10 21:57] LABS: Bacteria,Urine Trace /lpf; WBC,Urine Occasional #/hpf (0-3)
[2024-12-10 21:58] LABS: PTT Heparin (inpatient only) 83.1 Seconds (50-75)
--- NOTE | 2024-12-10 23:42 | PC.NURSE ---
Addendum entered by Janice Saldivar RN 12/10/24 23:44: Changed at 2200. Repeat lab draw @ 2147 Original Note: Spoke with pharmacy. Verbal order to decrease heparin to 920u/hr. Repeated, verified, and carried out.
[2024-12-11] VITALS (26 sets, daily range): BP systolic 96–115; BP diastolic 57–72; PULSE 94–110; RESP 18–32; TEMP 36.6–37.5; O2SAT 90–99; BMI 25.2; BMI 24.9
[2024-12-11] MEDS: K-PHOS NEUTRAL 250MG TABLET 250 MG PO (04:40)
[2024-12-11 04:46] LABS: Basophils % 0.3 % (0.1-2.0); Eosinophils % 0.1 % (0.1-12.0); Lymphocytes # 6.8 K/mm3 (0.7-4.5); Lymphocytes % 46.3 % (10-50); Mean Corpuscular HGB Conc 34.2 g/dL (31.8-35.4); Mean Corpuscular Volume 87.8 fl (80-94); Mean Platelet Volume 10.1 fl (7.4-10.4); Monocytes % 6.6 % (1.7-9.3); Neutrophils # 6.8 K/mm3 (1.8-7.8); Neutrophils % 46.1 % (37.0-80.0); Platelet Count 170 K/mm3 (142-424); Red Cell Distribution Width 15.9 % (11.5-17.5); White Blood Count 14.8 K/mm3 (4.8-10.8)
[2024-12-11 04:47] LABS: Chloride 101 mmol/L (98-107)
[2024-12-11 04:48] LABS: Albumin Level 2.8 g/dl (3.5-5.0); Potassium 3.6 mmoL/L (3.5-5.1); Sodium 131 mmol/L (136-145)
[2024-12-11 04:50] LABS: Blood Urea Nitrogen 11 mg/dl (9-20); Creatinine Clearance Estimated 89 mL/min (50-200); Estimated Glomerular Filt Rate 167 ml/min (>60); GFR (African American) 203 ML/MIN (>60)
[2024-12-11 04:51] LABS: Alanine Aminotransferase 24 U/L (12-78); Albumin/Globulin Ratio 0.8 (1.1-1.8); Alkaline Phosphatase 155 U/L (38-126); Anion Gap 9.6 mEq/L (5-15); Aspartate Amino Transferase 46 U/L (17-59); Bilirubin,Total 1.4 mg/dl (0.2-1.3); Calcium 7.4 mg/dl (8.4-10.2); Carbon Dioxide 24 mmol/L (22.0-30.0); Globulin 3.3 g/dL (1.3-3.2); Glucose 130 mg/dl (74-100); Hemoglobin 12.3 g/dL (14.1-18.0); Magnesium 1.9 mg/dl (1.6-2.3); Total Protein,Serum 6.1 g/dl (6.3-8.2)
[2024-12-11 05:00] LABS: PTT Heparin (inpatient only) 66.1 Seconds (50-75)
[2024-12-11] MEDS: ASPIRIN EC 81MG TABLET 81 MG PO (09:48)
[2024-12-11] MEDS: PHENYTOIN 100MG CAPSULE 200 MG PO (09:48)
[2024-12-11] MEDS: levETIRAcetam 500 MG TABLET 1000 MG PO ×2 (09:48→20:52)
--- NOTE | 2024-12-11 09:54 | XR_ITS ---
FINAL REPORT CLINICAL HISTORY: CHF, COPD COMPARISON: 12/17/2023 FINDINGS: A portable view of the chest was obtained. Cardiac and mediastinal silhouettes are within normal limits. New bilateral perihilar and bibasilar opacities. There are likely small pleural effusions. No pneumothorax.. IMPRESSION: Findings favoring bilateral pneumonia. Reviewed, Interpreted and Dictated by Nora Marcial MD Transcribed by Zee Mckeon Authenticated and . [facility]
--- NOTE | 2024-12-11 10:02 | HMH.PTWOUND ---
Rehab Inpt Wound Evaluation Rehab IP Wound Evaluation Start: 12/11/24 05:15 Freq: ONCE Status: Active Protocol: Document 12/11/24 10:00 GENARO (Rec: 12/11/24 10:02 PHORODOLFO [id number]) Rehab PT Wound Assessment Subjective Subjective 64-year-old male with history of seizure disorder for he was 3. He presented to the ER because of concern for breakthrough seizure overnight . He was brought in via EMS who states they were called to his house 3 times in the past 24 hours for seizure activity . For seizure was last night at 7 PM and has had 2 stents. He is back to baseline mentation upon arrival to the ER. Does state that he had a postictal phase and some confusion but is feeling somewhat better. Complaining of having chest pain earlier today but none at this time. States he has been sick for the past 3 to 4 months has not been feeling well overall. Noted to have pain in his left leg and worse with weightbearing and walking. Also complains of a cough and some shortness of breath. Inpatient PT wound eval order entered per protocol due to pt intubated at this time and with low benito score. Currently pt has no wounds that necessitate treatment and nsg staff is performing all appropriate pressure relief per protocols. Plan/Recommendation Comment Currently no inpatient therapy wound care needs. Thank you for involving the wound care team in the care of this patient. Eval Complexity Eval Charge Codes 85866 - High Complexity PHYSICIAN CERTIFICATION: I certify the specified therapy services for Manuel Curiel are required, authorized, and reviewed every 30 days.
[2024-12-11 10:25] LABS: NT Pro Brain Natriuretic Pep. 16800 pg/mL (0-125)
--- NOTE | 2024-12-11 11:56 | IR_ITS ---
APPROVED REPORT Patient Location: Inpatient Threading Machine Operator: JUSTINA Marcos RT (R) PROCEDURES Left heart catheterization Left ventriculogram Selective coronary angiogram INDICATION Acute non-ST elevation myocardial infarction Informed consent was obtained prior to the procedure. COMPLICATIONS NONE Estimated Blood Loss: LESS THAN 10 ML TECHNIQUE One percent lidocaine used to anesthetize the right anterior aspect of the wrist. The right radial artery was accessed via the Seldinger technique. A 6 Yi sheath was placed in the right radial artery. 2.5 mg of Verapamil, 800 mcg of nitroglycerin, 1mg Lidocaine and 5000 U Heparin were given through the arterial sheath. The papa catheter was also used to perform left heart catheterization, left ventriculogram and selective coronary angiogram. At the end of the procedure the sheath was removed good hemostasis was achieved using Traclet band, patient was transferred to the postop holding area in stable condition. ANGIOGRAPHIC RESULTS The left main artery Normal The left anterior descending artery Is proximally normal with slow flow in the mid segment with virtually no flow into the apex. No thrombus is identified The circumflex artery Normal The right coronary artery Dominant normal The DUMAS ventriculogram reveals Mid anterior apical hypokinesis ejection fraction 35 to 40% The left ventricular end-diastolic pressure 15 mmHg IMPRESSION Presumed thrombus in the distal LAD however this was never identified No evidence of atherosclerotic disease Regional wall motion abnormality with reduced ejection fraction Normal LVEDP PLAN 1. Recommend cardiac source for embolism. If PFO present with [id number] shunt would recommend DOAC therapy. 2. If no PFO was present would recommend 1 year of DAPT therapy 3. Standard therapy for LV dysfunction 4. Standard medical therapy Electronically signed by : Steffen Chavez MD 12/12/2024 11:55:01
[2024-12-11 12:20] LABS: PTT Heparin (inpatient only) 69.7 Seconds (50-75)
[2024-12-11] MEDS: LIDOCAINE 1% 10ML MDV 20 ML IJ (13:01)
[2024-12-11] MEDS: HEPARIN 1,000 UNITS/ML 10ML VIAL (CATH LAB) 10000 UNIT IV (13:01)
[2024-12-11] MEDS: diphenhydrAMINE 50MG/ML VIAL 50 MG IV (13:01)
[2024-12-11] MEDS: NITROGLYCERIN 800MCG/8ML SYR (CATH LAB) 800 MCG IA (13:01)
[2024-12-11] MEDS: HEPARIN 1,000 UNITS/500ML NS (CATH LAB) 3000 UNIT IV (13:01)
[2024-12-11] MEDS: VERAPAMIL 2.5MG/ML 2ML VIAL 2.5 MG IV (13:01)
[2024-12-11] MEDS: 0.9 % SODIUM CHLORIDE 500 ML 25 ML IV (13:02)
[2024-12-11] MEDS: MIDAZOLAM HCL 1MG/ML 5ML VIAL 1 MG IV (13:27)
[2024-12-11] MEDS: FENTANYL 100MCG/2ML VIAL 50 MCG IV (13:27)
--- NOTE | 2024-12-11 13:37 | SUR.PHASEII ---
PATIENT RECOVERED IN LAB ON CATH TABLE THEN TAKEN TO 2ND FLOOR. SEE MERGE REPORT FOR VITALS.
--- NOTE | 2024-12-11 13:37 | EXP.CARD.PN ---
Subjective Subjective Date: 12/11/24 Time: 09:30 Interval history: No further seizures overnight. SOA is stable on 3L and he denies orthopnea. No arrhythmias on tele. Ongoing mild chest discomfort. He has esophageal candidiasis. Exam Data for Last 24 hours Vital signs and Labs for Last 24 Hours: Temp Pulse Resp BP Pulse Ox O2 Del Method O2 Flow Rate 99.3 F 100 H 32 H 107/70 L 96 Nasal Cannula 3 12/11/24 04:00 12/11/24 12:00 12/11/24 12:00 12/11/24 12:00 12/11/24 12:00 12/11/24 12:00 12/11/24 12:00 Laboratory Results - last 24 hr 12/10/24 14:00: APTT 24.6 L, Troponin I 3.36 H 12/10/24 15:37: Sodium 144, Potassium 5.4 H D, Chloride 120 H, Carbon Dioxide 14 L, Anion Gap 15.4 H, BUN 82 H D, Creatinine 3.90 H D, Estimated Creat Clear 23, Estimated GFR 16 L*, Est GFR ( Amer) 19 L* D, Glucose 133 H, Lactate 1.1, Calcium 8.3 L, Phosphorus 5.8 H D, Magnesium 2.6 H D 12/10/24 18:47: Urine Color Yellow, Urine Appearance Clear, Urine pH 5.5, Ur Specific Cantril 1.025, Urine Protein Negative, Urine Glucose (UA) Negative, Urine Ketones Negative, Urine Blood Negative, Urine Nitrate Negative, Urine Bilirubin 1+ A, Urine Urobilinogen 1.0, Ur Leukocyte Esterase Negative, Urine WBC Occasional, Ur Squamous Epith Cells None, Urine Bacteria Trace, Urine Opiates Screen Negative, Urine Methadone Screen Negative, Ur Barbituates Screen Negative, Ur Phencyclidine Scrn Negative, Ur Amphetamines Screen Negative, U Benzodiazepines Scrn Negative, Urine Cocaine Screen Negative, U Marijuana (THC) Screen Negative 12/10/24 21:08: APTT 83.1 H* 12/11/24 04:34: WBC 14.8 H D, RBC 4.10 L, Hgb 12.3 L D, Hct 36.0 L, MCV 87.8, MCH 30.0, MCHC 34.2, RDW 15.9, Plt Count 170, MPV 10.1, Neut % (Auto) 46.1, Lymph % (Auto) 46.3, [place] % (Auto) 6.6, Eos % (Auto) 0.1, Baso % (Auto) 0.3, Neut # (Auto) 6.8, Lymph # (Auto) 6.8 H, [place] # (Auto) 1.0, Eos # (Auto) 0.0, Baso # (Auto) 0.0, APTT 66.1, Sodium 131 L, Potassium 3.6 D, Chloride 101, Carbon Dioxide 24, Anion Gap 9.6, BUN 11 D, Creatinine 0.50 L D, Estimated Creat Clear 89, Estimated GFR 167, Est GFR ( Amer) 203 D, Glucose 130 H, Calcium 7.4 L, Magnesium 1.9 D, Total Bilirubin 1.4 H, AST 46, ALT 24, Alkaline Phosphatase 155 H, NT-Pro-B Natriuret Pep 06737 H, Total Protein 6.1 L, Albumin 2.8 L D, Globulin 3.3 H, Albumin/Globulin Ratio 0.8 L 12/11/24 10:55: APTT 69.7 I & O for Last 24 hours: Intake & Output 12/08/24 12/09/24 12/10/24 12/11/24 23:59 23:59 23:59 23:59 Intake Total 3497 / 3497 210 / 210 Output Total 450 / 450 200 / 200 Balance 3047 / 3047 10 / 10 Weight 186 lb 1.122 oz 186 lb 1.122 oz Microbiology Reports for the Last 24 Hours: Microbiology 12/10/24 08:20 Blood Blood Culture - Preliminary NO GROWTH AFTER 24 HOURS 12/10/24 08:22 Blood Blood Culture - Preliminary NO GROWTH AFTER 24 HOURS Constitutional Constitutional: no acute distress and cooperative *Routine HEENT Exam Eye: Present PERRL Comments: oropharyngeal candidiasis noted *Routine Respiratory Exam Respiratory: Present CTA bilaterally; Absent accessory muscle use, wheezes or crackles *Routine Cardiovascular Exam Cardiovascular: Present RRR, Normal S1 and Normal S2; Absent murmur, gallop or rubs *Routine Abdominal Exam Abdominal: Present soft; Absent tenderness *Routine Extremities Exam Extremities: Present pulses intact; Absent cyanosis or edema *Routine Skin Exam Skin: Present intact; Absent erythema or wounds *Routine Neurological Exam Neurological: Present alert and oriented X3 Routine Psychiatric Exam Psychiatric: Present cooperative Progress Note: A&P Assessment and plan (1) NSTEMI (non-ST elevated myocardial infarction): Status: Acute (2) HFrEF (heart failure with reduced ejection fraction): Status: Acute (3) Severe sepsis: Status: Acute (4) Bilateral pneumonia: Status: Acute (5) Breakthrough seizure: Status: Acute Assessment and Plan Assessment and Plan for All Diagnoses:: NSTEMI - new dx this admission with atypical angina, trop 4.3 then 5.3, EF 25% with WMA along LAD distribution - pt is currently symptom free and has no ST elevations on EKG - start ASA, statin, and Heparin drip - no BB/ARB due to hypotension/septic shock - will wait on [facility] until sz controlled and PNA improved - plan for predischarge [facility] - 12/11: Trop trended down. Mild ongoing CP. No further sz. Resp stable. Pt agreeable to [facility] today. HFrEF/ICM - new dx this admission with EF 25% with elevated trop in setting of septic shock - appears euvolemic on exam and imaging - GDMT on hold due to hypotension/septic shock - [facility] pending later this admission - consider LifeVest prior to DC - 12/11: Euvolemic, no orthopnea. Pt agreeable to LifeVest. BP stable off pressors. Add Entresto and Toprol low dose. No SGLT2 with sepsis. Add Aldactone later if BP allows. Septic Shock - resolving - secondary to aspiration pna in setting of recurrent sz - received fluid bolus, on antibiotics - 12/11: stable/improving Recurrent Sz - known seizures history, had 3 on day of admission - plans per primary service - 12/11: no further sz since admission Nonadherence to treatment plan - several notes in chart report AMA here and from [facility] - 12/11: Compliant/agreeable to plan here. Questionable Recreational Drug Use - per notes here from last year - pt denies any drug, alc, tob - UDS negative 12/11: Stable. [facility] today, start low dose GDMT. Order LifeVest pending. Plans pending [facility]. Addendum: LHC revealed distal LAD disease, possible thrombus, no other ASCVD. Vessel to small for stent or penumbra unfortunately. Will check limited ECHO with contrast to eval for LV thrombus, will check ECHO w/bubble study to r/o PFO, check BLE Venous to r/o DVT. If we confirm PFO and/or VTE will treat with DOAC. If negative PFO/VTE will treat as NSTEMI. Continue DAPT for now.
[2024-12-11] MEDS: IOPAMIDOL-370 (76%);100ML BOTTLE 50 ML IV (13:38)
--- NOTE | 2024-12-11 13:44 | EXP.ACUTE.PN ---
Subjective *Date: 12/11/24 *Time: 17:09 Interval history: Patient complaining of sore throat. No seizure activity overnight. Denies chest pain. Tolerating 3 L nasal cannula oxygen. Afebrile. Alert and interactive x 3 Medical Exam Vital signs and Labs for Last 24 Hours: Vital Signs Temp Pulse Pulse Resp BP Pulse Ox O2 Del Method 12/11/24 12:00 100 H 32 H 107/70 L 96 Nasal Cannula 12/11/24 10:00 103 H 20 106/66 L 94 L Nasal Cannula 12/11/24 09:00 101 H 28 H 115/72 93 L Nasal Cannula 12/11/24 08:00 100 H 12/11/24 08:00 104 H 24 109/71 L 96 Nasal Cannula 12/11/24 07:00 Nasal Cannula 12/11/24 07:00 103 H 30 H 106/65 L 95 Nasal Cannula 12/11/24 06:00 101 H 30 H 102/62 L 91 L Nasal Cannula 12/11/24 06:00 103 H 32 H 102/62 L 92 L Nasal Cannula 12/11/24 05:00 106 H 30 H 105/66 L 92 L Nasal Cannula 12/11/24 05:00 107 H 26 H 105/66 L 93 L Nasal Cannula 12/11/24 04:51 Nasal Cannula 12/11/24 04:06 104 H 12/11/24 04:00 103 H 93 L Nasal Cannula 12/11/24 04:00 99.3 F 100 H 24 109/70 L 94 L Nasal Cannula 12/11/24 03:11 Nasal Cannula 12/11/24 03:00 108 H 29 H 107/68 L 92 L Nasal Cannula 12/11/24 02:00 108 H 24 109/66 L 90 L Nasal Cannula 12/11/24 01:00 Nasal Cannula 12/11/24 01:00 107 H 24 103/66 L 92 L Nasal Cannula 12/11/24 00:00 104 H 91 L Nasal Cannula 12/11/24 00:00 106 H 12/11/24 00:00 99.5 F 106 H 24 102/67 L 92 L Nasal Cannula 12/10/24 23:15 Nasal Cannula 12/10/24 23:00 105 H 24 104/66 L 94 L Nasal Cannula 12/10/24 22:00 109 H 24 100/63 L 94 L Nasal Cannula 12/10/24 21:00 109 H 37 H 103/63 L 92 L Nasal Cannula 12/10/24 20:50 Nasal Cannula 12/10/24 20:00 105 H 12/10/24 20:00 105 H 38 H 96/62 L 91 L Nasal Cannula 12/10/24 20:00 108 H 94 L Nasal Cannula 12/10/24 19:00 109 H 37 H 100/64 L 92 L Nasal Cannula 12/10/24 18:50 Nasal Cannula 12/10/24 18:20 109 H 92 L Nasal Cannula 12/10/24 18:00 110 H 39 H 112/65 92 L Nasal Cannula 12/10/24 17:00 Nasal Cannula 12/10/24 17:00 111 H 35 H 108/67 L 92 L Nasal Cannula 12/10/24 16:45 109 H 37 H 93 L 12/10/24 16:30 107 H 37 H 92 L 12/10/24 16:15 111 H 92 L 12/10/24 16:00 100.4 F H 12/10/24 16:00 110 H 38 H 110/66 93 L Nasal Cannula 12/10/24 16:00 110 H 12/10/24 15:00 42 L 39 H 104/66 L 92 L Nasal Cannula 12/10/24 15:00 Nasal Cannula 12/10/24 14:26 103 H 12/10/24 14:18 104 H 33 H 100/57 L 95 Nasal Cannula O2 Flow Rate 12/11/24 12:00 3 12/11/24 10:00 3 12/11/24 09:00 4 12/11/24 08:00 12/11/24 08:00 4 12/11/24 07:00 3 12/11/24 07:00 3 12/11/24 06:00 3 12/11/24 06:00 3 12/11/24 05:00 3 12/11/24 05:00 3 12/11/24 04:51 3 12/11/24 04:06 12/11/24 04:00 3 12/11/24 04:00 3 12/11/24 03:11 3 12/11/24 03:00 3 12/11/24 02:00 3 12/11/24 01:00 3 12/11/24 01:00 3 12/11/24 00:00 3 12/11/24 00:00 12/11/24 00:00 3 12/10/24 23:15 3 12/10/24 23:00 3 12/10/24 22:00 3 12/10/24 21:00 3 12/10/24 20:50 3 12/10/24 20:00 12/10/24 20:00 3 12/10/24 20:00 3 12/10/24 19:00 3 12/10/24 18:50 3 12/10/24 18:20 3 12/10/24 18:00 4 12/10/24 17:00 4 12/10/24 17:00 4 12/10/24 16:45 12/10/24 16:30 12/10/24 16:15 12/10/24 16:00 12/10/24 16:00 4 12/10/24 16:00 12/10/24 15:00 4 12/10/24 15:00 4 12/10/24 14:26 12/10/24 14:18 4 Intake and Output 12/10/24 12/11/24 12/11/24 23:59 07:59 15:59 Intake Total 757 / 3497 210 / 210 Output Total 450 / 450 200 / 200 Balance 307 / 3047 -200 / 10 210 / 10 Intake: Intake, Oral Amount 120 / 260 210 / 210 Intake, Total IV Amount 637 / 637 Ceftriaxone Sodium 2 gm In 0.9 100 / 100 % Sodium Chloride 100 ml @ 200 mls/hr IV Q24H [facility] Rx#:[id number] Heparin Sodium,Porcine/D5w 500 37 / 37 ml @ 920 UNITS/HR 18.4 mls/hr IV .Q25H [facility] Rx#:[id number] Potassium Phos in 0.9 % NaCl 15 250 / 250 mmol In 250 ml @ 62.5 mls/hr IV ONCE ONE Rx#:[id number] Vancomycin/Water For Inj (Peg) 250 / 250 1.75 gm In 350 ml @ 175 mls/hr IV ONCE ONE Rx#:[id number] Output: Output, Urine Amount 450 / 450 200 / 200 Other: Number of Unmeasured Voids 0 2 Number of Bowel Movements 1 Weight 84.4 kg Patient Weight 12/11/24 23:59 Weight 84.4 kg Laboratory Results - last 24 hr 12/10/24 14:00: APTT 24.6 L, Troponin I 3.36 H 12/10/24 15:37: Sodium 144, Potassium 5.4 H D, Chloride 120 H, Carbon Dioxide 14 L, Anion Gap 15.4 H, BUN 82 H D, Creatinine 3.90 H D, Estimated Creat Clear 23, Estimated GFR 16 L*, Est GFR ( Amer) 19 L* D, Glucose 133 H, Lactate 1.1, Calcium 8.3 L, Phosphorus 5.8 H D, Magnesium 2.6 H D 12/10/24 18:47: Urine Color Yellow, Urine Appearance Clear, Urine pH 5.5, Ur Specific [place] 1.025, Urine Protein Negative, Urine Glucose (UA) Negative, Urine Ketones Negative, Urine Blood Negative, Urine Nitrate Negative, Urine Bilirubin 1+ A, Urine Urobilinogen 1.0, Ur Leukocyte Esterase Negative, Urine WBC Occasional, Ur Squamous Epith Cells None, Urine Bacteria Trace, Urine Opiates Screen Negative, Urine Methadone Screen Negative, Ur Barbituates Screen Negative, Ur Phencyclidine Scrn Negative, Ur Amphetamines Screen Negative, U Benzodiazepines Scrn Negative, Urine Cocaine Screen Negative, U Marijuana (THC) Screen Negative 12/10/24 21:08: APTT 83.1 H* 12/11/24 04:34: WBC 14.8 H D, RBC 4.10 L, Hgb 12.3 L D, Hct 36.0 L, MCV 87.8, MCH 30.0, MCHC 34.2, RDW 15.9, Plt Count 170, MPV 10.1, Neut % (Auto) 46.1, Lymph % (Auto) 46.3, Hughes % (Auto) 6.6, Eos % (Auto) 0.1, Baso % (Auto) 0.3, Neut # (Auto) 6.8, Lymph # (Auto) 6.8 H, Hughes # (Auto) 1.0, Eos # (Auto) 0.0, Baso # (Auto) 0.0, APTT 66.1, Sodium 131 L, Potassium 3.6 D, Chloride 101, Carbon Dioxide 24, Anion Gap 9.6, BUN 11 D, Creatinine 0.50 L D, Estimated Creat Clear 89, Estimated GFR 167, Est GFR ( Amer) 203 D, Glucose 130 H, Calcium 7.4 L, Magnesium 1.9 D, Total Bilirubin 1.4 H, AST 46, ALT 24, Alkaline Phosphatase 155 H, NT-Pro-B Natriuret Pep 56158 H, Total Protein 6.1 L, Albumin 2.8 L D, Globulin 3.3 H, Albumin/Globulin Ratio 0.8 L 12/11/24 10:55: APTT 69.7 I & O for Labs for Last 24 Hours: Intake & Output 12/08/24 12/09/24 12/10/24 12/11/24 23:59 23:59 23:59 23:59 Intake Total 3497 / 3497 210 / 210 Output Total 450 / 450 200 / 200 Balance 3047 / 3047 10 Weight 84.4 kg 84.4 kg Microbiology Reports for the Last 24 Hours: Microbiology 12/10/24 08:20 Blood Blood Culture - Preliminary NO GROWTH AFTER 24 HOURS 12/10/24 08:22 Blood Blood Culture - Preliminary NO GROWTH AFTER 24 HOURS Constitutional: Present mild distress, average body habitus, chronically ill appearing and cooperative Head: Present atraumatic and normocephalic Comment:: Moist mucous membrane, mild irritation of tonsillar pillars Respiratory: Present prolonged expiratory phase, rhonchi and crackles (Bases); Absent wheezes Cardiac: Present Reg Rate and Rhythm GI: Present soft and normal bowel sounds; Absent distention or tenderness Extremities: Present normal inspection and full ROM Skin: Present intact; Absent erythema Neuro: Present Grossly Intact, alert, awake, oriented x 3 and moves all extremities Assessment and Plan *Assessment and plan (1) Severe sepsis: Status: Acute Category: Medical Code(s): A41.9 - Sepsis, unspecified organism; R65.20 - Severe sepsis without septic shock (2) Bilateral pneumonia: Status: Acute Category: Medical Code(s): J18.9 - Pneumonia, unspecified organism (3) HFrEF (heart failure with reduced ejection fraction): Status: Acute Category: Medical Code(s): I50.20 - Unspecified systolic (congestive) heart failure (4) NSTEMI (non-ST elevated myocardial infarction): Status: Acute Category: Medical Code(s): I21.4 - Non-ST elevation (NSTEMI) myocardial infarction (5) Breakthrough seizure: Status: Acute Category: Medical Code(s): G40.919 - Epilepsy, unspecified, intractable, without status epilepticus Plan 64-year-old male with history of seizure disorder. Has had breakthrough seizures over the past 24 hours. Presents to the ER with severe sepsis. Found to have NSTEMI and bilateral pneumonia. Discussed case with ER physician, request admission. I agreed to admit to the ICU for further management. Cardiology consulted to assist with treatment of NSTEMI. Patient's condition serious. Showing slight improvement overnight. Remained hemodynamically stable with no further seizures. Will downgrade to stepdown level of care. Condition remains serious, prognosis guarded. Problems addressed as follows: Severe sepsis Bilateral pneumonia, suspected aspiration -CT per my review of bilateral pneumonia. Left is worse than right. -Continue supplemental oxygen for goal sats greater 90%. Currently on 2 L -Continue ceftriaxone 2 g daily -Sputum and blood cultures obtained -White count elevated to 14.8. Hemoglobin 12.3. Initiate nystatin 4 times a day for thrush component given sore throat -Potassium 3.6, magnesium 1.9, kidney function normal with BUN 11, creatinine 0.5. Replacing on admission. Electrolyte protocol ordered. -Repeat CBC, CMP, magnesium ordered for the morning NSTEMI Acute heart failure with reduced ejection fraction -Cardiology consulted, appreciate their assistance in care. Echo obtained showing severely reduced EF of 25% -Taken for left heart cath today. Found to have poor flow down the LAD but no stenosis necessitating stenting. Continue medical management with heparin drip. -Troponins peaked at 5.3, trended down to 3.36; continue telemetry monitoring -Heart failure appears to be new diagnosis. Cardiology recommends starting aspirin 81 mg daily, statin high intensity - consider LifeVest prior to DC - initiate entresto 24/26mg BID Seizure disorder Breakthrough seizure - known seizures history, had 3 on day of admission -Continue Keppra 1000 mg twice daily. Continue phenytoin extended release 300 mg nightly and 200 mg daily. -Seizure precautions GERD: Continue pantoprazole 40 mg nightly Full code Heparin drip Regular diet ICU/Critical care attestation This patient is critically ill with 32 minutes devoted solely to this patient managing life/organ supporting interventions that required physician assessment. This includes time spent making adjustments in ventilator settings, IV fluid administration, titration of pressors, adjustments of medications, discussion of patient with consultants and other care providers as well as updating patient and/or family (if patient by virtue of his/her condition is unable to participate in decision making). This does not include time spent performing separately billed procedures. Time is not concurrent with that of other providers.
--- NOTE | 2024-12-11 14:44 | CA_ITS ---
FINAL REPORT CLINICAL HISTORY: seizure disorder, Possible coronary thrombus FINDINGS: DUPLEX VENOUS SONOGRAPHY OF THE BILATERAL LOWER EXTREMITIES Multiple transverse and longitudinal scans were performed of the femoropopliteal deep venous systems, with augmentation and compression maneuvers. Normal phasic flow was noted in the visualized deep venous systems. No intraluminal increased echogenicity is noted to suggest thrombus. There is normal compression and augmentation of the venous structures. No abnormal venous collaterals are seen. IMPRESSION: No evidence of deep venous thrombosis of the bilateral lower extremities. Reviewed, Interpreted and Dictated by Nora Marcial MD Transcribed by Gracy Cedillo Authenticated and [facility]
--- NOTE | 2024-12-11 14:46 | CA_ITS ---
APPROVED REPORT EXAM: Limited 2D Echocardiogram with contrast Project Landscape Architect: Navya Akbar CRT Ht: 6 ft 0 in Wt: 18lbs BSA: 0.77 BP: 108/70 mmHg Indications: B/S ORDERED DEFINITY ORDERED EF ON ECHO 12/10/24 25% Echo Enhancing Agent Indication: Endocardial border delineation Agent(s) / Amount(s) Used: Agitated Saline 5 cc Definity 2 cc Comments: DEFINITY AND B/S ORDERED Poor provocation efforts from pt. Other Information Study Quality: Fair Conclusion This is a limited TTE to evaluate for presence of PFO and for evaluation of LV thrombus. Limited windows are obtained. Ultrasound enhancing agent and agitated saline are administered. The left ventricle is normal in size. There is increased LV wall thickness. The septum is asynchronous. There is moderate to severe global hypokinesis present. The distal anteroseptal and septal LV haider are severely hypokinetic. The LV apex is severely hypokinetic. LVEF is 30%. Ultrasound enhancing agent demonstrates no evidence of LV thrombus. Agitated saline administration (bubble study) demonstrates no evidence of interatrial shunt. Electronically signed by : Brook Calhoun MD 12/14/2024 23:53:39
[2024-12-11] MEDS: DEFINITY US ECHO CONTRAST 2ML INJ 2 MG IV (15:48)
[2024-12-11] MEDS: NYSTATIN SUSP 500,000 UNITS/5ML UDC 500000 UNIT PO ×2 (16:26→20:53)
--- NOTE | 2024-12-11 17:25 | PC.NURSE ---
pt resting supine in bed at this time. rhonchi noted to bilateral lungs. pt moved to stepdown from ICU around 1400. pt received a cath today through the right radial. no stenting.radial band still in place. went to remove air from band around 1530 and pt began bleeding. air replaced. began removing air again around 1630 with no bleeding. vss. pt bp soft but stable. no complaints of chest pain. no seizure activity. seizure precautions in place. venous doppler and echo completed-pending reading. pt did not eat dinner stating that he has no appetite. post ops to be completed until 2044. pt has no needs at this time. call light within reach.
[2024-12-11] MEDS: CEFTRIAXONE SODIUM 2 GM in 0.9 % SODIUM CHLORIDE 100 ML IV (18:04)
[2024-12-11] MEDS: CLOPIDOGREL 75MG TAB 75 MG PO (18:51)
[2024-12-11] MEDS: PHENYTOIN 100MG CAPSULE 300 MG PO (20:52)
[2024-12-11] MEDS: SACUBITRIL/VALSARTAN 24-26MG TABLET 1 EACH PO (20:53)
[2024-12-11] MEDS: PANTOPRAZOLE 40MG TABLET 40 MG PO (20:53)
[2024-12-11] MEDS: ATORVASTATIN 40MG TABLET 80 MG PO (20:54)
[2024-12-12] VITALS: BP 101/57; PULSE 110; PULSE 99; RESP 18; TEMP 36.8; O2SAT 96
[2024-12-12 04:00] VITALS: BP 107/61; PULSE 100; PULSE 99; RESP 18; TEMP 36.7; O2SAT 98; BMI 24.8
[2024-12-12 06:55] LABS: Basophils % 0.2 % (0.1-2.0); Eosinophils % 0.6 % (0.1-12.0); Hematocrit 33.8 % (42.0-52.0); Hemoglobin 11.5 g/dL (14.1-18.0); Lymphocytes % 39.3 % (10-50); Mean Corpuscular Hemoglobin 29.6 pg (27.0-31.2); Mean Corpuscular Volume 86.9 fl (80-94); Mean Platelet Volume 10.7 fl (7.4-10.4); Monocytes # 0.4 K/mm3 (0.1-1.0); Neutrophils # 2.6 K/mm3 (1.8-7.8); Neutrophils % 51.3 % (37.0-80.0); Platelet Count 176 K/mm3 (142-424); Red Blood Count 3.89 M/mm3 (4.60-6.20); Red Cell Distribution Width 15.9 % (11.5-17.5)
[2024-12-12 07:06] LABS: Albumin Level 2.7 g/dl (3.5-5.0); Chloride 101 mmol/L (98-107); Potassium 3.3 mmoL/L (3.5-5.1); Sodium 131 mmol/L (136-145)
[2024-12-12 07:08] LABS: Blood Urea Nitrogen 9 mg/dl (9-20); Creatinine Clearance Estimated 88 mL/min (50-200); Estimated Glomerular Filt Rate 167 ml/min (>60); GFR (African American) 203 ML/MIN (>60)
[2024-12-12 07:09] LABS: Alanine Aminotransferase 20 U/L (12-78); Albumin/Globulin Ratio 0.8 (1.1-1.8); Alkaline Phosphatase 148 U/L (38-126); Anion Gap 7.3 mEq/L (5-15); Aspartate Amino Transferase 41 U/L (17-59); Bilirubin,Total 0.8 mg/dl (0.2-1.3); Calcium 7.9 mg/dl (8.4-10.2); Carbon Dioxide 26 mmol/L (22.0-30.0); Globulin 3.3 g/dL (1.3-3.2); Glucose 99 mg/dl (74-100); Magnesium 1.8 mg/dl (1.6-2.3)
[2024-12-12 08:00] VITALS: BP 122/68; PULSE 100; RESP 18; TEMP 36.6; O2SAT 96; O2SAT 97
[2024-12-12] MEDS: ASPIRIN EC 81MG TABLET 81 MG PO (08:36)
[2024-12-12] MEDS: levETIRAcetam 500 MG TABLET 1000 MG PO (08:37)
[2024-12-12] MEDS: METOPROLOL SUCCINATE XL 25MG TABLET 25 MG PO (08:37)
[2024-12-12] MEDS: PHENYTOIN 100MG CAPSULE 200 MG PO (08:37)
[2024-12-12] MEDS: NYSTATIN SUSP 500,000 UNITS/5ML UDC 500000 UNIT PO ×2 (08:37→12:28)
[2024-12-12] MEDS: SACUBITRIL/VALSARTAN 24-26MG TABLET 1 EACH PO (08:38)
[2024-12-12] MEDS: CLOPIDOGREL 75MG TAB 75 MG PO (08:41)
[2024-12-12] MEDS: MAGNESIUM SULFATE IN WATER 2 GM/50 ML PIGGYBACK IV (09:37)
[2024-12-12] MEDS: POTASSIUM CHLORIDE 20MEQ TAB 40 MEQ PO ×2 (09:37→12:28)
--- NOTE | 2024-12-12 10:43 | EXP.DC.SUM ---
General Admission date:: 12/10/24 Discharge date: 12/12/24 HPI HPI HPI: Mr. Curiel is a 64-year-old male with history of seizure disorder for he was 3. He presented to the ER because of concern for breakthrough seizure overnight. He was brought in via EMS who states they were called to his house 3 times in the past 24 hours for seizure activity. For seizure was last night at 7 PM and has had 2 stents. He is back to baseline mentation upon arrival to the ER. Does state that he had a postictal phase and some confusion but is feeling somewhat better. Complaining of having chest pain earlier today but none at this time. States he has been sick for the past 3 to 4 months has not been feeling well overall. Noted to have pain in his left leg and worse with weightbearing and walking. Also complains of a cough and some shortness of breath. Found to be sick in the ER, necessitating 4 L oxygen. Workup in the ER concerning for bilateral pneumonia, severe sepsis, NSTEMI. Medicine consulted for admission and further management. On arrival to the ICU, patient is alert and oriented x 4. States he has not had a seizure in many months. Has been taking his medications. Denies jorge fever. Workup in the ER with normal white count of 10.7. Troponin elevated at 4.3. Kidney function normal with BUN 9, creatinine 0.6. Patient is tachycardic, tachypneic, new oxygen requirement. Chest imaging per my review with pneumonia bilaterally in lower lobes. Given his organ dysfunction and vital instability, meeting criteria for severe sepsis. Patient was given Sepsis bolus and loaded with 4 g Keppra. Administered vancomycin and Zosyn. Cultures obtained. Hospital Course Hospital Course Hospital Course: 64-year-old male with history of seizure disorder. Has had breakthrough seizures over the past 24 hours. Presents to the ER with severe sepsis. Found to have NSTEMI and bilateral pneumonia. Discussed case with ER physician, request admission. I agreed to admit to the ICU for further management. Cardiology consulted to assist with treatment of NSTEMI. Patient's condition serious on admission. Showed improvement with stabilization in the ICU. Patient had no further seizures during admission. Gradually weaned oxygen to room air. Transition to oral antibiotics to complete course of therapy. Cardiology assisted with care due to NSTEMI. Patient was taken for left heart cath, see report for full details. Stable to discharge home with further management as an outpatient. Problems addressed as follows: Severe sepsis Bilateral pneumonia, suspected aspiration -CT per my review of bilateral pneumonia. Left is worse than right. Initiated on supplemental oxygen. Maintained O2 sats and gradually weaned to room air. Initially on ceftriaxone for pneumonia. Weaned to Augmentin to complete empiric therapy for 7 days total of antibiotics. Cultures obtained, negative at time of discharge. White count elevated initially, improved with white count of 5 with hemoglobin of 11.5 on day of discharge. Overall doing well. Electrolytes and kidney function stable. Finish antibiotics as prescribed. Follow-up with PCP for further management and outpatient eval for resolution of symptoms and infection. NSTEMI Acute heart failure with reduced ejection fraction -Cardiology consulted, assisted with care during admission. Had elevation in troponin with peak at 5, trended down to 3.3. Echo was obtained showing EF 25%. Patient was taken for left heart cath during admission and found to have poor flow down the LAD but no stenosis amenable to stenting. Concern for possible CAD thrombus. Cardiology recommended medical management. Initially on heparin drip. Transitioned to dual platelet therapy with aspirin and Plavix. Because of heart failure, initiated LifeVest prior to discharge. Will initiate Entresto 24/6 mL grams to treat heart. Continue Lipitor 80 mg daily. Follow-up with cardiology as an outpatient for further evaluation. Seizure disorder Breakthrough seizure - known seizures history, had 3 on day of admission. Initiated on Keppra 1000 mg twice daily, increased from his baseline level. Was loaded with 4 g on admission. Continue phenytoin. No further seizures during admission. GERD: Continue pantoprazole 40 mg nightly Total time spent on discharge 32 minutes in counseling, documentation, chart review, and direct care with patient. Discharged with home health. Therapy evaluated and worked with patient during admission. Exam Data for Last 24 hours Vital signs and Labs for Last 24 Hours: Temp Pulse Resp BP Pulse Ox O2 Del Method O2 Flow Rate 97.9 F 100 H 18 122/68 97 Room Air 2 12/12/24 08:00 12/12/24 08:00 12/12/24 08:00 12/12/24 08:00 12/12/24 08:00 12/12/24 09:00 12/12/24 08:00 Laboratory Results - last 24 hr 12/11/24 10:55: APTT 69.7 12/12/24 05:54: WBC 5.0 D, RBC 3.89 L, Hgb 11.5 L, Hct 33.8 L, MCV 86.9, MCH 29.6, MCHC 34.0, RDW 15.9, Plt Count 176, MPV 10.7 H, Neut % (Auto) 51.3, Lymph % (Auto) 39.3, [place] % (Auto) 8.0, Eos % (Auto) 0.6, Baso % (Auto) 0.2, Neut # (Auto) 2.6, Lymph # (Auto) 2.0, [place] # (Auto) 0.4, Eos # (Auto) 0.0, Baso # (Auto) 0.0, Sodium 131 L, Potassium 3.3 L, Chloride 101, Carbon Dioxide 26, Anion Gap 7.3, BUN 9, Creatinine 0.50 L, Estimated Creat Clear 88, Estimated GFR 167, Est GFR ( Amer) 203, Glucose 99, Calcium 7.9 L, Magnesium 1.8, Total Bilirubin 0.8, AST 41, ALT 20, Alkaline Phosphatase 148 H, Total Protein 6.0 L, Albumin 2.7 L, Globulin 3.3 H, Albumin/Globulin Ratio 0.8 L I & O for Last 24 hours: Intake & Output 12/09/24 12/10/24 12/11/24 12/12/24 23:59 23:59 23:59 23:59 Intake Total 3497 / 3497 300 / 500 400 / 400 Output Total 450 / 450 500 / 900 400 / 400 Balance 3047 / 3047 -200 / -400 0 / 0 Weight 84.4 kg 83.461 kg 83.286 kg Microbiology Reports for the Last 24 Hours: Microbiology 12/10/24 08:20 Blood Blood Culture - Preliminary NO GROWTH AFTER 48 HOURS 12/10/24 08:22 Blood Blood Culture - Preliminary NO GROWTH AFTER 48 HOURS 12/10/24 07:15 Sputum - Expectorated Sputum Gram Stain - Final Constitutional Constitutional: no acute distress, average body habitus, chronically ill appearing and cooperative *Routine HEENT Exam Head: Present normocephalic and atraumatic Eye: Present PERRL ENT: Present mucous membranes moist *Routine Neck Exam Neck: Present supple *Routine Respiratory Exam Respiratory: Present CTA bilaterally; Absent accessory muscle use, wheezes or crackles *Routine Cardiovascular Exam Cardiovascular: Present RRR, Normal S1 and Normal S2 *Routine Abdominal Exam Abdominal: Present soft and normoactive bowel sounds; Absent tenderness *Routine Rectal Exam Patient deferred: visual exam *Routine Exam Patient deferred: penile exam *Routine Extremities Exam Extremities: Present pulses intact; Absent cyanosis or edema *Routine Skin Exam Skin: Present intact; Absent erythema or wounds *Routine Neurological Exam Neurological: Present alert, oriented X3 and moving all extremities; Absent altered mental status Routine Psychiatric Exam Psychiatric: Present cooperative Results Data Completed and Pending Labs on day of discharge: Labs from last 24 hours 12/12/24 12/11/24 05:54 10:55 WBC 5.0 D RBC 3.89 L Hgb 11.5 L Hct 33.8 L MCV 86.9 MCH 29.6 MCHC 34.0 RDW 15.9 Plt Count 176 MPV 10.7 H Neut % (Auto) 51.3 Lymph % (Auto) 39.3 [place] % (Auto) 8.0 Eos % (Auto) 0.6 Baso % (Auto) 0.2 Neut # (Auto) 2.6 Lymph # (Auto) 2.0 [place] # (Auto) 0.4 Eos # (Auto) 0.0 Baso # (Auto) 0.0 APTT 69.7 Sodium 131 L Potassium 3.3 L Chloride 101 Carbon Dioxide 26 Anion Gap 7.3 BUN 9 Creatinine 0.50 L Estimated Creat Clear 88 Estimated GFR 167 Est GFR ( Amer) 203 Glucose 99 Calcium 7.9 L Magnesium 1.8 Total Bilirubin 0.8 AST 41 ALT 20 Alkaline Phosphatase 148 H Total Protein 6.0 L Albumin 2.7 L Globulin 3.3 H Albumin/Globulin Ratio 0.8 L Preliminary micro results at discharge 12/10/24 08:20 Blood Culture - Preliminary Blood NO GROWTH AFTER 48 HOURS 12/10/24 08:22 Blood Culture - Preliminary Blood NO GROWTH AFTER 48 HOURS DS: Diagnosis Discharge Diagnosis (1) Severe sepsis: Status: Acute Code(s): A41.9 - Sepsis, unspecified organism; R65.20 - Severe sepsis without septic shock (2) Bilateral pneumonia: Status: Acute Code(s): J18.9 - Pneumonia, unspecified organism (3) HFrEF (heart failure with reduced ejection fraction): Status: Acute Code(s): I50.20 - Unspecified systolic (congestive) heart failure (4) NSTEMI (non-ST elevated myocardial infarction): Status: Acute Code(s): I21.4 - Non-ST elevation (NSTEMI) myocardial infarction (5) Breakthrough seizure: Status: Acute Code(s): G40.919 - Epilepsy, unspecified, intractable, without status epilepticus Meds Home Medications and Allergies Home Medications ?Medication ?Instructions ?Recorded ?Confirmed ?Type diazepam 10 mg tablet 10 mg PO BIDP PRN Seizures 09/16/23 12/10/24 History phenytoin sodium extended 100 mg 200 mg PO DAILY 09/16/23 12/10/24 History capsule phenytoin sodium extended 100 mg 300 mg PO HS 09/16/23 12/10/24 History capsule pantoprazole 40 mg tablet,delayed 40 mg PO BID #30 tabs 09/19/23 12/10/24 Rx release (Protonix) amoxicillin 875 mg-potassium 1 tab PO BID 4 days #8 tabs 12/12/24 Rx clavulanate 125 mg tablet aspirin 81 mg tablet,delayed 81 mg PO DAILY 30 days #30 tabs 12/12/24 Rx release atorvastatin 40 mg tablet 80 mg (2 x 40 mg) PO HS 30 days 12/12/24 Rx #60 tabs clopidogrel 75 mg tablet 75 mg PO DAILY 30 days #30 tabs 12/12/24 Rx levetiracetam 500 mg tablet 1,000 mg (2 x 500 mg) PO BID 30 12/12/24 Rx (Keppra) days #120 tabs metoprolol succinate 25 mg 25 mg PO DAILY 30 days #30 tabs 12/12/24 Rx tablet,extended release 24 hr sacubitril 24 mg-valsartan 26 mg 1 tab PO BID 30 days #60 tabs 12/12/24 Rx tablet (Entresto) New Prescriptions to Start Prescriptions: amoxicillin-pot clavulanate Warren Bright aspirin Deangelo,Warren atorvastatin Deangelo,Warren clopidogrel Warren Bright levetiracetam [Keppra] Warren Bright metoprolol succinate Warren Bright sacubitril-valsartan [Entresto] Warren Bright Allergies Allergy/AdvReac Type Severity Reaction Status Date / Time phenobarbital Allergy Severe Swelling Verified 12/10/24 11:41 of Lip/Tongue/Throat Discharge Plan Disposition Patient Disposition: Home Health Service Condition: Fair Discharge Order Discharge Orders: Discharge Order (Routine); Ordered 12/12/24 Ordered By: Warren Bright Follow up Plan Follow up with: Rowena Bourne [Primary Care Provider] - 12/25/24 10:30 am Rajesh Calhoun MD [Staff Physician] - 12/24/24 3:00 pm Prescriptions/Medication Reconciliation: New levetiracetam [Keppra] 500 mg Tablet 1,000 mg PO BID 30 Days Qty: 120 0RF metoprolol succinate 25 mg Tablet Extended Release 24 Hr 25 mg PO DAILY 30 Days Qty: 30 0RF sacubitril-valsartan [Entresto] 24-26 mg Tablet 1 tab PO BID 30 Days Qty: 60 0RF atorvastatin 40 mg Tablet 80 mg PO HS 30 Days Qty: 60 0RF clopidogrel 75 mg Tablet 75 mg PO DAILY 30 Days Qty: 30 0RF aspirin 81 mg Tablet,Delayed Release (Dr/Ec) 81 mg PO DAILY 30 Days Qty: 30 0RF amoxicillin-pot clavulanate 875-125 mg tablet 1 tab PO BID 4 Days Qty: 8 0RF Rx Instructions: first dose morning of 12/13/24 Continued diazepam 10 mg tablet 10 mg PO BIDP PRN (Reason: Seizures) Patient Comments: TAKE 1 TABLET BY MOUTH TWICE DAILY NEEDED FOR ACUTE SEIZURES phenytoin sodium extended 100 mg capsule 300 mg PO HS Patient Comments: TAKE 2 CAPSULES BY MOUTH IN THE MORNING AND 3 CAPSULES IN THE EVENING phenytoin sodium extended 100 mg capsule 200 mg PO DAILY Patient Comments: TAKE 2 CAPSULES BY MOUTH IN THE MORNING AND 3 CAPSULES IN THE EVENING pantoprazole [Protonix] 40 mg tablet,delayed release (DR/EC) 40 mg PO BID Qty: 30 0RF Discontinued levetiracetam 500 mg tablet 500 mg PO DAILY Patient Comments: TAKE 1 TABLET BY MOUTH IN THE MORNING AND 2 TABLETS IN THE EVENING levetiracetam 500 mg tablet 1,000 mg PO HS Problem Reconciliation Problems Reviewed?: Yes Patient Discharge Instructions ACTIVITY: Continue current activity DIET: continue same diet Patient Instructions: DI for Heart Attack, DI for Pneumonia -- Adult, DI for Sepsis -- Adult Print Language: Serbian Providers Primary Care Provider: Rowena Bourne Admit Provider: Warren Bright Attending Provider: Warren Bright
--- NOTE | 2024-12-12 11:06 | CARE MANAGER ---
Current Medications Acetaminophen (Acetaminophen 325mg Tab) 650 mg PO Q4HP PRN PRN Reason: Fever or Mild Pain (1-3) Stop: 01/09/25 10:57 Aspirin (Aspirin Ec 81mg Tablet) 81 mg PO DAILY DELMY Stop: 01/09/25 13:29 Last Admin: 12/12/24 08:36 Dose: 81 mg Atorvastatin Calcium (Atorvastatin 40mg Tablet) 80 mg PO HS DELMY Stop: 01/09/25 20:59 Last Admin: 12/11/24 20:54 Dose: 80 mg Clopidogrel Bisulfate (Clopidogrel 75mg Tab) 75 mg PO DAILY DELMY Stop: 01/10/25 18:44 Last Admin: 12/12/24 08:41 Dose: 75 mg Diazepam (Diazepam 5mg Tablet) 10 mg PO BIDP PRN PRN Reason: Seizures Stop: 01/09/25 11:12 Ceftriaxone Sodium 2 gm/ (Sodium Chloride) 100 mls @ 200 mls/hr IV Q24H DELMY Stop: 12/20/24 18:59 Last Admin: 12/11/24 18:04 Dose: 200 mls/hr Sodium Chloride (Sod Chloride 0.9% 500ml Bag) 1,000 mls @ 25 mls/hr IV .Q25H DELMY Stop: 12/12/24 12:13 Last Admin: 12/11/24 13:02 Dose: 25 mls/hr Levetiracetam (Levetiracetam 500 Mg Tablet) 1,000 mg PO BID DELMY Stop: 01/09/25 20:59 Last Admin: 12/12/24 08:37 Dose: 1,000 mg Metoprolol Succinate (Metoprolol Succinate Xl 25mg Tablet) 25 mg PO DAILY DELMY Stop: 01/11/25 08:59 Last Admin: 12/12/24 08:37 Dose: 25 mg Nystatin (Nystatin Susp 500,000 Units/5ml Udc) 500,000 unit PO QID DELMY Stop: 01/10/25 12:59 Last Admin: 12/12/24 08:37 Dose: 500,000 unit Pantoprazole Sodium (Pantoprazole 40mg Tablet) 40 mg PO HS DELMY Stop: 01/09/25 20:59 Last Admin: 12/11/24 20:53 Dose: 40 mg Phenytoin Sodium (Phenytoin 100mg Capsule) 300 mg PO HS DELMY Stop: 01/09/25 20:59 Last Admin: 02/20/25 20:52 Dose: 300 mg Phenytoin Sodium (Phenytoin 100mg Capsule) 200 mg PO DAILY [facility] Stop: 01/10/25 08:59 Last Admin: 12/12/24 08:37 Dose: 200 mg Potassium Chloride (Potassium Chloride 20meq Tab) 40 meq PO Q4H DELMY Stop: 12/12/24 13:16 Last Admin: 12/12/24 09:37 Dose: 40 meq Sacubitril/Valsartan (Sacubitril/Valsartan 24-26mg Tablet) 1 each PO BID [facility] Stop: 01/10/25 20:59 Last Admin: 12/12/24 08:38 Dose: 1 each Sodium Chloride (Sodium Chloride 0.9% 10ml Flush Syringe) 10 ml IV NEEDED PRN PRN Reason: Maintain IV Site Stop: 01/09/25 13:29 Sodium Chloride (Sodium Chloride 3% 15ml Neb) 3 ml IH ONCE PRN PRN Reason: INDUCE SPUTUM [employer]LECTION Stop: 01/09/25 13:31 Last Admin: 12/10/24 14:25 Dose: 3 ml Tetracycl/Hydrocort/Nystatin/Diphen (Magic Mouthwash 300ml Bottle) 15 ml PO Q6HP PRN PRN Reason: Mouth Irritation Stop: 01/10/25 11:05
--- NOTE | 2024-12-12 11:06 | CARE MANAGER ---
Laboratory Results - last 72 hr 12/10/24 12/10/24 12/10/24 08:07 08:09 08:20 WBC 10.7 RBC 4.84 Hgb 14.6 Hct 42.2 MCV 87.2 MCH 30.2 MCHC 34.6 RDW 15.9 Plt Count 215 MPV 10.4 Neut % (Auto) 45.5 Lymph % (Auto) 46.1 [place] % (Auto) 7.5 Eos % (Auto) 0.4 Baso % (Auto) 0.3 Neut # (Auto) 4.9 Lymph # (Auto) 4.9 H [place] # (Auto) 0.8 Eos # (Auto) 0.0 Baso # (Auto) 0.0 PT 10.4 INR 0.94 APTT VBG pH 7.44 H VBG pCO2 30.9 L VBG pO2 42.6 H VBG HCO3 20.7 L VBG Total CO2 21.7 L VBG O2 Saturation 81.9 H VBG Base Excess -3.4 L VBG Lactic Acid 3.4 H Sodium 135 L Potassium 3.7 Chloride 105 Carbon Dioxide 21 L Anion Gap 12.7 BUN 9 Creatinine 0.60 L Estimated Creat Clear Estimated GFR 136 Est GFR ( Amer) 164 Glucose 137 H Lactate Calcium 8.1 L Phosphorus 1.8 L Magnesium 1.3 L Total Bilirubin 0.9 AST 49 ALT 30 Alkaline Phosphatase 284 H Total Creatine Kinase 127 Troponin I 4.33 H NT-Pro-B Natriuret Pep 2010 H Total Protein 7.6 Albumin 3.5 Globulin 4.1 H Albumin/Globulin Ratio 0.9 L Lipase 80 TSH 1.34 Thyroxine (T4) 7.9 Urine Color Cancelled Urine Appearance Cancelled Urine pH Cancelled Ur Specific [place] Cancelled Urine Protein Cancelled Urine Glucose (UA) Cancelled Urine Ketones Cancelled Urine Blood Cancelled Urine Nitrate Cancelled Urine Bilirubin Cancelled Urine Urobilinogen Cancelled Ur Leukocyte Esterase Cancelled Urine RBC Cancelled Urine WBC Cancelled Ur Squamous Epith Cells Cancelled Ur Transition Epith Cell Cancelled Ur Renal Epithelial Cell Cancelled Calcium Carbonate Cryst Cancelled Calcium Phosphate Cryst Cancelled Calcium Oxalate Crystal Cancelled Cystine Crystals Cancelled Uric Acid Crystals Cancelled Triple Phos Crystals Cancelled Tyrosine Crystals Cancelled Other Crystals Cancelled Amorphous Sediment Cancelled Other Sediment Cancelled Urine Bacteria Cancelled Fatty Casts Cancelled Hyaline Casts Cancelled Fine Granular Casts Cancelled Coarse Granular Casts Cancelled Waxy Casts Cancelled RBC Casts Cancelled WBC Casts Cancelled Other Casts Cancelled Urine Mucus Cancelled Urine Trichomonas Cancelled Urine Yeast Cancelled Urine Sperm Cancelled Urine Opiates Screen Urine Methadone Screen Ur Barbituates Screen Phenytoin 14.1 Ur Phencyclidine Scrn Ur Amphetamines Screen U Benzodiazepines Scrn Urine Cocaine Screen U Marijuana (THC) Screen SARS-CoV-2 (PCR) Not detected HCV Ab SHERRI w/Rflx PCR Qn Negative HIV Ag/Ab Combo Qual Negative Influenza A Untype (PCR) Not detected Influenza Type B (PCR) Not detected 12/10/24 12/10/24 12/10/24 11:57 12:47 14:00 WBC RBC Hgb Hct MCV MCH MCHC RDW Plt Count MPV Neut % (Auto) Lymph % (Auto) [place] % (Auto) Eos % (Auto) Baso % (Auto) Neut # (Auto) Lymph # (Auto) [place] # (Auto) Eos # (Auto) Baso # (Auto) PT INR APTT 24.6 L VBG pH VBG pCO2 VBG pO2 VBG HCO3 VBG Total CO2 VBG O2 Saturation VBG Base Excess VBG Lactic Acid Sodium Potassium Chloride Carbon Dioxide Anion Gap BUN Creatinine Estimated Creat Clear Estimated GFR Est GFR ( Amer) Glucose Lactate 3.1 H Calcium Phosphorus Magnesium Total Bilirubin AST ALT Alkaline Phosphatase Total Creatine Kinase Troponin I 5.31 H 3.36 H NT-Pro-B Natriuret Pep Total Protein Albumin Globulin Albumin/Globulin Ratio Lipase TSH Thyroxine (T4) Urine Color Urine Appearance Urine pH Ur Specific [place] Urine Protein Urine Glucose (UA) Urine Ketones Urine Blood Urine Nitrate Urine Bilirubin Urine Urobilinogen Ur Leukocyte Esterase Urine RBC Urine WBC Ur Squamous Epith Cells Ur Transition Epith Cell Ur Renal Epithelial Cell Calcium Carbonate Cryst Calcium Phosphate Cryst Calcium Oxalate Crystal Cystine Crystals Uric Acid Crystals Triple Phos Crystals Tyrosine Crystals Other Crystals Amorphous Sediment Other Sediment Urine Bacteria Fatty Casts Hyaline Casts Fine Granular Casts Coarse Granular Casts Waxy Casts RBC Casts WBC Casts Other Casts Urine Mucus Urine Trichomonas Urine Yeast Urine Sperm Urine Opiates Screen Urine Methadone Screen Ur Barbituates Screen Phenytoin Ur Phencyclidine Scrn Ur Amphetamines Screen U Benzodiazepines Scrn Urine Cocaine Screen U Marijuana (THC) Screen SARS-CoV-2 (PCR) HCV Ab SHERRI w/Rflx PCR Qn HIV Ag/Ab Combo Qual Influenza A Untype (PCR) Influenza Type B (PCR) 12/10/24 12/10/24 12/10/24 15:37 18:47 21:08 WBC RBC Hgb Hct MCV MCH MCHC RDW Plt Count MPV Neut % (Auto) Lymph % (Auto) [place] % (Auto) Eos % (Auto) Baso % (Auto) Neut # (Auto) Lymph # (Auto) [place] # (Auto) Eos # (Auto) Baso # (Auto) PT INR APTT 83.1 H* VBG pH VBG pCO2 VBG pO2 VBG HCO3 VBG Total CO2 VBG O2 Saturation VBG Base Excess VBG Lactic Acid Sodium 144 Potassium 5.4 H D Chloride 120 H Carbon Dioxide 14 L Anion Gap 15.4 H BUN 82 H D Creatinine 3.90 H D Estimated Creat Clear 23 Estimated GFR 16 L* Est GFR ( Amer) 19 L* D Glucose 133 H Lactate 1.1 Calcium 8.3 L Phosphorus 5.8 H D Magnesium 2.6 H D Total Bilirubin AST ALT Alkaline Phosphatase Total Creatine Kinase Troponin I NT-Pro-B Natriuret Pep Total Protein Albumin Globulin Albumin/Globulin Ratio Lipase TSH Thyroxine (T4) Urine Color Yellow Urine Appearance Clear Urine pH 5.5 Ur Specific [place] 1.025 Urine Protein Negative Urine Glucose (UA) Negative Urine Ketones Negative Urine Blood Negative Urine Nitrate Negative Urine Bilirubin 1+ A Urine Urobilinogen 1.0 Ur Leukocyte Esterase Negative Urine RBC Urine WBC Occasional Ur Squamous Epith Cells None Ur Transition Epith Cell Ur Renal Epithelial Cell Calcium Carbonate Cryst Calcium Phosphate Cryst Calcium Oxalate Crystal Cystine Crystals Uric Acid Crystals Triple Phos Crystals Tyrosine Crystals Other Crystals Amorphous Sediment Other Sediment Urine Bacteria Trace Fatty Casts Hyaline Casts Fine Granular Casts Coarse Granular Casts Waxy Casts RBC Casts WBC Casts Other Casts Urine Mucus Urine Trichomonas Urine Yeast Urine Sperm Urine Opiates Screen Negative Urine Methadone Screen Negative Ur Barbituates Screen Negative Phenytoin Ur Phencyclidine Scrn Negative Ur Amphetamines Screen Negative U Benzodiazepines Scrn Negative Urine Cocaine Screen Negative U Marijuana (THC) Screen Negative SARS-CoV-2 (PCR) HCV Ab SHERRI w/Rflx PCR Qn HIV Ag/Ab Combo Qual Influenza A Untype (PCR) Influenza Type B (PCR) 12/11/24 12/11/24 12/12/24 04:34 10:55 05:54 WBC 14.8 H D 5.0 D RBC 4.10 L 3.89 L Hgb 12.3 L D 11.5 L Hct 36.0 L 33.8 L MCV 87.8 86.9 MCH 30.0 29.6 MCHC 34.2 34.0 RDW 15.9 15.9 Plt Count 170 176 MPV 10.1 10.7 H Neut % (Auto) 46.1 51.3 Lymph % (Auto) 46.3 39.3 [place] % (Auto) 6.6 8.0 Eos % (Auto) 0.1 0.6 Baso % (Auto) 0.3 0.2 Neut # (Auto) 6.8 2.6 Lymph # (Auto) 6.8 H 2.0 [place] # (Auto) 1.0 0.4 Eos # (Auto) 0.0 0.0 Baso # (Auto) 0.0 0.0 PT INR APTT 66.1 69.7 VBG pH VBG pCO2 VBG pO2 VBG HCO3 VBG Total CO2 VBG O2 Saturation VBG Base Excess VBG Lactic Acid Sodium 131 L 131 L Potassium 3.6 D 3.3 L Chloride 101 101 Carbon Dioxide 24 26 Anion Gap 9.6 7.3 BUN 11 D 9 Creatinine 0.50 L D 0.50 L Estimated Creat Clear 89 88 Estimated GFR 167 167 Est GFR ( Amer) 203 D 203 Glucose 130 H 99 Lactate Calcium 7.4 L 7.9 L Phosphorus Magnesium 1.9 D 1.8 Total Bilirubin 1.4 H 0.8 AST 46 41 ALT 24 20 Alkaline Phosphatase 155 H 148 H Total Creatine Kinase Troponin I NT-Pro-B Natriuret Pep 47948 H Total Protein 6.1 L 6.0 L Albumin 2.8 L D 2.7 L Globulin 3.3 H 3.3 H Albumin/Globulin Ratio 0.8 L 0.8 L Lipase TSH Thyroxine (T4) Urine Color Urine Appearance Urine pH Ur Specific [place] Urine Protein Urine Glucose (UA) Urine Ketones Urine Blood Urine Nitrate Urine Bilirubin Urine Urobilinogen Ur Leukocyte Esterase Urine RBC Urine WBC Ur Squamous Epith Cells Ur Transition Epith Cell Ur Renal Epithelial Cell Calcium Carbonate Cryst Calcium Phosphate Cryst Calcium Oxalate Crystal Cystine Crystals Uric Acid Crystals Triple Phos Crystals Tyrosine Crystals Other Crystals Amorphous Sediment Other Sediment Urine Bacteria Fatty Casts Hyaline Casts Fine Granular Casts Coarse Granular Casts Waxy Casts RBC Casts WBC Casts Other Casts Urine Mucus Urine Trichomonas Urine Yeast Urine Sperm Urine Opiates Screen Urine Methadone Screen Ur Barbituates Screen Phenytoin Ur Phencyclidine Scrn Ur Amphetamines Screen U Benzodiazepines Scrn Urine Cocaine Screen U Marijuana (THC) Screen SARS-CoV-2 (PCR) HCV Ab SHERRI w/Rflx PCR Qn HIV Ag/Ab Combo Qual Influenza A Untype (PCR) Influenza Type B (PCR)
--- NOTE | 2024-12-12 11:32 | P.PN_ITS ---
Subjective Subjective Date: 12/12/24 Time: 10:00 Interval history: No events overnight. Today he has some ongoing chest discomfort which is pleuritic and substernal, worse with deep breathing and chest wall palpation. He is stable on room air, no orthopnea or lower extremity edema. Exam Data for Last 24 hours Vital signs and Labs for Last 24 Hours: Temp Pulse Resp BP Pulse Ox O2 Del Method O2 Flow Rate 97.9 F 100 H 18 122/68 97 Room Air 2 12/12/24 08:00 12/12/24 08:00 12/12/24 08:00 12/12/24 08:00 12/12/24 08:00 12/12/24 09:00 12/12/24 08:00 Laboratory Results - last 24 hr 12/11/24 10:55: APTT 69.7 12/12/24 05:54: WBC 5.0 D, RBC 3.89 L, Hgb 11.5 L, Hct 33.8 L, MCV 86.9, MCH 29.6, MCHC 34.0, RDW 15.9, Plt Count 176, MPV 10.7 H, Neut % (Auto) 51.3, Lymph % (Auto) 39.3, [place] % (Auto) 8.0, Eos % (Auto) 0.6, Baso % (Auto) 0.2, Neut # (Auto) 2.6, Lymph # (Auto) 2.0, [place] # (Auto) 0.4, Eos # (Auto) 0.0, Baso # (Auto) 0.0, Sodium 131 L, Potassium 3.3 L, Chloride 101, Carbon Dioxide 26, Anion Gap 7.3, BUN 9, Creatinine 0.50 L, Estimated Creat Clear 88, Estimated GFR 167, Est GFR ( Amer) 203, Glucose 99, Calcium 7.9 L, Magnesium 1.8, Total Bilirubin 0.8, AST 41, ALT 20, Alkaline Phosphatase 148 H, Total Protein 6.0 L, Albumin 2.7 L, Globulin 3.3 H, Albumin/Globulin Ratio 0.8 L I & O for Last 24 hours: Intake & Output 12/09/24 12/10/24 12/11/24 12/12/24 23:59 23:59 23:59 23:59 Intake Total 3497 / 3497 300 / 500 400 / 400 Output Total 450 / 450 500 / 900 400 / 400 Balance 3047 / 3047 -200 / -400 0 / 0 Weight 186 lb 1.122 oz 184 lb 183 lb 9.827 oz Microbiology Reports for the Last 24 Hours: Microbiology 12/10/24 17:55 Anus CRE Surveillance Culture - Final Negative 12/10/24 08:20 Blood Blood Culture - Preliminary NO GROWTH AFTER 48 HOURS 12/10/24 08:22 Blood Blood Culture - Preliminary NO GROWTH AFTER 48 HOURS 12/10/24 07:15 Sputum - Expectorated Sputum Gram Stain - Final Constitutional Constitutional: no acute distress and cooperative *Routine HEENT Exam Eye: Present PERRL *Routine Respiratory Exam Respiratory: Present CTA bilaterally; Absent accessory muscle use, wheezes or crackles *Routine Cardiovascular Exam Cardiovascular: Present RRR, Normal S1 and Normal S2; Absent murmur, gallop or rubs *Routine Abdominal Exam Abdominal: Present soft; Absent tenderness *Routine Extremities Exam Extremities: Present pulses intact; Absent cyanosis or edema *Routine Skin Exam Skin: Present intact; Absent erythema or wounds *Routine Neurological Exam Neurological: Present alert and oriented X3 Routine Psychiatric Exam Psychiatric: Present cooperative Progress Note: A&P Assessment and plan (1) Severe sepsis: Status: Acute (2) Bilateral pneumonia: Status: Acute (3) HFrEF (heart failure with reduced ejection fraction): Status: Acute (4) NSTEMI (non-ST elevated myocardial infarction): Status: Acute (5) Breakthrough seizure: Status: Acute Assessment and Plan Assessment and Plan for All Diagnoses:: NSTEMI - new dx this admission with atypical angina, trop 4.3 then 5.3, EF 25% with WMA along LAD distribution - pt is currently symptom free and has no ST elevations on EKG - start ASA, statin, and Heparin drip - no BB/ARB due to hypotension/septic shock - will wait on [facility] until sz controlled and PNA improved - plan for predischarge [facility] - 12/11: Trop trended down. Mild ongoing CP. No further sz. Resp stable. Pt agreeable to [facility] today. - 12/12: LHC revealed distal LAD thrombus - vessel too small for intervention. Bubble study neg for PFO and Contrasted ECHO neg for LV thrombus. Home with DAPT, BB, Statin. HFrEF/ICM - new dx this admission with EF 25% with severe global hypokinesis, akinetic LV apex, septal, anteroseptal, and inferoseptal LV haider nearly akinetic - appears euvolemic on exam and imaging - GDMT on hold due to hypotension/septic shock - LHC revealed distal LAD thrombus, non amenable - 12/11: Euvolemic, no orthopnea. Pt agreeable to LifeVest. BP stable off pressors. Add Entresto and Toprol low dose. No SGLT2 with sepsis. Add Aldactone later if BP allows. - 12/12: LAD thrombus nonamenable. No LV thrombus noted on ECHO w/definity. Pt remains euvolemic, tolerating Entresto, Toprol. Awaiting LifeVest. Septic Shock - resolving - secondary to aspiration pna in setting of recurrent sz - received fluid bolus, on antibiotics - 12/11: stable/improving Recurrent Sz - known seizures history, had 3 on day of admission - plans per primary service - 12/11: no further sz since admission Nonadherence to treatment plan - several notes in chart report AMA here and from [facility] - 12/11: Compliant/agreeable to plan here. Questionable Hx of Recreational Drug Use - per notes here from last year - pt denies any drug, alc, tob - UDS negative 12/12: Pt is CV stable for discharge home with ARASH Pretty. He needs office visit with us 2 weeks. CV DC Meds: Aspirin 81 mg 1 p.o. daily Plavix 75 mg 1 p.o. daily Rosuvastatin 20 mg 1 p.o. nightly Toprol-XL 25 mg 1 p.o. daily Entresto 24-26 mg 1 p.o. daily *No Aldactone due to low blood pressure, no SGLT2 due to acute illness-will address these later as an outpatient.
--- NOTE | 2024-12-12 11:42 | HMH.PTEV ---
Physical Therapy Evaluation Rehab PT IP Evaluation Start: 12/11/24 19:11 Freq: ONCE Status: Active Protocol: Document 12/12/24 08:25 GNEARO (Rec: 12/12/24 11:42 PHORODOLFO [id number]) Subjective/History History History 64-year-old male with history of seizure disorder, adm to [facility] after multiple breakthrough seizures at home. Required intubation due to respiratory status and only recently extubated. Now much more alert and oriented. He reports he lives with spouse, 1 step to enter the home, and he is generally independent with ambulation using a cane at baseline. He also has a RW available if needed. Subjective Subjective Currently his only c/o is sore throat after intubation, he readily agrees to OOB mobility assessment. New diagnosis of cancer in past 12 No months? Rehab PT IP Eval Objective Appearance Patient Behavior Appropriate Patient Orientation Person,Place,Time Difficulty following instructions none Speech Pattern Clear Ambulation Patient Able to Ambulate Yes Ambulation Observation IP General Gait Pattern Observation Shuffling Step Ambulation Distance (feet) 5 Ambulation Assistive Device None Ambulation Ability Minimal x 1 (25% assist) Balance Ability to Arise Able, uses arms to help Sitting Balance Steady, safe Standing Balance Steady, wide stance Dynamic Standing Balance Ability Fair Transfers Bed Transfer Ability Minimal x 1 (25% assist) Chair Transfer Ability Contact Guard/Hand Hold Sit to Stand Bed Transfer Ability Contact Guard/Hand Hold Sit to Stand Chair Transfer Ability Contact Guard/Hand Hold Rehab PT IP prob,goals,plan Problems Date of Evaluation: 12/12/24 PT IP Problems Bed Mobility,Transfers,Gait Rehab Potential Rehab Potential Good Plan PT Intervention Plan Bed Mobility,Transfers,Gait, Therapeutic Exercise PT Plan Frequency Daily Duration LOS Discharge Goals Bed Transfer Ability Contact Guard/Hand Hold Sit to Stand Chair Transfer Ability Supervision/Stand by Ambulation Distance (feet) 10 Discharge Plan PT Discharge Plan Pt is currently appropriate to return home once medically stable for d/c. Skilled therapy is indicated to improve transfers and ambulation in order to return pt to [facility]. Eval Complexity Eval Charge Codes 59359 - High Complexity PHYSICIAN CERTIFICATION: I certify the specified therapy services for Manuel Curiel are required, authorized, and reviewed every 30 days.
--- NOTE | 2024-12-12 11:48 | SW/DCPLANNER ---
Spoke with patient about home health services. Patient stated that he doesnt need home health services that he has his there to help him out. Laura Moctezuma
[2024-12-12 12:00] VITALS: BP 114/65; PULSE 98; RESP 20; TEMP 36.4; O2SAT 98
--- NOTE | 2024-12-12 12:39 | HMH.OTEV ---
OT Inpatient Evaluation Rehab OT IP Evaluation Start: 12/11/24 19:11 Freq: ONCE Status: Active Protocol: Document 12/12/24 12:35 [facility] (Rec: 12/12/24 12:38 [facility] [id number]) Rehab OT IP Assessment Subjective History 64-year-old male with history of seizure disorder, adm to [facility] after multiple breakthrough seizures at home. Required intubation due to respiratory status and only recently extubated. Now much more alert and oriented. He reports he lives with spouse, 1 step to enter the home, and he is generally independent with functional transfers using a cane at baseline. He also has a RW available if needed. Pt claims normally his does assist with ADLs such as dressing and bathing. Pt is independent with feeding. Pt is dependent upon for completion of all IADLs. He no longer drives. Subjective Pt oriented x 3 on arrival. Pt in restroom requesting assistance with toileting hygiene on arrival. Objective Patient Orientation Person,Place,Birthday Right Upper Extremity Gross ROM WFL Left Upper Extremity Gross ROM WFL Bed Mobility bed mobility-scooting,bed mobility - supine/sit Assist Level Contact Guard/Hand Hold Transfer Training Sit/Stand Transfer Assist Level Minimal x 1 (25% assist) Lower Body Dressing Ability Moderate Assistance Performing Toilet Hygiene Ability Moderate Assistance Overall Commode/Toilet Transfer Ability Contact Guard Commode/Toilet Transfer Technique Sit to/from Ambulatory Rehab OT IP prob,goals,plan Problems Date of Evaluation: 12/12/24 OT IP Problems Bed Mobility,Transfers,Balance ,Self care,Safety Rehab Potential Rehab Potential Good Equipment Needs Assistive Devices Rolling / Wheeled Walker Plan OT intervention Plan Bed Mobility,Transfers,Balance ,Self care,Safety,Therapeutic Exercise OT Plan Frequency Daily Duration LOS Discharge Goals Bed Mobility Ability Standby Assistance Sit to Stand Chair Transfer Ability Supervision/Stand by,Contact Guard/Hand Hold Chair Transfer Ability Supervision/Stand by Chair Transfer Technique Sit to/from Ambulatory Chair Transfer Assistive Devices Rolling Walker Feeding Ability Assist with Tray Set Up Lower Body Dressing Ability Minimal Assistance Upper Body Dressing Ability Standby Assistance Bathing Ability Minimal Assistance Performing Toilet Hygiene Ability Minimal Assistance Overall Commode/Toilet Transfer Ability Standby Assistance Commode/Toilet Transfer Technique Sit to/from Ambulatory Commode/Toilet Transfer Assistive Grab Bars Devices Oral Care Assist Standby Assistance Discharge Plan OT Discharge Plan Pt will continue to be seen for OT services while at [facility]. Pt can return home with ' s assistance 14/05 once he is medically stable per physician . Therapist does recommend OT evaluation to continue with skilled therapy upon discharge. Eval Complexity Eval Charge Codes 58693 - Moderate Complexity PHYSICIAN CERTIFICATION: I certify the specified therapy services for Manuel Curiel are required, authorized, and reviewed every 30 days.
[2024-12-12 13:00] VITALS: BP 114/65; PULSE 98; RESP 20; TEMP 36.4; O2SAT 98
--- NOTE | 2024-12-15 10:12 | SW/DCPLANNER ---
Spoke with patients . Patients stated that he is doing well. Patients stated that he is up eating a little. Patients stated that they are aware of his upcoming appointments. Patients stated that they were able to get his new medicine picked up from clinic pharmacy. Patients stated that they have no concerns or questions at this time. Laura Moctezuma
== END 2024-12-12 15:46 | disposition home or self-care (01) | DRG 177 ==
LOC: ER 10:56 → ICU 11:10 → 2ND 12-11 13:51
PROVIDERS: Internal Medicine; Physician Assistant; Admitting Provider Internal Medicine Adolescent Medicine; Emergency Provider Emergency Medicine; PCP Family Medicine; Visit Provider Internal Medicine Adolescent Medicine
PROC: 4A023N7 Measurement of Cardiac Sampling and Pressure, Left Heart, Percutaneous Approach (ICD-10-PCS; principal; 2024-12-11 12:00)
DX: J69.0 Pneumonitis due to inhalation of food and vomit (principal); I21.4 Non-ST elevation (NSTEMI) myocardial infarction; R65.20 Severe sepsis without septic shock; I50.21 Acute systolic (congestive) heart failure; G40.919 Epilepsy, unspecified, intractable, without status epilepticus; B37.81 Candidal esophagitis; J18.9 Pneumonia, unspecified organism; F17.210 Nicotine dependence, cigarettes, uncomplicated
CPT/HCPCS: 36415; 70450; 70496; 70498; 71045; 71275; 73030; 73060; 73590; 73610; 73630; 74177; 80048; 80053; 80177; 80185; 80307; 81001; 82550; 82803; 83605; 83690; 83735; 83880; 84100; 84436; 84443; 84484; 85025; 85610; 85730; 86803; 87040; 87070; 87081; 87205; 87389; 87636; 93005; 93306; 93308; 93458; 93970; 97163; 97166; 97530; 97535; 99152; 99291; C1725; C1769; J0131; J0696; J1200; J1644; J1953; J2250; J2405; J2543; J3010; J3372; J3475; J7120; Q9957; Q9967

== ENCOUNTER 2025-03-25 00:49 | Inpatient (IN) | payer MEDICARE, MEDICAID, SELFPAY ==
[2025-03-25] VITALS (11 sets, daily range): BP systolic 113–129; BP diastolic 63–71; PULSE 88–128; RESP 14–30; TEMP 36.6–39.4; O2SAT 94–98; BMI 21.8
--- NOTE | 2025-03-25 00:31 | XR_ITS ---
PROCEDURE INFORMATION: Exam: XR Chest Exam date and time: 03/25/2025 1:01 AM Age: 64 years old Clinical indication: Other: Sepsis TECHNIQUE: Imaging protocol: Radiologic exam of the chest. Views: 1 view. COMPARISON: CR XR CHEST PORTABLE 12/11/2024 10:21 AM FINDINGS: Lungs: There is improved aeration to the lungs compared with prior study. A few mildly increased linear markings in the left mid lung still remain likely reflecting parenchymal scarring or atelectasis. Pleural spaces: No pleural effusions. Negative for pneumothorax. Heart/Mediastinum: Cardiac silhouette and pulmonary vasculature are within range of normal. Bones/joints: There is no evidence of acute fracture. IMPRESSION: 1. Improved clearing of the lungs when compared with prior study of 11/23/2024. 2. A few mildly increased linear markings in the left mid lung still remain likely reflecting parenchymal scarring or atelectasis.
--- NOTE | 2025-03-25 00:39 | PC.NURSE ---
Pt awake and alert at this time Skin hot dry and pink. Speech clear and appropriate. Resp full and easy Old weakness from previous stroke noted on left hand and leg. Pt cathed for urine
[2025-03-25] MEDS: VANCOMYCIN CONSULT REQUEST 1 EACH NOTAPPLIC (00:41)
[2025-03-25 00:42] LABS: Microscopic, Urine URINE MICROSCOPIC (MICROSCOPIC)
[2025-03-25 00:44] LABS: VBG Base Excess 1.4 mmol/L (-2.4-2.3); VBG HCO3 26.3 mmol/L (23-30); VBG PCO2 43.8 mmol/L (35-51); VBG PO2 34.3 mmol/L (28-40); VBG Total CO2 27.6 mmol/L (23-27)
[2025-03-25 00:44] LABS: Basophils % 0.2 % (0.1-2.0); Eosinophils # 0.1 Kmm3 (0.0-0.4); Eosinophils % 1.2 % (0.1-12.0); Hematocrit 37.5 % (42.0-52.0); Hemoglobin 12.6 g/dL (14.1-18.0); Immature Granulocytes # 0.02 10^3uL; Immature Granulocytes % 0.2 %; Lymphocytes # 3.7 K/mm3 (0.7-4.5); Lymphocytes % 44.1 % (10-50); Mean Corpuscular HGB Conc 33.6 g/dL (31.8-35.4); Mean Corpuscular Hemoglobin 29.7 pg (27.0-31.2); Mean Corpuscular Volume 88.4 fl (80-94); Mean Platelet Volume 9.6 fl (7.4-10.4); Monocytes # 0.6 K/mm3 (0.1-1.0); Monocytes % 6.9 % (1.7-9.3); Neutrophils % 47.4 % (37.0-80.0); Nucleated Red Blood Cells # 0 10^3/uL; Nucleated Red Blood Cells % 0 %; Platelet Count 209 K/mm3 (142-424); Red Blood Count 4.24 M/mm3 (4.60-6.20); Red Cell Distribution Width 16.3 % (11.5-17.5); Red Cell Distribution Width-SD 52.4 fL; White Blood Count 8.4 K/mm3 (4.8-10.8)
[2025-03-25] MEDS: ACETAMINOPHEN 1,000MG/100ML VIAL 1000 MG IV (00:45)
[2025-03-25 00:46] LABS: Appearance,Urine CLEAR (Clear); Bilirubin,Urine Negative (Negative); Blood, Urine Negative (Negative); Color,Urine YELLOW (Yellow); Glucose,Urine (UA) Negative (Negative); Ketones,Urine Negative (Negative); Leukocyte Esterase,Urine Negative (Negative); Nitrate,Urine Negative (Negative); Protein,Urine Negative (Negative); Specific Gravity, Urine 1.015 (1.005-1.030); Urobilinogen,Urine 0.2 EU/dl (0.2)
[2025-03-25 00:46] LABS: Lactate Venous 2.6 mmol/L (0.4-2.0)
[2025-03-25 00:50] LABS: Alanine Aminotransferase 25 U/L (12-78); Albumin Level 3.4 g/dl (3.5-5.0); Albumin/Globulin Ratio 0.8 (1.1-1.8); Alkaline Phosphatase 332 U/L (38-126); Aspartate Amino Transferase 39 U/L (17-59); Bacteria,Urine Trace /lpf; Bilirubin,Total 0.6 mg/dl (0.2-1.3); Blood Urea Nitrogen 7 mg/dl (9-20); Calcium 8.2 mg/dl (8.4-10.2); Carbon Dioxide 29 mmol/L (22.0-30.0); Chloride 102 mmol/L (98-107); Creatine Kinase 87 U/L (55-170); Creatinine Clearance Estimated 81 mL/min (50-200); Estimated Glomerular Filt Rate 167 ml/min (>60); GFR (African American) 203 ML/MIN (>60); Globulin 4.5 g/dL (1.3-3.2); Glucose 145 mg/dl (74-100); Sodium 135 mmol/L (136-145); Total Protein,Serum 7.9 g/dl (6.3-8.2); WBC,Urine Occasional #/hpf (0-3)
[2025-03-25 00:51] LABS: INR 0.98 (0.9-1.1); Prothrombin Time 10.9 seconds (10.1-12.5)
--- NOTE | 2025-03-25 00:57 | PC.NURSE ---
2nd set of blood cultures obtained Xray done at bedside
[2025-03-25] MEDS: METRONIDAZ/SOD CHL 500 MG/100 ML PIGGYBACK 100 MG IV (01:02)
[2025-03-25] MEDS: CEFEPIME HCL 2 GM in 0.9 % SODIUM CHLORIDE 100 ML IV ×3 (01:02→17:04)
[2025-03-25] MEDS: LACTATED RINGERS 1220 ML IV (01:03)
[2025-03-25 01:10] LABS: Lactic Acid 2.1 mmol/L (0.7-2.1)
[2025-03-25] MEDS: VANCOMYCIN/WATER FOR INJ (PEG) 1.25 GM/250 ML PIGGYBACK IV (01:15)
[2025-03-25 01:31] LABS: Adenovirus,PCR Not Detected (NotDetected); Bordetella Pertussis Not Detected (NotDetected); Chlamydophila Pneumoniae, PCR Not Detected (NotDetected); Coronavirus 19, PCR Not Detected (NotDetected); Coronavirus 229E Not Detected (NotDetected); Coronavirus NL63 Not Detected (NotDetected); Coronavirus OC43 Not Detected (NotDetected); Coronovirus HKU1,PCR Not Detected (NotDetected); Human Metapneumovirus Not Detected (NotDetected); Influenza A, PCR Not Detected (NotDetected); Influenza AH1, 2009 Not Detected (NotDetected); Influenza AH1, PCR Not Detected (NotDetected); Influenza AH3,PCR Not Detected (NotDetected); Influenza B, PCR Not Detected (NotDetected); Mycoplasma Pneumoniae, PCR Not Detected (NotDetected); Parainfluenza 1, PCR Not Detected (NotDetected); Parainfluenza 2, PCR Not Detected (NotDetected); Parainfluenza 3, PCR Not Detected (NotDetected); Parainfluenza 4, PCR Not Detected (NotDetected); Respiratory Syncytial Virus Not Detected (NotDetected); Rhinovirus/Enterovirus Not Detected (NotDetected)
--- NOTE | 2025-03-25 01:53 | ED_ITS ---
Discharge Plan Disposition Patient Disposition: Admitted Condition: Fair Prescriptions Prescriptions: No Action diazepam 10 mg tablet 10 mg PO BIDP PRN (Reason: Seizures) Patient Comments: TAKE 1 TABLET BY MOUTH TWICE DAILY NEEDED FOR ACUTE SEIZURES phenytoin sodium extended 100 mg capsule 300 mg PO HS Patient Comments: TAKE 2 CAPSULES BY MOUTH IN THE MORNING AND 3 CAPSULES IN THE EVENING phenytoin sodium extended 100 mg capsule 200 mg PO DAILY Patient Comments: TAKE 2 CAPSULES BY MOUTH IN THE MORNING AND 3 CAPSULES IN THE EVENING pantoprazole [Protonix] 40 mg tablet,delayed release (DR/EC) 40 mg PO BID Qty: 30 0RF levetiracetam [Keppra] 500 mg Tablet 1,000 mg PO BID 30 Days Qty: 120 0RF metoprolol succinate 25 mg Tablet Extended Release 24 Hr 25 mg PO DAILY 30 Days Qty: 30 0RF sacubitril-valsartan [Entresto] 24-26 mg Tablet 1 tab PO BID 30 Days Qty: 60 0RF atorvastatin 40 mg Tablet 80 mg PO HS 30 Days Qty: 60 0RF clopidogrel 75 mg Tablet 75 mg PO DAILY 30 Days Qty: 30 0RF aspirin 81 mg Tablet,Delayed Release (Dr/Ec) 81 mg PO DAILY 30 Days Qty: 30 0RF amoxicillin-pot clavulanate 875-125 mg tablet 1 tab PO BID 4 Days Qty: 8 0RF Rx Instructions: first dose morning of 12/13/24 Clinical Impressions Clinical Impression: Seizure, Sepsis Instructions Patient Instructions: DI for Seizure Disorder -- Adult, DI for Seizure (Not Epilepsy/Seizure Disorder), DI for Seizure Disorder -- Child Print Language Print Language: Malaysian Discharge ED Provider: Cam Koenig General Adult HPI General Chief complaint: Seizure Stated complaint: seizure Time Seen by Provider: 03/25/25 00:49 Mode of Arrival: EMS Source of Information: Patient and EMS Description of Symptoms (Recalled from ER Triage Doc. by RN): Pt having seizures at home Fever here History of Present Illness HPI narrative: 64-year-old male presents with [facility] for concerns of seizures. Patient has a known history of seizures and takes antiepileptic medications daily. He reportedly has not missed any medications. He also has a history of CVA with residual left-sided deficits, NSTEMI, HFrEF. EMS reports that they were called for seizures. They report that family told them patient had had 3 seizures since 7 PM. Each seizure lasted 1 to 2 minutes. The first seizure spontaneously resolved and patient recovered fully before later having a second seizure. Reportedly after having the second seizure they administered a home rescue medication and the seizure stopped. He then again completely recovered to baseline before he then later started having a third seizure. During the third seizure is when EMS was called. When EMS arrived on scene patient was not having seizure. They report he was speaking but his speech was a little bit difficult to understand but this quickly cleared over the next 10 to 15 minutes and by the time patient and EMS arrived to the ER they report he was a GCS 15 and completely back to baseline. EMS reports his lungs sounded junky so they administered a DuoNeb and route and they report his SpO2 was 90% on room air so they placed him on nasal cannula, patient has no baseline nasal cannula requirement. Patient and EMS both report that he had episode like this in the past and had pneumonia at that time. Patient reports he has not had seizure in many months. He does report cough and fevers. No dysuria or hematuria. He is able to ambulate with a walking stick and gets himself up to the bathroom, he reports he does not have to wear briefs and is not typically incontinent but did have incontinence during a seizure tonight. He reports no abdominal pain,, nausea, vomiting, or diarrhea. He reports no chest pain or difficulty breathing. No headache or dizziness. He has baseline left-sided weakness which is reportedly not worse at this time. Related Data Home Medications ?Medication ?Instructions ?Recorded ?Confirmed diazepam 10 mg tablet 10 mg PO BIDP PRN Seizures 1 11/16/22 12/10/24 phenytoin sodium extended 100 mg 200 mg PO DAILY 09/1612/10/24 capsule phenytoin sodium extended 100 mg 300 mg PO HS 09/16/23 12/10/24 capsule Previous Rx's ?Medication ?Instructions ?Recorded pantoprazole 40 mg tablet,delayed 40 mg PO BID #30 tab s 09/19/23 release (Protonix) amoxicillin 875 mg-potassium 1 tab PO BID 4 days #8 ta bs 12/12/24 clavulanate 125 mg tablet aspirin 81 mg tablet,delayed 81 mg PO DAILY 30 days #3 0 tabs 12/12/24 release atorvastatin 40 mg tablet 80 mg (2 x 40 mg) PO HS 30 d ays 12/12/24 #60 tabs clopidogrel 75 mg tablet 75 mg PO DAILY 30 days #30 t abs 12/12/24 levetiracetam 500 mg tablet 1,000 mg (2 x 500 mg) PO B ID 30 12/12/24 (Keppra) days #120 tabs metoprolol succinate 25 mg 25 mg PO DAILY 30 days #30 tabs 12/12/24 tablet,extended release 24 hr sacubitril 24 mg-valsartan 26 mg 1 tab PO BID 30 days #60 tabs 12/12/24 tablet (Entresto) Allergies Allergy/AdvReac Type Severity Reaction Status Date / Time phenobarbital Allergy Severe Swelling Verified 12/10/24 11:41 of Lip/Tongue/Throat PFSH FOR[facility]LY [facility] Disclaimer: The information contained in this section may have been updated after the patient was seen, as this information can be updated by other users. Medical History Erosive esophagitis Seizure disorder Elevated liver enzymes Acute upper gastrointestinal bleeding Left thyroid nodule Neutropenia Breakthrough seizure [place] esophagitis Transaminitis Tongue ulcer Candidiasis of mouth Pneumonia Surgical History History of surgery on lower extremity History of surgery of head Family History Other Cancer Social History Smoking Status: Never smoker alcohol intake: never substance use type: denies use current occupational status: other Travel in the last 8 weeks?: None Other Medical History Have you received the Flu Vaccine for this season: No Have you received the Pneumonia Vaccine: No ROS Obtained: Yes Systems reviewed as appropriate & no additional complaints except as documented per HPI Physical Exam General General appearance: alert and in no apparent distress Head Head exam: atraumatic and normocephalic Eye Eye exam: Present PERRL and EOMI ENT ENT exam: Present mucous membranes moist Neck Neck exam: Present normal inspection and full ROM; Absent tenderness, meningismus or lymphadenopathy Chest Chest inspection: Present symmetric chest wall rise Respiratory Respiratory exam: Absent normal lung sounds bilaterally (Mild rhonchi throughout that move with cough, no rales), respiratory distress, wheezes or stridor Cardiovascular Cardiovascular exam: Present normal rhythm and tachycardia Abdominal Exam Abdominal exam: Present soft; Absent distention, tenderness, guarding or rebound Extremities Exam Extremities exam: Present edema (Left lower extremity, patient reports this is); Absent tenderness, joint swelling or calf tenderness Neurological Exam Neurological exam: Present alert, oriented X3 and motor sensory deficit (Decree strength in left upper and lower extremity, baseline due to previous stroke) Psychiatric Psychiatric exam: Present normal affect and normal mood Skin Skin exam: Present warm and dry Medical Decision Making Medical Records Medical records reviewed: Yes I reviewed the patient's medical records. Screening: Per USPSTF and CDC recommendations, given the prevalence of disease in our region, it is our hospital?s policy to screen for HIV and viral Hepatitis for all patients aged 18 and over and those with ongoing risk factors. MR Comment: Patient was admitted in November 2024 for sepsis, pneumonia, elevated troponin, electrolyte derangements Lemer Inquiry Pt receiving controlled substance: No Vital Signs: 03/25/25 00:35 03/25/25 01:00 03/25/25 01:30 Temperature 103 F H Temperature Source Rectal Pulse Rate 121 H Pulse Rate [Right Brachial] 128 H Respiratory Rate 20 28 H Blood Pressure 119/65 113/63 Blood Pressure [Right Arm] 129/67 Blood Pressure Mean 78 76 Blood Pressure Mean [Right Arm] 87 Blood Pressure Source [Right Arm] Automatic Cuff Blood Pressure Position [Right Arm] Sitting 02 Sat by Pulse Oximetry 98 Oxygen Delivery Method Room Air 03/25/25 01:30 Temperature Temperature Source Pulse Rate 114 H Pulse Rate [Right Brachial] Respiratory Rate 30 H Blood Pressure Blood Pressure [Right Arm] Blood Pressure Mean Blood Pressure Mean [Right Arm] Blood Pressure Source [Right Arm] Blood Pressure Position [Right Arm] 02 Sat by Pulse Oximetry 95 Oxygen Delivery Method Lab Data Lab Results 03/25/25 00:30: WBC 8.4, RBC 4.24 L, Hgb 12.6 L, Hct 37.5 L, MCV 88.4, MCH 29.7, MCHC 33.6, RDW 16.3, Plt Count 209, MPV 9.6, Neut % (Auto) 47.4, Lymph % (Auto) 44.1, [place] % (Auto) 6.9, Eos % (Auto) 1.2, Baso % (Auto) 0.2, Neut # (Auto) 4.0, Lymph # (Auto) 3.7, Crowley # (Auto) 0.6, Eos # (Auto) 0.1, Baso # (Auto) 0.0, PT 10.9, INR 0.98, Sodium 135 L, Potassium 4.0, Chloride 102, Carbon Dioxide 29, Anion Gap 8.0, BUN 7 L, Creatinine 0.50 L, Estimated Creat Clear 81, Estimated GFR 167, Est GFR ( Amer) 203, Glucose 145 H, Lactate 2.1, Calcium 8.2 L, Total Bilirubin 0.6, AST 39, ALT 25, Alkaline Phosphatase 332 H, Total Creatine Kinase 87, Total Protein 7.9 D, Albumin 3.4 L, Globulin 4.5 H, Albumin/Globulin Ratio 0.8 L, Urine Color Yellow, Urine Appearance Clear, Urine pH 7.0, Ur Specific [place] 1.015, Urine Protein Negative, Urine Glucose (UA) Negative, Urine Ketones Negative, Urine Blood Negative, Urine Nitrate Negative, Urine Bilirubin Negative, Urine Urobilinogen 0.2, Ur Leukocyte Esterase Negative, Urine WBC Occasional, Ur Squamous Epith Cells 3-5, Urine Bacteria Trace 03/25/25 00:38: VBG pH 7.40, VBG pCO2 43.8, VBG pO2 34.3, VBG HCO3 26.3, VBG Total CO2 27.6 H, VBG O2 Saturation 67.0, VBG Base Excess 1.4, VBG Lactic Acid 2.6 H 03/25/25 00:30 03/25/25 00:30 Orders (Tests/Meds): ED MEDICATIONS Generic Name Dose Route Start Last Admin Trade Name Lawq PRN Reason Stop Dose Admin Lactated Ringer's 2,440 mls @ 1,220 mls/hr 03/25/25 00:37 03/25/25 01:03 Lactated Ringer's 1000 Ml Bag 30 ml/kg infuse over 2 hr (2440 ml) 03/25/25 02:36 1,220 mls/hr IV Administration .Q2H ONE Vancomycin/PEG/NADA/Lysine/Water 1.25 gm in 250 mls @ 125 mls/hr 03/25/25 00:45 03/25/25 01:15 Vancomycin 1.25gm/250ml (Peg) Premix IV 03/25/25 02:44 125 mls/hr ONCE ONE Administration Lorazepam 2 mg 03/25/25 00:32 Lorazepam 2mg/Ml Vial IV 04/24/25 00:31 ONCE PRN Seizures Miscellaneous 1 each 03/25/25 00:30 03/25/25 00:41 Vancomycin Consult Request NOTAPPLIC 04/24/25 00:29 1 each CONSULT [facility]ARMACY [facility] Administration Sodium Chloride 10 ml 03/25/25 00:32 Sodium Chloride 0.9% 10ml Vial IV 04/24/25 00:31 NEEDED PRN to Dilute Lorazepam inj Discontinued Medications Generic Name Dose Route Start Last Admin Trade Name Freq PRN Reason Stop Dose Admin Acetaminophen 1,000 mg 03/25/25 00:32 03/25/25 00:45 Acetaminophen 1,000mg/100ml Vial IV 03/25/25 00:33 1,000 mg ONCE ONE Administration Cefepime HCl 2 gm/ Sodium 100 mls @ 200 mls/hr 03/25/25 00:32 03/25/25 01:02 Chloride IV 03/25/25 01:01 200 mls/hr ONCE ONE Administration Metronidazole 500 mg in 100 mls @ 100 mls/hr 03/25/25 00:32 03/25/25 01:02 Flagyl 500mg/100ml Ivpb IV 03/25/25 01:31 100 mls/hr ONCE ONE Administration Levetiracetam 3,000 mg/ Sodium 130 mls @ 260 mls/hr 03/25/25 00:32 03/25/25 00:44 Chloride IV 03/25/25 00:33 260 mls/hr ONCE ONE Administration ORDERS Category Date Time Status XR chest portable Stat Exams 03/25/25 00:31 Taken Complete Blood Count Auto Diff Stat Lab 03/25/25 00:30 Completed Comprehensive Metabolic Panel Stat Lab 03/25/25 00:30 Completed Creatine Kinase Stat Lab 03/25/25 00:30 Completed Full Resp Panel w/COVID ([facility]) Routine Lab 03/25/25 01:17 Received Lactic Acid Stat Lab 03/25/25 00:30 Completed Prothrombin Time INR Stat Lab 03/25/25 00:30 Completed Urinalysis and Microscopic Stat Lab 03/25/25 00:30 Completed Blood Culture Stat Micro 03/25/25 00:59 Received Urine Culture Stat Micro 03/25/25 00:31 Received VBG [Venous Blood Gas] Stat RT 03/25/25 00:38 Completed Tissue Perfus/Sepsis Re-Eval Sepsis Re-Evaluation Performed: Yes Date Performed: 03/25/25 Time Performed: 02:11 Medical Decision Narrative: In summary, this 64-year-old male with comorbidities described in the HPI which may not be at goal therapy presents to the emergency department today with seizures, productive cough, fever. On initial evaluation patient is tachycardic but normotensive, febrile to 103, mildly tachypneic but not in respiratory distress, rhonchi throughout with no rales or wheezing, saturating well on room air. Differential diagnosis includes but is not limited to breakthrough seizure, sepsis, viral syndrome, pneumonia, aspiration, urinary tract infection, bacteremia, had also considered meningitis but have very low suspicion for this at this time since patient has no headache or neck pain, no meningismus, and has likely other source with the adventitious sounds present in his lungs potentially from pneumonia. Based on these concerns, I ordered serum labs, chest x-ray, urine studies, blood cultures, VBG. Patient received sepsis bolus of LR as well as broad-spectrum antibiotics including vancomycin, cefepime, Flagyl for treatment. The Flagyl was chosen for anaerobic coverage given the possibility of aspiration since patient has a history of seizures, though I suspect with his seizures only starting today that his less likely the cause of his lung pathology. Additionally, IV Keppra load was administered. 3 g of IV Keppra was administered since patient thinks he took his nighttime 1 g dose of Keppra this evening. Labs personally reviewed demonstrate no leukocytosis, anemia improved from November labs which I reviewed, platelets normal, PT/INR normal, VBG with normal pH but elevated lactic at 2.6. CMP with trace hyponatremia but not significant enough to be causing seizures, lactic on chemistry is 2.1, mild hypocalcemia improved from previous, alkaline phosphatase is elevated but this has been elevated in the past and patient does not have any symptoms of gallbladder pathology, CK normal at 87, UA negative for findings of infection. Chest x-ray personally interpreted does not demonstrate lobar infiltrate however there are diffuse patchy infiltrates concerning for atypical infection. Radiology read pending. On reassessment patient's heart rate has significantly improved with the IV fluids, antipyretics, and broad-spectrum antibiotics that have been administered. His temperature is also down to 100.5. He has not had any seizure activity in the ER. Respiratory rate is also improved. I believe he is appropriate for admission at this time for management of sepsis, suspected atypical pneumonia. I discussed this case with the hospitalist, Jesus, we reviewed this patient's presentation, report from EMS and family, clinical course and improvement with interventions as well as his lab and imaging results so far. He graciously accepted the patient for admission. Patient admitted in stable condition. Critical Care Critical Care Time Critical Care Time: No
--- OUTSIDE RECORDS SUMMARY | 2025-03-25 01:56 | XMS_ITS | Data Portability ---
Author Organization [facility] Address [address] [place] [address] Assessment Encounter Date Assessment Date Assessment LastModified by Organization Details LastModified Time 04/09/2023 04/09/2023 Mr. Curiel presents for a wellness exam. He has a seizure disorder and has fairly frequent seizure activity that is stable. He is accompanied by his always. He does not drive. He has not smoked for over five years and has been staying well. He has gained weight since he stopped and we discussed being cautious with any more weight gain. He and his do walk regularly. Labs are reviewed and are all acceptable. He has gained weight and has GERD. We recommend stopping the sodas. Medications are reconciled. Blood pressure has improved so he will continue the low dose of lisinopril. He continues to decline all colon cancer screening tests. Depression screen is negative and fall risk is low. Vaccines are reviewed and we recommend he get shingles and tetanus updates as well as the Covid vaccines from his pharmacy. A ten year calculated CV risk is 10.27%. We continue to encourage healthy lifestyle choices. [email or web address] Not available 04/09/2023 23:12:19 09/25/2023 09/25/2023 Mr. Curiel recently required admission at [facility] for a pneumonia. He also had severe thrush and it became so severe that he could not swallow any of his medications. Without the seizure medications his already severe seizure disorder became worse with multiple seizures daily. Now that he is back on his medications, the seizures have calmed down. He is still taking the nystatin solution and has refills. We recommend he obtain the flu vaccine as well as the RSV vaccine. [email or web address] Not available 09/25/2023 23:10:33 06/13/2024 06/13/2024 Mr. Curiel presents for a wellness exam. He has a seizure disorder and has fairly frequent seizure activity that is stable. He is accompanied by his always. He does not drive. He has not smoked for over five years and has been staying well. He has gained weight since he stopped and we discussed being cautious with any more weight gain. He and his had been walking regularly but he has not been walking as much lately. He primarily sits and has become more weak. We discussed that he should resume some walking regularly with his to avoid more frailty and falls. Labs are reviewed and are all acceptable. He has gained weight and has GERD. We recommend stopping the sodas. Medications are reconciled. Blood pressure has improved so he will continue the low dose of lisinopril. He continues to decline all colon cancer screening tests. Depression screen is negative and fall risk is low. Vaccines are reviewed and we recommend he get shingles updates and flu vaccines from his pharmacy. A ten year calculated CV risk is 11.03%. We continue to encourage healthy lifestyle choices. [email or web address] Not available 06/15/2024 21:30:34 12/25/2024 12/25/2024 Mr. Curiel has been hospitalized for 2 days in late November for status epilepticus and was found to have bilateral pneumonia as well as a non-STEMI. His medications were changed and reviewed. His Keppra was increased by 500 mg and he was started on Entresto and metoprolol. He states he feels well and has no plans to keep any cardiology appointments at [facility]. His blood pressure is controlled and his exam is normal with a slight elevation of his heart rate of 100. We recommend labs and since he is here he will get those today. We will follow up with him later this month. [email or web address] Not available 12/25/2024 13:36:20 01/06/2025 01/06/2025 Mr. Curiel is doing well since an episode of status epilepticus and a NSTEMI in November. He feels well and has only had one light seizure since which is his baseline. He has had no shortness of breath or chest pains and is tolerating the new anti-hypertensi ve medications. He was treated acutely with plavix for acute coronary syndrome but did not have a stent so we will discontinue that and continue the low dose aspirin only. His dilantin level was unusually low so we will recheck that in 2 months He is encouraged to resume some walking. He is a former smoker but his still smokes. We recommend a Prevnar 20 vaccine and he receives that today. Not available 01/06/2025 12:56:24 Plan of Treatment Reminders Order Date Submit Date Provider Last Modified By Organization Details Last Modified Time Details Appointments None recorded. Lab phenytoin, total, serum 2024 025 uniRowtapleto n5 [facility], [address], [place], [address], 5 08:31:08 CMP, serum or plasma 2024 025 uniRowtapleto n5 [facility], [address], [place], [address], 5 10:52:48 levetiracet am, serum 2024 025 [facility], [address], [place], [address], 5 12:48:07 phenytoin, total, serum 2024 025 [facility], [address], [place], [address], 5 12:48:07 CBC w/ auto diff 2024 025 [facility], [address], [place], [address], 5 12:25:15 CMP, serum or plasma 2024 025 [facility], [address], [place], [address], 5 12:48:07 lipid panel, serum 2024 025 [facility], [address], [place], [address], 12:48:07 urinalysis, dipstick 2022 023 [email or web address] n5 [facility], [address] [facility], [place], [address], 3 12:15:27 Referral None recorded. Procedures None recorded. Surgeries None recorded. Imaging None recorded. Medication Orders aspirin 81 mg tablet,nahum yed release 2024 025 [id number], [address] [place], [address], 5 09:57:20 Entresto 24 mg-26 mg tablet 2024 025 [id number] [address] [place], [address], 5 09:57:21 metoprolol succinate ER 25 mg tablet,exte nded release 24 hr 2024 025 [id number], [address] [place], [address], 5 09:57:20 Patient TargetsNo targets recorded. Patient Instructions Encounter Date Encounter Id Patient Instructions Last Modified By Organization Details Last Modified Time 09/25/2023 [id number] influenza (flu) vaccine (inactivated or recombinant): what you need to know Not available 09/25/2023 15:56:27 Reason for Referral None Reported. Results Created Date Observation Date Name Description Value Unit Range Abnormal Flag Note LastModifiedBy Organization Detail LastModifiedTime 04/02/2004/03/2023 LIPID PANEL , STAND LUIS cholesterol, total 153 mg/dL <200 normal Not Available [facility] [place] [facility] [address] [facility], [place], [address], 04/03/2023 13:10:50 04/02/2004/0304/03/2023 LIPID PANEL , STAND LUIS HDL cholesterol 46 mg/dL > or = 40 normal Not Available [facility] [place] [facility] [address] [facility], [place], [address], 04/03/2023 13:10:50 04/02/20 23 04/03/2023 LIPID PANEL , STAND LUIS triglyceride s 143 mg/dL <150 normal Not Available [facility] [place] [facility] [address] [facility], [place], [address], 04/03/2023 13:10:50 04/02/20 23 04/03/2023 LIPID PANEL , STAND LUIS LDL-choleste rol 83 mg/dL _(michael c) normal Refer ence range : <100 Gary able range <100 mg/dL for prima ry preve ntion ; <70 mg/dL for patie nts with CHD or diabe tic patie nts with > or = 2 CHD risk facto rs. LDL-C is now calcu lated using the Lita n-Hop kins calcu latio n, which is a valid ated novel metho d provi ding dewayne r accur acy than the Fried leelee equat ion in the estim ation of LDL-C . Lita shen SS et al. CEE. 2013; 310(1 9): 2061- 2068 (http ://ed ucati on.Qu Rick Glocal. com/f aq/FA Q164) Not Available [facility] [place] [facility] [address] [facility], [place], [address], 04/03/2023 13:10:50 04/02/20 23 04/03/2023 LIPID PANEL , STAND LUIS chol/HDLC ratio 3.3 (calc ) <5.0 normal Not Available [facility] [place] [facility] [address] [facility], [place], [address], 04/03/2023 13:10:50 04/02/20 23 04/03/2023 LIPID PANEL , STAND LUIS non HDL cholesterol 107 mg/dL _(michael c) <130 normal For patie nts with diabe carlos plus 1 major ASCVD risk facto r, treat ing to a non-H DL-C goal of <100 mg/dL (LDL- C of <70 mg/dL ) is shiloh aleman optio n. Not Available [facility] [place] [facility] [address] [place], [address], 04/03/2023 13:10:50 04/02/20 23 04/03/2023 COMPR EHENS BONY METAB OLIC PANEL glucose 92 mg/dL 65-99 normal Fasti ng refer ence inter bandar Not Available [facility] [place] [facility] [address] [place], [address], 04/03/2023 13:10:51 04/02/20 23 04/03/2023 COMPR EHENS BONY METAB OLIC PANEL urea nitrogen (BUN) 10 mg/dL 7-25 normal Not Available [facility] [place] [facility] [address] [place], [address], 04/03/2023 13:10:51 04/02/20 23 04/03/2023 COMPR EHENS BONY METAB OLIC PANEL creatinine 0.83 mg/dL 0.70-1 .35 normal Not Available [facility] [place] [facility] [address] [place], [address], 04/03/2023 13:10:51 04/02/20 23 04/03/2023 COMPR EHENS BONY METAB OLIC PANEL eGFR 99 mL/mi n/1.7 3m2 > or = 60 normal The eGFR is based on the CKD-E PI 2020 equat ion. To calcu late the new eGFR from a previ ous Creat inine or Cysta trevon C agustin t, go to https ://alida morrow.jono grimm/ghassan sexton/ kdoqi /gfr% 5Fcal culat or Not Available [facility] [place] [facility] [address] [place], [address], 04/03/2023 13:10:51 04/02/20 23 04/03/2023 COMPR EHENS BONY METAB OLIC PANEL BUN/creatini ne ratio NOT APPLIC ABLE (calc ) 6-22 Not Available [facility] [address] [facility] [place], [address], 04/03/2023 13:10:51 04/02/20 23 04/03/2023 COMPR EHENS BONY METAB OLIC PANEL sodium 137 mmol/ L 135-14 6 normal Not Available [facility] [address] [place], [address], 04/03/2023 13:10:51 04/02/20 23 04/03/2023 COMPR EHENS BONY METAB OLIC PANEL potassium 4.1 mmol/ L 3.5-5. 3 normal Not Available [facility] [address] [place], [address], 04/03/2023 13:10:51 04/02/20 23 04/03/2023 COMPR EHENS BONY METAB OLIC PANEL chloride 105 mmol/ L 98-110 normal Not Available [facility] [address] [place], [address], 04/03/2023 13:10:51 04/02/20 23 04/03/2023 COMPR EHENS BONY METAB OLIC PANEL carbon dioxide 26 mmol/ L 20-32 normal Not Available [facility] [address] [place], [address], 04/03/2023 13:10:51 04/02/20 23 04/03/2023 COMPR EHENS BONY METAB OLIC PANEL calcium 8.7 mg/dL 8.6-10 .3 normal Not Available [facility] [address] [place], [address], 04/03/2023 13:10:51 04/02/20 23 04/03/2023 COMPR EHENS BONY METAB OLIC PANEL protein, total 7.1 g/dL 6.1-8. 1 normal Not Available [employer] [facility] [address] [place], [address], 04/03/2023 13:10:51 04/02/20 23 04/03/2023 COMPR EHENS BONY METAB OLIC PANEL albumin 3.7 g/dL 3.6-5. 1 normal Not Available [facility] [employer] [facility] [address] [facility] [place], [address], 04/03/2023 13:10:51 04/02/20 23 04/03/2023 COMPR EHENS BONY METAB OLIC PANEL globulin 3.4 g/dL_ (calc ) 1.9-3. 7 normal Not Available [employer] [facility] [address] [place], [address], 04/03/2023 13:10:51 04/02/20 23 04/03/2023 COMPR EHENS BONY METAB OLIC PANEL albumin/glob ulin ratio 1.1 (calc ) 1.0-2. 5 normal Not Available [employer] [facility] [address] [facility] [place], [address], 04/03/2023 13:10:51 04/02/20 23 04/03/2023 COMPR EHENS BONY METAB OLIC PANEL bilirubin, total 0.4 mg/dL 0.2-1. 2 normal Not Available [facility] [employer] [facility] [address] [facility] [place], [address], 04/03/2023 13:10:51 04/02/20 23 04/03/2023 COMPR EHENS BONY METAB OLIC PANEL alkaline phosphatase 181 U/L 35-144 high Not Available [facility] [employer] [facility] [address] [facility] [place], [address], 04/03/2023 13:10:51 04/02/20 23 04/03/2023 COMPR EHENS BONY METAB OLIC PANEL AST 16 U/L 10-35 normal Not Available [facility] [address] [facility] [place], [address], 04/03/2023 13:10:51 04/02/2004/03/2023 COMPR EHENS BONY METAB OLIC PANEL ALT 14 U/L 9-46 normal Not Available [facility] [address] [place], [address], 04/03/2023 13:10:51 04/02/2004/03/2023 TSH TSH 1.33 mIU/L 0.40-4 .50 normal Not Available [facility] [address] [facility] [place], [address], 04/03/2023 13:10:51 04/02/20 23 04/03/2023 CBC (INCL UDES DIFF/ PLT) white blood cell count 6.6 thous and/u L 3.8-10 .8 normal Not Available [facility] [address] [facility] [place], [address], 04/03/2023 13:10:52 04/02/20 23 04/03/2023 CBC (INCL UDES DIFF/ PLT) red blood cell count 4.31 brian on/uL 4.20-5 .80 normal Not Available [facility] [address] [place], [address], 04/03/2023 13:10:52 04/02/2004/03/2023 CBC (INCL UDES DIFF/ PLT) hemoglobin 13.8 g/dL 13.2-1 7.1 normal Not Available [facility] [address] [place], [address], 04/03/2023 13:10:52 04/02/20 23 04/03/2023 CBC (INCL UDES DIFF/ PLT) hematocrit 40.5 % 38.5-5 0.0 normal Not Available [facility] [address] [facility] [place], [address], 04/03/2023 13:10:52 04/02/2004/03/2023 CBC (INCL UDES DIFF/ PLT) MCV 94.0 fL 80.0-1 00.0 normal Not Available [facility] [address] [facility] [place], [address], 04/03/2023 13:10:52 04/02/20 23 04/03/2023 CBC (INCL UDES DIFF/ PLT) MCH 32.0 pg 27.0-3 3.0 normal Not Available [facility] [address] [facility] [place], [address], 04/03/2023 13:10:52 04/02/2004/03/2023 CBC (INCL UDES DIFF/ PLT) MCHC 34.1 g/dL 32.0-3 6.0 normal Not Available [facility] [address] [facility] [place], [address], 04/03/2023 13:10:52 04/02/2004/03/2023 CBC (INCL UDES DIFF/ PLT) RDW 13.0 % 11.0-1 5.0 normal Not Available [facility] [address] [facility] [place], [address], 04/03/2023 13:10:52 04/02/20 23 04/03/2023 CBC (INCL UDES DIFF/ PLT) platelet count 203 thous and/u L 140-40 0 normal Not Available [facility] [address] [facility] [place], [address], 04/03/2023 13:10:52 04/02/20 23 04/03/2023 CBC (INCL UDES DIFF/ PLT) MPV 11.1 fL 7.5-12 .5 normal Not Available [facility] [place] [facility] [address], [place], [address], 04/03/2023 13:10:52 04/02/2004/03/2023 CBC (INCL UDES DIFF/ PLT) absolute neutrophils 990 cells /uL 1500-7 800 low Not Available [facility] [place] [facility] [address], [place], [address], 04/03/2023 13:10:52 04/02/2004/03/2023 CBC (INCL UDES DIFF/ PLT) absolute lymphocytes 4389 cells /uL 850-39 00 high Not Available [facility] [place] [facility] [address], [place], [address], 04/03/2023 13:10:52 04/02/2004/03/2023 CBC (INCL UDES DIFF/ PLT) absolute monocytes 983 cells /uL 200-95 0 high Not Available [facility] [place] [facility] [address], [place], [address], 04/03/2023 13:10:52 04/02/2004/03/2023 CBC (INCL UDES DIFF/ PLT) absolute eosinophils 218 cells /uL 15-500 normal Not Available [facility] [place] [facility] [address], [place], [address], 04/03/2023 13:10:52 04/02/2004/03/2023 CBC (INCL UDES DIFF/ PLT) absolute basophils 20 cells /uL 0-200 normal Not Available [facility] [place] [facility] [address], [place], [address], 04/03/2023 13:10:52 04/02/2004/03/2023 CBC (INCL UDES DIFF/ PLT) neutrophils 15 % normal Not Available [facility] [place] [facility] [address], [place], [address], 04/03/2023 13:10:52 04/02/20 23 04/03/2023 CBC (INCL UDES DIFF/ PLT) lymphocytes 66.5 % normal Not Available [facility] [place] [facility] [address], [place], [address], 04/03/2023 13:10:52 04/02/20 23 04/03/2023 CBC (INCL UDES DIFF/ PLT) monocytes 14.9 % normal Not Available [facility] [place] [facility] [address], [place], [address], 04/03/2023 13:10:52 04/02/2004/03/2023 CBC (INCL UDES DIFF/ PLT) eosinophils 3.3 % normal Not Available [facility] [place] [facility] [address], [place], [address], 04/03/2023 13:10:52 04/02/20 23 04/03/2023 CBC (INCL UDES DIFF/ PLT) basophils 0.3 % normal Not Available [facility] [place] [facility] [address], [place], [address], 04/03/2023 13:10:52 04/02/20 23 04/03/2023 PHENY TOIN phenytoin 13.0 mg/L 10.0-2 0.0 normal Not Available [facility] [place] [facility] [address] [facility], [place], [address], 04/03/2023 13:10:52 04/09/2004/09/2023 urina lysis , dipst ick Leukocytes Negati ve Not Available [facility] [address] [place], [address], 04/09/2023 12:14:46 04/09/2004/09/2023 urina lysis , dipst ick Nitrite negati ve Not Available [facility] [address] [place], [address], 04/09/2023 12:14:46 04/09/20 23 04/09/2023 urina lysis , dipst ick Urobilinogen .2 Not Available [facility] [address] [place], [address], 04/09/2023 12:14:46 04/09/20 23 04/09/2023 urina lysis , dipst ick Protein Negati ve Not Available [facility] [address] [place], [address], 04/09/2023 12:14:46 04/09/20 23 04/09/2023 urina lysis , dipst ick pH 7.0 Not Available [facility] [address] [place], [address], 04/09/2023 12:14:46 04/09/20 23 04/09/2023 urina lysis , dipst ick Blood Negati ve Not Available [facility] [address] [place], [address], 04/09/2023 12:14:46 04/09/20 23 04/09/2023 urina lysis , dipst ick Specific [place] 1.015 Not Available [facility] [address] [place], [address], 04/09/2023 12:14:46 04/09/20 23 04/09/2023 urina lysis , dipst ick Ketone Negati ve Not Available [facility] [address] [place], [address], 04/09/2023 12:14:46 04/09/20 23 04/09/2023 urina lysis , dipst ick Bilirubin Negati ve Not Available [facility] [address] [place], [address], 04/09/2023 12:14:46 04/09/20 23 04/09/2023 urina lysis , dipst ick Glucose Negati ve Not Available [facility] [address], [place], [address], 04/09/2023 12:14:46 04/04/20 24 04/09/2024 LIPID PANEL , STAND LUIS cholesterol, total 158 mg/dL <200 normal Not Available [facility] [place] [facility] [address] [facility], [place], [address], 04/09/2024 14:32:21 04/04/20 24 04/09/2024 LIPID PANEL , STAND LUIS HDL cholesterol 48 mg/dL > or = 40 normal Not Available [facility] [place] [facility] [address] [facility], [place], [address], 04/09/2024 14:32:21 04/04/20 24 04/09/2024 LIPID PANEL , STAND LUIS triglyceride s 99 mg/dL <150 normal Not Available [facility] [place] [facility] [address] [facility] [facility], [place], [address], 04/09/2024 14:32:21 04/04/20 24 04/09/2024 LIPID PANEL , STAND LUIS LDL-choleste rol 91 mg/dL _(michael c) normal Refer ence range : <100 Gary able range <100 mg/dL for prima ry preve ntion ; <70 mg/dL for patie nts with CHD or diabe tic patie nts with > or = 2 CHD risk facto rs. LDL-C is now calcu lated using the Lita shen-Hop kins calcu anais n, which is a valid ated novel metho d provi ding dewayne r accur acy than the Fried leelee equat ion in the estim ation of LDL-C . Lita shen SS et al. CEE. 2013; 310(1 9): 2061- 2068 (http ://ed ucati on.Qu Rick Glocal. com/f aq/FA Q164) Not Available [facility] [place] [facility] [address] [facility], [place], [address], 04/09/2024 14:32:21 04/04/20 24 04/09/2024 LIPID PANEL , STAND LUIS chol/HDLC ratio 3.3 (calc ) <5.0 normal Not Available [facility] [place] [facility] [address] [facility] [place], [address], 04/09/2024 14:32:21 04/04/20 24 04/09/2024 LIPID PANEL , STAND LUIS non HDL cholesterol 110 mg/dL _(michael c) <130 normal For patie nts with diabe carlos plus 1 major ASCVD risk facto r, treat ing to a non-H DL-C goal of <100 mg/dL (LDL- C of <70 mg/dL ) is consi borisd a gena keith c optio n. Not Available [facility] [address] [place], [address], 04/09/2024 14:32:21 04/04/20 24 04/09/2024 COMPR EHENS BONY METAB OLIC PANEL glucose 94 mg/dL 65-99 normal Fasti ng refer ence inter bandar Not Available [facility] [place] [facility] [address] [place], [address], 04/09/2024 14:32:22 04/04/20 24 04/09/2024 COMPR EHENS BONY METAB OLIC PANEL urea nitrogen (BUN) 7 mg/dL 7-25 normal Not Available [facility] [place] [facility] [address] [place], [address], 04/09/2024 14:32:22 04/04/20 24 04/09/2024 COMPR EHENS BONY METAB OLIC PANEL creatinine 0.63 mg/dL 0.70-1 .35 low Not Available [facility] [address] [place], [address], 04/09/2024 14:32:22 04/04/20 24 04/09/2024 COMPR EHENS BONY METAB OLIC PANEL eGFR 107 mL/mi n/1.7 3m2 > or = 60 normal Not Available [facility] [address] [facility] [place], [address], 04/09/2024 14:32:22 04/04/20 24 04/09/2024 COMPR EHENS BONY METAB OLIC PANEL BUN/creatini ne ratio 11 (calc ) 6-22 normal Not Available [facility] [address] [facility] [place], [address], 04/09/2024 14:32:22 04/04/20 24 04/09/2024 COMPR EHENS BONY METAB OLIC PANEL sodium 133 mmol/ L 135-14 6 low Not Available [facility] [address] [facility] [place], [address], 04/09/2024 14:32:22 04/04/20 24 04/09/2024 COMPR EHENS BONY METAB OLIC PANEL potassium 4.5 mmol/ L 3.5-5. 3 normal Not Available [facility] [address] [facility] [place], [address], 04/09/2024 14:32:22 04/04/20 24 04/09/2024 COMPR EHENS BONY METAB OLIC PANEL chloride 102 mmol/ L 98-110 normal Not Available [facility] [address] [place], [address], 04/09/2024 14:32:22 04/04/20 24 04/09/2024 COMPR EHENS BONY METAB OLIC PANEL carbon dioxide 24 mmol/ L 20-32 normal Not Available [facility] [address] [place], [address], 04/09/2024 14:32:22 04/04/20 24 04/09/2024 COMPR EHENS BONY METAB OLIC PANEL calcium 8.7 mg/dL 8.6-10 .3 normal Not Available [employer] [facility] [address], [place], [address], 04/09/2024 14:32:22 04/04/20 24 04/09/2024 COMPR EHENS BONY METAB OLIC PANEL protein, total 7.2 g/dL 6.1-8. 1 normal Not Available [facility] [employer] [facility] [place] [facility] [address] [facility] [place], [address], 04/09/2024 14:32:22 04/04/20 24 04/09/2024 COMPR EHENS BONY METAB OLIC PANEL albumin 3.4 g/dL 3.6-5. 1 low Not Available [facility] [employer] [facility] [address] [place], [address], 04/09/2024 14:32:22 04/04/20 24 04/09/2024 COMPR EHENS BONY METAB OLIC PANEL globulin 3.8 g/dL_ (calc ) 1.9-3. 7 high Not Available [facility] [place] [facility] [address], [address], 04/09/2024 14:32:22 04/04/20 24 04/09/2024 COMPR EHENS BONY METAB OLIC PANEL albumin/glob ulin ratio 0.9 (calc ) 1.0-2. 5 low Not Available [facility] [employer] [facility] [place], [address], 04/09/2024 14:32:22 04/04/20 24 04/09/2024 COMPR EHENS BONY METAB OLIC PANEL bilirubin, total 0.7 mg/dL 0.2-1. 2 normal Not Available [facility] [place] [facility] [address] [place], [address], 04/09/2024 14:32:22 04/04/20 24 04/09/2024 COMPR EHENS BONY METAB OLIC PANEL alkaline phosphatase 205 U/L 35-144 high Not Available [facility] [place] [facility] [address] [place], [address], 04/09/2024 14:32:22 04/04/20 24 04/09/2024 COMPR EHENS BONY METAB OLIC PANEL AST 21 U/L 10-35 normal Not Available [facility] [address] [place], [address], 04/09/2024 14:32:22 04/04/20 24 04/09/2024 COMPR EHENS BONY METAB OLIC PANEL ALT 33 U/L 9-46 normal Not Available [facility] [place] [facility] [address] [place], [address], 04/09/2024 14:32:22 04/04/20 24 04/09/2024 TSH TSH 1.26 mIU/L 0.40-4 .50 normal Not Available [facility] [address] [place], [address], 04/09/2024 14:32:23 04/04/20 24 04/09/2024 CBC (INCL UDES DIFF/ PLT) white blood cell count 9.4 thous and/u L 3.8-10 .8 normal Not Available [facility] [address] [place], [address], 04/09/2024 14:32:23 04/04/20 24 04/09/2024 CBC (INCL UDES DIFF/ PLT) red blood cell count 4.45 brian on/uL 4.20-5 .80 normal Not Available [facility] [address] [place], [address], 04/09/2024 14:32:23 04/04/20 24 04/09/2024 CBC (INCL UDES DIFF/ PLT) hemoglobin 13.2 g/dL 13.2-1 7.1 normal Not Available [facility] [address] [place], [address], 04/09/2024 14:32:23 04/04/20 24 04/09/2024 CBC (INCL UDES DIFF/ PLT) hematocrit 40.8 % 38.5-5 0.0 normal Not Available [facility] [place] [facility] [address] [place], [address], 04/09/2024 14:32:23 04/04/20 24 04/09/2024 CBC (INCL UDES DIFF/ PLT) MCV 91.7 fL 80.0-1 00.0 normal Not Available [facility] [place] [facility] [address] [place], [address], 04/09/2024 14:32:23 04/04/20 24 04/09/2024 CBC (INCL UDES DIFF/ PLT) MCH 29.7 pg 27.0-3 3.0 normal Not Available [facility] [place] [facility] [address] [place], [address], 04/09/2024 14:32:23 04/04/20 24 04/09/2024 CBC (INCL UDES DIFF/ PLT) MCHC 32.4 g/dL 32.0-3 6.0 normal Not Available [facility] [place] [facility] [address] [place], [address], 04/09/2024 14:32:23 04/04/20 24 04/09/2024 CBC (INCL UDES DIFF/ PLT) RDW 14.4 % 11.0-1 5.0 normal Not Available [facility] [place] [facility] [address] [facility], [place], [address], 04/09/2024 14:32:23 04/04/20 24 04/09/2024 CBC (INCL UDES DIFF/ PLT) platelet count 312 thous and/u L 140-40 0 normal Not Available [facility] [place] [facility] [address] [place], [address], 04/09/2024 14:32:23 04/04/20 24 04/09/2024 CBC (INCL UDES DIFF/ PLT) MPV 9.9 fL 7.5-12 .5 normal Not Available [facility] [place] [facility] [address] [facility], [place], [address], 04/09/2024 14:32:23 04/04/20 24 04/09/2024 CBC (INCL UDES DIFF/ PLT) absolute neutrophils 536 cells /uL 1500-7 800 low Not Available [facility] [place] [facility] [address], [place], [address], 04/09/2024 14:32:23 04/04/20 24 04/09/2024 CBC (INCL UDES DIFF/ PLT) absolute lymphocytes 7708 cells /uL 850-39 00 high Not Available [facility] [place] [facility] [address] [place], [address],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 Heart rate Oxygen saturation Oxygen saturation in Arterial blood by Pulse oximetry Body temperature Systolic blood pressure Diastolic blood pressure Provider Name and Address Organization Details Last Updated DateTime 5 185.42 cm 22.7 kg/m2 78099.9 9 g 83 /min 96 % 96 % 97.2 [degF] 129 mm[Hg] 83 mm[Hg] [facility] 5 09:38:49 Date Recorded Body height Body weight Heart rate Oxygen saturation Oxygen saturation in Arterial blood by Pulse oximetry Body temperature Systolic blood pressure Diastolic blood pressure Provider Name and Address Organization Details Last Updated DateTime 3 185.42 cm 50794.7 3 g 82 /min 98 % 98 % 97.9 [degF] 130 mm[Hg] 81 mm[Hg] [facility] 3 10:48:54 Date Recorded Body height Body mass index (BMI) Body weight Heart rate Oxygen saturation Oxygen saturation in Arterial blood by Pulse oximetry Body temperature Systolic blood pressure Diastolic blood pressure Provider Name and Address Organization Details Last Updated DateTime 4 185.42 cm 24 kg/m2 67297.2 1 g 85 /min 97 % 97 % 97.3 [degF] 129 mm[Hg] 83 mm[Hg] [facility] 4 11:10:36 Date Recorded Body height Body mass index (BMI) Body weight Heart rate Oxygen saturation Oxygen saturation in Arterial blood by Pulse oximetry Body temperature Systolic blood pressure Diastolic blood pressure Provider Name and Address Organization Details Last Updated DateTime 3 185.42 cm 25.5 kg/m2 17669.0 3 g 89 /min 96 % 96 % 97.8 [degF] 134 mm[Hg] 84 mm[Hg] [facility] 3 15:29:56 Social History Question Answer Notes LastModified by Organizat ion Details LastModified Time Tobacco Smoking Status Former Smoker quit 2016 Not Available [facility] 08/17/2020 03:11:20 Do You Have An Advance Directive? No [id number] Information not available 08/17/2020 Animal Exposure? Yes Information not available 01/18/2012 Auto Related Injury? No Information not available 01/18/2012 Is Blood Transfusion Acceptable In An Emergency? Yes [id number] Information not available 08/17/2020 What Is Your Level Of Caffeine Consumption? Occasional No Coffee Occasional Soda Pop [id number] Information not available 08/17/2020 How Much Tobacco Do You Chew? None [id number] Information not available 08/17/2020 Diabetes No Information no t available 01/18/2012 What Type Of Diet Are You Following? REGULAR [id number] Information not available 08/17/2020 Which Illicit Or Recreational Drugs Have You Used? None [id number] Information not available 08/17/2020 Education 8 Information no t available 01/18/2012 Family History Of Heart Disease? No Information not available 01/18/2012 Which Of Your Hands Is Dominant? Right [id number] Information not available 08/17/2020 High Blood Pressure No Information not available 01/18/2012 High Cholesterol No Information not available 01/18/2012 Live Alone Or With Others? With Others Information not available 01/18/2012 Marital Status Informatio n not available 01/18/2012 What Was The Date Of Your Most Recent Tobacco Screening? 06/13/2024 Information not available 06/15/2024 How Many Children Do You Have? 2 [id number] Information not available 08/17/2020 Are There Any Occupational Health Risks Where You Work? None [id number] Information not available 08/17/2020 Do You Use Your Seat Belt Or Car Seat Routinely? Yes [id number] Information not available 08/17/2020 Seat Belts Used Routinely Yes Information not available 01/18/2012 Are You Sexually Active? Yes [id number] Information not available 08/17/2020 Smoke Alarm In Home Yes Information not available 01/18/2012 At What Age Did You Start Smoking Tobacco? 14 [id number] Information not available 08/17/2020 Are You Passively Exposed To Smoke? Yes His Still Smokes Information not available 02/09/2019 How Much Tobacco Do You Smoke? No [id number] Information not available 08/17/2020 General Stress Level Low Information not available 01/18/2012 Do You Use Sunscreen Routinely? No [id number] Information not available 08/17/2020 How Many Years Have You Smoked Tobacco? 40 [id number] Information not available 08/17/2020 Sex: Unknown Functional Status Question Answer Note LastModified by Organization D etails LastModified Time What is your level of alcohol consumption? None [id number] Information not available 08/17/2020 Are you currently employed? No [id number] Information not available 08/17/2020 Are you able to care for yourself? Yes [id number] Information not available 08/17/2020 What is your occupation? disabled [id number] Information not available 08/17/2020 What is your exercise level? None [id number] Information not available 08/17/2020 Mental Status None recorded. Family History Relationship Description Onset Age of this Age Resolved Age Notes LastModified by Organization Details LastModified Time Father Malignant neoplastic disease 74 previo usly record ed as Cancer Not available 03/25/2016 17:41:59 Brother Problem 15 ran over (previ ously record ed as Other) Not available 03/25/2016 17:41:59 Medical History Condition Response Coronary Artery Disease N Gout N Kidney Stones N Blood Diseases N Hyperthyroidism N Depression N Hypothyroidism N COPD N Developmental or Behavioral Disorders N Eczema, Hives or other skin conditions N Anxiety Disorder N Muscle, Joint, or Bone Problems N Vision or Eye Problems N Arthritis N Serious Illness or Injuries N Congenital Anomalies N Cancer N Stroke N Bladder or Kidney Problems N Hospital Admission other than N High Cholesterol N Liver Disease N Fibromyalgia N Kidney Disease N Heart Problems N Ear or Hearing Problems N ADD or ADHD N Thyroid Problems N Skin Problems N Anemia N Constipation N Diabetes N Bedwetting N Seizures/Epilepsy Y Tuberculosis N Diverticulitis N Allergies N Asthma N GERD/Reflux N Heart Disease N Pulmonary Embolism N Hypertension N Osteoporosis N Chicken Pox N Immunizations Vaccine Type Date Status Note Provider Nam e and Address Organization Details Recorded Time Td (adult) 8 completed Not Available [facility] 07/10/2022 06:41:13 Influenza, split virus, quadrivalent, preservative 8 completed Not Available [facility] 11/08/2019 02:12:14 Influenza, recombinant, quadrivalent, PF 0 completed Not Available [facility] 08/03/2020 09:33:35 Influenza, recombinant, quadrivalent, PF 1 completed Not Available [facility] 08/12/2021 11:21:40 Influenza, recombinant, quadrivalent, PF 3 completed [facility] 04/12/2023 10:07:31 pneumococcal polysaccharide PPV23 2 completed Not Available [facility] 07/10/2022 06:41:13 Influenza, split virus, trivalent, preservative 6 completed Not Available [facility] 07/10/2022 06:41:13 Pneumococcal conjugate PCV 13 6 completed Not Available [facility] 07/10/2022 06:41:13 Pneumococcal conjugate PCV20, polysaccharide QVM337 conjugate, adjuvant, PF 5 completed Rowena Bourne MD [address] [facility], [facility], [place], [address], [facility] 01/06/2025 12:54:37 Tdap 4 completed Rowena Bourne MD 2016 [facility], [facility], [place], [address], [facility] 06/13/2024 12:02:56 Respiratory syncytial virus (RSV) vaccine, unspecified 4 completed Rowena Bourne MD [address], [address], [facility] 06/13/2024 12:04:52 Influenza, split virus, trivalent, preservative 2 completed Not Available [facility] 11/08/2019 02:12:11 Past Encounters Encounter ID Performer Location Encounter Start Date Encounter Closed Date Diagnosis/Indication Diagnosis SNOMED-CT Code Diagnosis ICD10 Code Diagnosis Note [id number] Warren Salazar MD [facility] [address] [id number] 01/18/2012 08:32:23 01/18/2012 14:55:21 [id number] Warren Salazar MD [address] [address] 07/23/2012 10:26:04 07/23/2012 16:06:49 [id number] Warren Salazar MD [address] [address] 08/29/2012 12:51:31 08/29/2012 14:24:25 [id number] Rowena Bourne MD [address] [address] 07/01/2013 11:20:56 07/01/2013 15:19:00 [id number] Rowena Bourne MD [address] [address] 12/23/2013 13:25:15 12/23/2013 15:17:00 Epilepsy 31217890 Tobacco de pendence syndrome 72954771 [id number] Rowena Bourne MD [address] [address] 01/12/2015 09:27:40 01/12/2015 14:56:42 Adult health examination 115090376 Seizure disorder 746148945 Tobacco de pendence syndrome 05615393 Screening for cancer 07137484 Screening for malignant neoplasm of prostate 751741609 [id number] Rowena Bourne MD [facility] [address] [address] 07/21/2015 09:07:10 07/22/2015 00:24:54 Epilepsy 77459427 Acute otitis media 1773269 [id number] Rowena Bourne MD [place] [address] 02/17/2016 11:11:04 02/21/2016 10:23:57 Adult health examination 911438306 Z00.01 Hyperlipidemia 95777216 E78.5 Epilepsy 93220169 G40.90 9 Tobacco de pendence syndrome 83353294 F17.290 [id number] Rowena Bourne MD [place] [address] 03/06/2016 09:42:33 03/06/2016 11:03:28 Epilepsy 48055526 G40.909 [id number] Rowena Bourne MD [place] [address] 03/24/2016 10:10:19 03/26/2016 12:12:51 Lung mass 635084341 R91.8 Mass of thyroid gland 23 7599408 E04.9 Epilepsy 43128756 G40.90 9 Tobacco de pendence syndrome 46896059 F17.290 Chronic ob structive pulmonary disease 87433589 J44.9 [id number] Rowena Bourne MD [place] [address] 08/24/2016 10:45:31 08/24/2016 14:43:38 Epilepsy 96902460 G40.909 Anemia 825302884 D64.9 Glucose le mehrdad outside reference range 975210480 R73.09 Hypomagnesemia 548605696 E83.42 Body mass index 20-24 - normal 650216139 Z68.22 [id number] Rowena Bourne MD [place] [address] 11/27/2016 13:38:30 11/27/2016 16:28:30 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, non-refractory 3014895343 04687 G40.401 Asthmatic bronchitis 405 199647 J45.909 [id number] Rowena Bourne MD [facility] [place] [address] 11/27/2017 10:13:08 11/28/2017 08:21:48 Adult health examination 077486127 Z00.01 Seizure disorder 9009979 02 G40.909 Active or passive immunization 291133318 Z23 Depression screening 171 497233 Z13.89 At low risk for fall 439 105664 Z91.81 Colonoscopy declined 324 5994876 19000 Z53.20 Body mass index 25-29 - overweight 587465165 Z68.26 Abnormal b lood pressure 51491891 Z01.31 [id number] Rowena Bourne MD [facility] [address] [place] [address] 03/25/2018 09:49:45 03/26/2018 08:32:01 Sciatica 08142464 M54.32 Idiopathic peripheral neuropathy 92565208 G60.9 Glucose le mehrdad outside reference range 913866962 R73.09 Seizure disorder 9575722 02 G40.909 Body mass index 25-29 - overweight 120828991 Z68.25 [id number] Rowena Bourne MD [facility] [address] [place] [address] 02/07/2019 10:12:38 02/09/2019 21:21:26 Adult health examination 694583999 Z00.01 Bursitis o f olecranon of left elbow 4458879888 50949 M70.22 Pain of ri ght shoulder joint 8405345161 3269198 M25.511 Seizure disorder 5902615 02 G40.909 Gastroesop hageal reflux disease 520172331 K21.9 Depression screening 171 682174 Z13.89 Colonoscopy declined 955 3413423 99851 Z53.20 Body mass index 25-29 - overweight 974438724 Z68.26 Abnormal b lood pressure 25658953 Z01.31 [id number] Rowena Bourne MD [facility] [address] [place] [address] 03/05/2020 10:57:01 03/05/2020 16:00:41 Adult health examination 063804607 Z00.01 Seizure disorder 9474779 02 G40.909 Depression screening 171 167113 Z13.89 Colonoscopy declined 354 8488589 73809 Z53.20 Body mass index 25-29 - overweight 321868668 Z68.28 Abnormal b lood pressure 88208877 Z01.31 [id number] Rowena Bourne MD [place] [address] 08/03/2020 09:31:36 08/06/2020 09:10:10 Administration of influenza vaccine 45970143 Z23 Gastroesop hageal reflux disease 304004868 K21.9 Seizure disorder 0965181 02 G40.909 [id number] Rowena Bourne MD [facility] [place] [address] 03/08/2021 13:25:18 03/08/2021 15:01:54 Adult health examination 649871707 Z00.01 Seizure disorder 1168883 02 G40.909 Depression screening 171 077859 Z13.89 Colonoscopy declined 750 0521935 36159 Z53.20 Body mass index 25-29 - overweight 659587985 Z68.29 Abnormal b lood pressure 54111512 Z01.31 Hypertensi on screening 275818269 Z13.6 [id number] Rowena Bourne MD [place] [id number] 08/12/2021 10:26:13 08/15/2021 08:17:27 Administration of influenza vaccine 85933575 Z23 [id number] Rowena Bourne MD [place] [id number] 03/17/2022 13:25:05 03/21/2022 07:47:45 Adult health examination 521042229 Z00.01 Seizure disorder 8783367 02 G40.909 Depression screening 171 974974 Z13.89 Colonoscopy declined 583 2762831 88527 Z53.20 Body mass index 25-29 - overweight 975554379 Z68.28 Essential hypertension 85245555 I10 [id number] Rowena Bounre MD [place] [address] 04/09/2023 10:23:34 04/10/2023 08:40:18 Fatigue 21685513 R53.83 Adult heal th examination 720751135 Z00.01 Seizure disorder 5111553 02 G40.909 Depression screening 171 940529 Z13.89 Colonoscopy declined 519 7681195 21679 Z53.20 Body mass index 25-29 - overweight 887766521 Z68.28 Essential hypertension 70949172 I10 Screening for cardiovascular system disease 718345677 Z13.6 [id number] Rowena Bourne MD [facility] [address] [place] [address] 09/25/2023 15:28:06 09/27/2023 08:49:13 Seizure disorder 514215494 G40.909 History of pneumonia 161 619286 Z87.01 Immunization advised 310 049107 Z71.9 [id number] Rowena Bourne MD [facility] [address] [address] 06/13/2024 11:09:07 06/16/2024 10:06:09 Adult health examination 404208498 Z00.01 Seizure disorder 8533853 02 G40.909 Depression screening 171 118785 Z13.89 Colonoscopy declined 099 0595290 97788 Z53.20 Essential hypertension 84523972 I10 Screening for cardiovascular system disease 276682796 Z13.6 Body mass index 20-24 - normal 221649182 Z68.24 Gastroesop hageal reflux disease 202536606 K21.9 [id number] Rowena Bourne MD [facility] [address] [address] 12/25/2024 10:16:29 12/25/2024 13:44:28 Post-discharge follow-up 156303378 Z09 Transition of care 08822 18415 105 Z75.8 Seizure disorder 4852412 02 G40.909 Essential hypertension 48642908 I10 Hyperlipidemia 15995942 E78.5 Long-term current use of drug therapy 151585541 Z79.899 Gastroesop hageal reflux disease 626351750 K21.9 Medication review done by doctor 737646685 Z76.89 History of myocardial infarction 224733577 I25.2 [id number] Rowena Bourne MD [address] [address] 01/06/2025 08:53:32 01/06/2025 13:59:28 Seizure disorder 676309433 G40.909 Essential hypertension 39107328 I10 History of myocardial infarction 434251144 I25.2 Active or passive immunization 699456227 Z23 Health Concerns Section Related Observation LastModified by Organization Detai ls LastModified Time None Recorded Concern Status LastModified by Organization Details LastModified Time None Recorded Advance Directives Directive N: Payers Encounter Date Sequence Insurance Name Policy Number Policy Kelley Covered Member ID Kelley Member ID Guarantor Name 04/09/2023 1 [place] Manuel E Veena [id number] Manuel E Veena 04/09/2023 2 [place] [facility] [place]/TRADITIO NAL Manuel E Veena [id number] Manuel E Veena 09/25/2023 1 [place] Manuel E Veena [id number] Manuel E Veena 09/25/2023 2 [place]TRADITIO NAL Manuel E Veena [id number] Manuel E Veena 06/13/2024 1 [place] Manuel E Veena [id number] Manuel E Veena 06/13/2024 2 [place]TRADITIO NAL Manuel E Veena [id number] Manuel E Veena 12/25/2024 1 [place] Manuel E Veena [id number] Manuel E Veena 12/25/2024 2 [place]TRADITIO NAL Manuel E Veena [id number] Manuel E Veena 01/06/2025 1 [place] Amnuel E Veena [id number] Manuel E Veena 01/06/2025 2 [place]/TRADITIO NAL Manuel E Veena [id number] Manuel E Veena Notes Date Note Type Note Provider Name and Address Organization Details Recorded Time 09/25/2023 text/html he went to hospital on Sunday morning a week ago and went back that night with inability to swallow and he had a terrible seizure Sunday night They pumped blood out of his stomach and diagnosed with pneumonia and he spent 3 nights in hospital in [place]. Feels better and completed the levaquin. He had stopped his dilantin and Keppra at least 2 weeks before and went to and he could not swallow it so that is why he stopped it. He can swallow OK now so is restarting it and taking Nystatin liquid as he has had significant thrush. He had stopped all meds because could not swallow Better now. Feeling better now Rowena Bourne MD [address] [facility], [address], [place], [address], [facility] [facility] 09/25/2023 23:10:40 12/25/2024 text/html he was recently was in [facility] with seizures and was in Status Epilepticus and his rescue meds did not work. He seized apparently all night long and he finally agreed to go to hospitalThey worked him up thoroughly and he apparently had an PA and had pneumonia and sinus/ear in- fections. He feels better now and states he has no intention to follow up with the handle attacher there.They did increase the Keppra from 3 to 4 daily and he has not had further seizures since then. It had been quite a while since he had had any prolonged seizures.He was in [facility] for a full night and day. He had a NSTEMI with elevated troponin and bilateral pneumonia L>R.He apparently had been coughing some before he ended up getting hospitalized.He completed the Augmentin antibiotic Rowena Bourne MD [address] [facility], [address], [place], [address], [facility] 12/25/2024 13:36:55 01/06/2025 text/html he seems to be tolerating his new medication changes for the recent non STEMI.The dilantin level is unusually low.Denies chest pain or shortness of breath or swellingNo headaches and only one very mild seizure.Plans to start walking some again as had stopped. Rowena Bourne MD [address] [facility], [address], [place], [address], FABIEN - [facility] 01/06/2025 12:57:03
--- NOTE | 2025-03-25 01:59 | PC.NURSE ---
Pt aware of plans for admission Sleeping when undisturbed at this time seizure precautions remain in place Pt in ST per continuous heart monitor
--- NOTE | 2025-03-25 02:08 | PC.NURSE ---
Report given to LUIGI Collins
--- NOTE | 2025-03-25 02:16 | P.HP_ITS ---
<Statement entered by Gideon Mcdaniels MD - 03/30/25 17:47> Personally evaluated the patient and agree with the plan of care as outlined by the [employer]UER. History of Present Illness *Admission Date: 03/25/25 *Reason for visit:: Seizure *History of present illness: This is a 64-year-old male who is well-known to our service line and has a past medical history significant for heart failure with reduced ejection fracture, erosive esophagitis, elevated liver enzymes, seizure disorder, CVA with left-sided residual, thyroid mass, and NSTEMI who presents with a chief complaint of multiple seizures. Due to patient's symptoms, he was transitioned to the emergency room via EMS. EMS reports that patient had at least a seizures prior to arrival. Room air saturations during their evaluation revealed a room air saturation of 90%, so patient was placed on supplemental oxygen. The emergency room, patient had a presenting temperature of 103 and he was tachycardic. There was a suspicion for sepsis, so ER provider contacted hospital medicine for further management. During my evaluation of the patient, patient states he was here because of multiple seizures. He reports that he has been compliant with his home antiepileptic medication. Patient states for the last 1 to 2 days he has had a subjective fever but he could not voice how high his temperature was. He states he is felt unwell for the past 24 to 48 hours. Review of patient's outpatient medication shows he was prescribed Keppra 1 g twice daily and phenytoin 300 mg p.o. nightly. Patient received 3 g Keppra IV while in the emergency room. Per my read, chest x-ray is negative for any acute cardiopulmonary process-is pending final read by the radiologist. Additional pertinent values obtained include a red blood cell count of 4.24, hemoglobin 12.6, hematocrit 37.5, sodium 135, blood glucose 145, calcium of 8.2, alkaline phosphate of 332, and albumin 3.4. It is worth mentioning a duration of the seizure was approximately 1 to 2 minutes. [facility] Disclaimer: The information contained in this section may have been updated after the patient was seen, as this information can be updated by other users. Medical History Erosive esophagitis Seizure disorder Elevated liver enzymes Acute upper gastrointestinal bleeding Left thyroid nodule Neutropenia Breakthrough seizure [place] esophagitis Transaminitis Tongue ulcer Candidiasis of mouth Pneumonia Surgical History History of surgery on lower extremity History of surgery of head Family History Other Cancer Social History (Updated 03/25/25 @ 02:39 by Temi Lam RN) Smoking Status: Former smoker tobacco type: cigarettes packs per day: 1 alcohol intake: former substance use type: denies use current occupational status: other Travel in the last 8 weeks?: None Contact w/someone who lives/traveled outside [place] past 30 days?: No Exposure to someone with infectious disease in past 14 days?: No Do you have a fever (greater than 100.4 F or 38 C)?: Yes Have you tested positive for COVID-19?: No Exposed to someone with COVID-19 in past 14 days?: No Do you have a sore throat?: No Do you have a cough?: No Do you have any weakness?: No Are you experiencing any nausea/vomitting?: No Do you have any diarrhea?: No Are you experiencing any unusual bleeding?: No Do you have any muscle aches/pain?: No Do you have any abdominal pain?: No Are you experiencing loss of taste or smell?: No Other Medical History Have you received the Flu Vaccine for this season: No Have you received the Pneumonia Vaccine: No Review of Systems Review of Systems Review of systems:: pertinent systems reviewed and negative unless documented below Constitutional Constitutional: Reports chills and Reports fever(s) Eyes Eyes: Reports system reviewed and no additional complaints, except as documented ENT Ears, Nose, Mouth, and Throat: Reports system reviewed and no additional complaints, except as documented *Cardiovascular Cardiovascular: Reports system reviewed and no additional complaints, except as documented *Respiratory Respiratory: Reports system reviewed and no additional complaints, except as documented *Gastrointestinal Gastrointestinal: Reports system reviewed and no additional complaints, except as documented *Genitourinary Genitourinary: Reports system reviewed and no additional complaints, except as documented *Musculoskeletal Musculoskeletal: Reports abnormal gait Comments: Left-sided weakness from prior stroke Integumentary/Breasts Skin/Breast: Reports system reviewed and no additional complaints, except as documented *Neurologic Neurologic: Reports abnormal gait Psychiatric Psychiatric: Reports system reviewed and no additional complaints, except as documented Endocrine Endocrine: Reports system reviewed and no additional complaints, except as documented Hematologic/Lymphatic Hematologic/Lymphatic: Reports system reviewed and no additional complaints, except as documented Allergic/Immunologic Allergic/Immunologic: Reports system reviewed and no additional complaints, except as documented Meds Home Medications and Allergies Home Medications ?Medication ?Instructions ?Recorded ?Confirmed ?Type diazepam 10 mg tablet 10 mg PO BIDP PRN Seizures 1 11/16/22 12/10/24 History phenytoin sodium extended 100 mg 200 mg PO DAILY 09/1612/10/24 History capsule phenytoin sodium extended 100 mg 300 mg PO HS 09/16/23 12/10/24 History capsule pantoprazole 40 mg tablet,delayed 40 mg PO BID #30 tab s 09/19/23 12/10/24 Rx release (Protonix) amoxicillin 875 mg-potassium 1 tab PO BID 4 days #8 ta bs 12/12/24 Rx clavulanate 125 mg tablet aspirin 81 mg tablet,delayed 81 mg PO DAILY 30 days #3 0 tabs 12/12/24 Rx release atorvastatin 40 mg tablet 80 mg (2 x 40 mg) PO HS 30 d ays 12/12/24 Rx #60 tabs clopidogrel 75 mg tablet 75 mg PO DAILY 30 days #30 t abs 12/12/24 Rx levetiracetam 500 mg tablet 1,000 mg (2 x 500 mg) PO B ID 30 12/12/24 Rx (Keppra) days #120 tabs metoprolol succinate 25 mg 25 mg PO DAILY 30 days #30 tabs 12/12/24 Rx tablet,extended release 24 hr sacubitril 24 mg-valsartan 26 mg 1 tab PO BID 30 days #60 tabs 12/12/24 Rx tablet (Entresto) New Prescriptions to Start Prescriptions: Allergies Allergy/AdvReac Type Severity Reaction Status Date / Time phenobarbital Allergy Severe Swelling Verified 12/10/24 11:41 of Lip/Tongue/Throat Exam Data for Last 24 hours Vital signs and Labs for Last 24 Hours: Temp Pulse Resp BP Pulse Ox O2 Del Method 100.5 F H 100 H 20 113/63 95 Room Air 03/25/25 02:15 03/25/25 02:15 03/25/25 02:15 03/25/25 02:15 03/25/25 01:30 03/25/25 02:15 Laboratory Results - last 24 hr 03/25/25 00:30: WBC 8.4, RBC 4.24 L, Hgb 12.6 L, Hct 37.5 L, MCV 88.4, MCH 29.7, MCHC 33.6, RDW 16.3, Plt Count 209, MPV 9.6, Neut % (Auto) 47.4, Lymph % (Auto) 44.1, Hayes % (Auto) 6.9, Eos % (Auto) 1.2, Baso % (Auto) 0.2, Neut # (Auto) 4.0, Lymph # (Auto) 3.7, Hayes # (Auto) 0.6, Eos # (Auto) 0.1, Baso # (Auto) 0.0, PT 10.9, INR 0.98, Sodium 135 L, Potassium 4.0, Chloride 102, Carbon Dioxide 29, Anion Gap 8.0, BUN 7 L, Creatinine 0.50 L, Estimated Creat Clear 81, Estimated GFR 167, Est GFR ( Amer) 203, Glucose 145 H, Lactate 2.1, Calcium 8.2 L, Total Bilirubin 0.6, AST 39, ALT 25, Alkaline Phosphatase 332 H, Total Creatine Kinase 87, Total Protein 7.9 D, Albumin 3.4 L, Globulin 4.5 H, Albumin/Globulin Ratio 0.8 L, Urine Color Yellow, Urine Appearance Clear, Urine pH 7.0, Ur Specific [place] 1.015, Urine Protein Negative, Urine Glucose (UA) Negative, Urine Ketones Negative, Urine Blood Negative, Urine Nitrate Negative, Urine Bilirubin Negative, Urine Urobilinogen 0.2, Ur Leukocyte Esterase Negative, Urine WBC Occasional, Ur Squamous Epith Cells 3-5, Urine Bacteria Trace 03/25/25 00:38: VBG pH 7.40, VBG pCO2 43.8, VBG pO2 34.3, VBG HCO3 26.3, VBG Total CO2 27.6 H, VBG O2 Saturation 67.0, VBG Base Excess 1.4, VBG Lactic Acid 2.6 H I & O for Last 24 hours: Intake & Output 03/22/25 03/23/25 03/24/25 03/25/25 23:59 23:59 23:59 23:59 Weight 77.111 kg Constitutional Constitutional: no acute distress and cooperative *Routine HEENT Exam Head: Present normocephalic and atraumatic Eye: Present EOMI and PERRL ENT: Present mucous membranes moist *Routine Neck Exam Neck: Present supple, full ROM and trachea midline *Routine Respiratory Exam Respiratory: Present diminished air movement, able to speak in complete sentences and symmetric chest movement *Routine Cardiovascular Exam Cardiovascular: Present RRR, Normal S1, Normal S2 and tachycardia *Routine Abdominal Exam Abdominal: Present soft and normoactive bowel sounds *Routine Rectal Exam Rectal:: deferred *Routine Genitalia Exam Genitalia:: deferred *Routine Extremities Exam Extremities: Present full ROM, pulses intact and normal capillary refill Routine Back/Spine/Pelvis Exam Back/Spine: Present full ROM *Routine Skin Exam Skin: Present intact, dry and normal turgor *Routine Neurological Exam Neurological: Present alert, oriented X3 and CN II-XII intact Routine Psychiatric Exam Psychiatric: Present normal affect, normal thought process, cooperative, good insight and good judgment H&P: Result Impressions This is a 64-year-old male who has a known seizure history who presents with breakthrough seizures and fever of 103. Patient reports fever at home with minor illness Assessment and Plan *Assessment and plan (1) Seizure: Status: Acute Category: Medical Code(s): R56.9 - Unspecified convulsions (2) Fever: Status: Acute Qualifiers: Fever type: unspecified Qualified Code(s): R50.9 - Fever, unspecified Category: Medical Code(s): R50.9 - Fever, unspecified (3) Sinus tachycardia: Status: Acute Category: Medical Code(s): R00.0 - Tachycardia, unspecified Plan Assessment: Seizure - Patient is having breakthrough seizures and is compliant with home regimen - He was given 3 g of Keppra IV while in the emergency room will continue his home regimen of 1 g twice daily IV - Obtain phenytoin level rule out phenytoin toxicity - Place on seizure precautions - Place patient on cardiac telemetry -Repeat venous lactic acid to rule out any ongoing seizure -Obtain prolactin Fever - Source of infection is not clear - Respiratory panel is pending - Will obtain procalcitonin - Possibly postictal fever?? - Conversely, patient did state he had a fever at home but he could not state how high it was. He did not take any antipyretics for the fever -Blood cultures x 2. Will monitor cultures -Will consider LP if blood cultures are positive Sinus tachycardia -Will restart beta-thelma Chronic systolic dysfunction congestive heart failure: HFrEF -Patient's last left heart cath was performed to rule out or unearth because of thrombus - 2D echo failed to reveal any PFO, so DAPT therapy was initiated instead of DOAC -Will hold off on bolus due to patient is normotensive and history of heart failure with reduced ejection fraction -Last echo revealed a EF of 35-40% -Will continue goal-directed therapy once med rec is updated Plan: Admit patient to the MedSurg unit on telemetry Seizure precaution Activity as tolerated Saline lock vital signs every 4 hours Cardiac diet CBC/CMP daily Obtain phenytoin level Since there is no source of infection, will hold off on any further antibiotics Patient did receive 2 g of cefepime, 500 mg of metronidazole, and 1.25 g of v ancomycin-this is subject to change per attending Will guide antibiotic therapy according to blood cultures, continued fever, and procalcitonin elevation Full code I will discuss this case with attending physician Dr. Mcdaniels and I look forward to more input
--- NOTE | 2025-03-25 02:21 | PC.NURSE ---
Patient arrived to floor via stretcher from ED at 02:18.
--- NOTE | 2025-03-25 03:41 | PC.NURSE ---
med rec not done due to patient not knowing what medications he takes, patient states my takes care of all of that
[2025-03-25 04:47] LABS: Reflex Lactic Add Lactic Reflex
[2025-03-25 06:36] LABS: Basophils % 0.3 % (0.1-2.0); Eosinophils % 0.2 % (0.1-12.0); Hemoglobin 11.4 g/dL (14.1-18.0); Immature Granulocytes # 0.04 10^3uL; Immature Granulocytes % 0.3 %; Lymphocytes # 5.2 K/mm3 (0.7-4.5); Lymphocytes % 43.8 % (10-50); Mean Corpuscular HGB Conc 33.5 g/dL (31.8-35.4); Mean Corpuscular Hemoglobin 29.4 pg (27.0-31.2); Mean Corpuscular Volume 87.6 fl (80-94); Mean Platelet Volume 10.3 fl (7.4-10.4); Monocytes # 1.2 K/mm3 (0.1-1.0); Monocytes % 9.6 % (1.7-9.3); Neutrophils # 5.5 K/mm3 (1.8-7.8); Neutrophils % 45.8 % (37.0-80.0); Nucleated Red Blood Cells # 0 10^3/uL; Nucleated Red Blood Cells % 0 %; Platelet Count 192 K/mm3 (142-424); Red Blood Count 3.88 M/mm3 (4.60-6.20); Red Cell Distribution Width 16.3 % (11.5-17.5); Red Cell Distribution Width-SD 52.6 fL; White Blood Count 11.9 K/mm3 (4.8-10.8)
[2025-03-25 06:45] LABS: Lactic Acid Follow Up (RFLX 1) 1.5 mmol/L (0.7-2.1)
[2025-03-25 06:56] LABS: Albumin Level 2.8 g/dl (3.5-5.0); Chloride 107 mmol/L (98-107); Potassium 3.8 mmoL/L (3.5-5.1); Sodium 135 mmol/L (136-145)
[2025-03-25 06:58] LABS: Alanine Aminotransferase 22 U/L (12-78); Albumin/Globulin Ratio 0.7 (1.1-1.8); Alkaline Phosphatase 289 U/L (38-126); Anion Gap 6.8 mEq/L (5-15); Aspartate Amino Transferase 37 U/L (17-59); Bilirubin,Total 0.7 mg/dl (0.2-1.3); Blood Urea Nitrogen 7 mg/dl (9-20); Carbon Dioxide 25 mmol/L (22.0-30.0); Creatinine Clearance Estimated 81 mL/min (50-200); Estimated Glomerular Filt Rate 217 ml/min (>60); GFR (African American) 262 ML/MIN (>60); Globulin 3.8 g/dL (1.3-3.2); Total Protein,Serum 6.6 g/dl (6.3-8.2)
[2025-03-25 06:59] LABS: Calcium 7.9 mg/dl (8.4-10.2); Glucose 113 mg/dl (74-100)
[2025-03-25 07:04] LABS: MANUAL DIFFERENTIAL MANUAL DIFFERENTIAL (MANUAL DIFF)
--- NOTE | 2025-03-25 07:25 | HMH.PHAINT1 ---
Pharmacy Intervention Comments: HOME MEDICATION LIST VERIFIED USING LIST FROM OUTPATIENT PHARMACY
[2025-03-25 08:17] LABS: Lymphocytes % 50 % (10-50); Neutrophils % 50 % (42-76); Total Cells Counted 100
[2025-03-25 08:18] LABS: Platelet Estimate Normal; RBC Morphology Normal
[2025-03-25] MEDS: levETIRAcetam 1,000 MG in 0.9 % SODIUM CHLORIDE 100 ML 220 MG IV ×2 (08:59→20:25)
[2025-03-25 09:13] LABS: Phenytoin (Dilantin) 10.1 ug/ml (10-20)
[2025-03-25 09:27] LABS: Procalcitonin 1.15 ng/mL (0.0-2.0)
[2025-03-25] MEDS: ENOXAPARIN 40MG/0.4ML SYRINGE 40 MG SUBCUT (09:45)
--- NOTE | 2025-03-25 10:37 | HMH.PTEV ---
Physical Therapy Evaluation Rehab PT IP Evaluation Start: 03/25/25 02:54 Freq: ONCE Status: Active Protocol: Document 03/25/25 09:35 GENARO (Rec: 03/25/25 10:36 PHORODOLFO [id number]) Subjective/History History History This is a 64-year-old male who is well-known to our service line and has a past medical history significant for heart failure with reduced ejection fracture, erosive esophagitis, elevated liver enzymes, seizure disorder, CVA with left-sided residual, thyroid mass, and NSTEMI who presents with a chief complaint of multiple seizures. Also concern for sepsis. Patient states that he lives at home with his . He has no RASHIDA his home. He requires some assistance from his for dressing, bathing, and other ADLs. He was previously using a walking stick, but uses a walker for household distances at this time. Subjective Subjective Patient presents resting supine in bed, alert and oriented x4. He states that he is willing to participate with PT this morning. He has no verbal c/o pain at this time. [facility] How much help from another person do you currently need... Turning from your None back to your side while in a flat bed without using bedrails? Moving from lying on A little back to sitting on the side of a flat bed without using bedrails? Moving to and from a A little bed to a chair ( including a wheelchair)? Standing up from a A little chair using your arms? (e.g., wheelchair, bedside chair) Walking in hospital A little room? Climbing 3-5 steps A little with a railing? Mobility Score 19 Mobility Level [facility] Mobility 6 Walk 10 steps or more Mobility Calculator Rehab PT IP Eval Objective Appearance Patient Behavior Appropriate,Cooperative Patient Orientation Person,Place,Birthday Difficulty following none instructions Speech Pattern Clear,Appropriate,Coherent Ambulation Patient Able to Yes Ambulate Ambulation Observation IP General Gait Wide Based Gait Pattern Observation Ambulation Distance 10 (feet) Ambulation Assistive Rolling Walker Device Ambulation Ability Minimal x 2 (25% assist) Balance Ability to Arise Able, uses arms to help Sitting Balance Steady, safe Standing Balance Steady, wide stance Dynamic Sitting Normal Balance Ability Dynamic Standing Good Balance Ability Transfers Bed Transfer Ability Independent Sit to Stand Bed Minimal x 2 (25% assist) Transfer Ability MMT RLE PT MMT WFL LLE PT MMT WFL Rehab PT IP prob,goals,plan Problems Date of Evaluation: 03/25/25 PT IP Problems Bed Mobility,Transfers,Gait,Balance,Safety Rehab Potential Rehab Potential Good Plan PT Intervention Plan Bed Mobility,Transfers,Gait,Balance,Safety,Therapeutic Exercise PT Plan Frequency Daily Duration LOS Discharge Goals Bed Transfer Ability Independent Sit to Stand Chair Minimal x 1 (25% assist) Transfer Ability Ambulation Distance 20 (feet) Discharge Plan PT Discharge Plan Patient is currently most appropriate to return home once medically stable for d/c with family assistance. Patient is close to baseline with overall mobility. Skilled acute therapy is currently indicated at this time to improve LE strength, endurance, and safety awareness to return to OF with all mobility and decrease caregiver burden. Eval Complexity Eval Charge Codes 55821 - High Complexity PHYSICIAN CERTIFICATION: I certify the specified therapy services for Manuel Curiel are required, authorized, and reviewed every 30 days.
[2025-03-25] MEDS: ACETAMINOPHEN 325MG TAB 650 MG PO (12:12)
[2025-03-25 15:42] LABS: Monoscreen (Rapid) Negative (Negative)
[2025-03-25 15:43] LABS: Strep Scrn Group A (Rapid) Negative (Negative)
[2025-03-25] MEDS: PHENOL THROAT SPRAY 177 ML BOTTLE MM (18:04)
--- NOTE | 2025-03-25 19:07 | EXP.EVENT.NO ---
Manuel Curiel is a 64-year-old male who presents with fevers, weakness, and breakthrough seizures at home. Found to have fever of unknown origin, tachycardia. Continues to have fevers. Follow-up on blood, urine, respiratory cultures. Continue empiric treatment with cefepime, doxycycline. Currently seizure-free. Continue home phenytoin, Keppra. Seizure precautions. Alert, oriented, comfortable., Pleasant.
[2025-03-25] MEDS: DOXYCYCLINE HYCL 100 MG TABLET PO (20:43)
[2025-03-25] MEDS: SODIUM CHLORIDE 0.9% 10ML FLUSH SYRINGE 10 ML IV (21:39)
[2025-03-25] MEDS: ONDANSETRON 4MG/2ML VIAL 4 MG IV (21:39)
[2025-03-26] VITALS (7 sets, daily range): BP systolic 119–124; BP diastolic 64–72; PULSE 90–98; RESP 13–20; TEMP 36.8–37.3; O2SAT 68–97; BMI 22.6
[2025-03-26] MEDS: CEFEPIME HCL 2 GM in 0.9 % SODIUM CHLORIDE 100 ML IV ×2 (02:32→08:02)
--- NOTE | 2025-03-26 06:15 | PC.NURSE ---
Pt. is alert and orientated x 4. Pt. had previous stroke and has left sided weakness. Pt. was on room air but O2 sats decreasing while sleeping. Pt. on O2 3 liters per NC. O2 sats dipped to 68-80's. than came back up to 90's. Pt. denies any trouble breathing. Pt. was febrile most of this shift. Fever has finally resolved. Pt. monitored for seizures. No seizures overnight. seizure pads in place. Pt. 's at bedside. Personal items and call mackenzie in reach.
[2025-03-26 06:20] LABS: Basophils % 0.2 % (0.1-2.0); Eosinophils % 0.8 % (0.1-12.0); Hematocrit 34.1 % (42.0-52.0); Immature Granulocytes # 0 10^3uL; Immature Granulocytes % 0 %; Lymphocytes # 2.9 K/mm3 (0.7-4.5); Lymphocytes % 57.3 % (10-50); Mean Corpuscular HGB Conc 32.3 g/dL (31.8-35.4); Mean Corpuscular Hemoglobin 28.5 pg (27.0-31.2); Mean Corpuscular Volume 88.3 fl (80-94); Monocytes # 0.3 K/mm3 (0.1-1.0); Monocytes % 5.3 % (1.7-9.3); Neutrophils # 1.9 K/mm3 (1.8-7.8); Neutrophils % 36.4 % (37.0-80.0); Nucleated Red Blood Cells # 0 10^3/uL; Nucleated Red Blood Cells % 0 %; Platelet Count 162 K/mm3 (142-424); Red Blood Count 3.86 M/mm3 (4.60-6.20); Red Cell Distribution Width 16.5 % (11.5-17.5); Red Cell Distribution Width-SD 53.6 fL; White Blood Count 5.1 K/mm3 (4.8-10.8)
[2025-03-26 06:36] LABS: Albumin Level 2.7 g/dl (3.5-5.0); Chloride 105 mmol/L (98-107); Potassium 3.3 mmoL/L (3.5-5.1); Sodium 134 mmol/L (136-145)
[2025-03-26 06:39] LABS: Alanine Aminotransferase 17 U/L (12-78); Albumin/Globulin Ratio 0.7 (1.1-1.8); Alkaline Phosphatase 240 U/L (38-126); Anion Gap 5.3 mEq/L (5-15); Aspartate Amino Transferase 30 U/L (17-59); Bilirubin,Total 1.2 mg/dl (0.2-1.3); Blood Urea Nitrogen 9 mg/dl (9-20); Carbon Dioxide 27 mmol/L (22.0-30.0); Creatinine Clearance Estimated 84 mL/min (50-200); Estimated Glomerular Filt Rate 167 ml/min (>60); GFR (African American) 203 ML/MIN (>60); Globulin 3.7 g/dL (1.3-3.2); Total Protein,Serum 6.4 g/dl (6.3-8.2)
[2025-03-26 06:40] LABS: Calcium 7.9 mg/dl (8.4-10.2); Glucose 98 mg/dl (74-100)
[2025-03-26] MEDS: ENOXAPARIN 40MG/0.4ML SYRINGE 40 MG SUBCUT (08:01)
[2025-03-26] MEDS: DOXYCYCLINE HYCL 100 MG TABLET PO (08:02)
[2025-03-26 08:16] LABS: Prolactin 3.6 ng/mL (3.6-25.2)
[2025-03-26] MEDS: levETIRAcetam 1,000 MG in 0.9 % SODIUM CHLORIDE 100 ML 220 MG IV (09:43)
[2025-03-26] MEDS: PHENOL THROAT SPRAY 177 ML BOTTLE MM (09:45)
[2025-03-26] MEDS: POTASSIUM CHLORIDE 20MEQ TAB 40 MEQ PO (10:54)
--- NOTE | 2025-03-26 11:33 | EXP.DC.SUM ---
General Admission date:: 03/25/25 HPI HPI HPI: This is a 64-year-old male who is well-known to our service line and has a past medical history significant for heart failure with reduced ejection fracture, erosive esophagitis, elevated liver enzymes, seizure disorder, CVA with left-sided residual, thyroid mass, and NSTEMI who presents with a chief complaint of multiple seizures. Due to patient's symptoms, he was transitioned to the emergency room via EMS. EMS reports that patient had at least a seizures prior to arrival. Room air saturations during their evaluation revealed a room air saturation of 90%, so patient was placed on supplemental oxygen. The emergency room, patient had a presenting temperature of 103 and he was tachycardic. There was a suspicion for sepsis, so ER provider contacted hospital medicine for further management. During my evaluation of the patient, patient states he was here because of multiple seizures. He reports that he has been compliant with his home antiepileptic medication. Patient states for the last 1 to 2 days he has had a subjective fever but he could not voice how high his temperature was. He states he is felt unwell for the past 24 to 48 hours. Review of patient's outpatient medication shows he was prescribed Keppra 1 g twice daily and phenytoin 300 mg p.o. nightly. Patient received 3 g Keppra IV while in the emergency room. Per my read, chest x-ray is negative for any acute cardiopulmonary process-is pending final read by the radiologist. Additional pertinent values obtained include a red blood cell count of 4.24, hemoglobin 12.6, hematocrit 37.5, sodium 135, blood glucose 145, calcium of 8.2, alkaline phosphate of 332, and albumin 3.4. It is worth mentioning a duration of the seizure was approximately 1 to 2 minutes. Hospital Course Hospital Course Hospital Course: Manuel Curiel is a 64-year-old male who presents with fevers, weakness, and breakthrough seizures at home and admitted for the same. #Fever of unknown origin #Breakthrough seizures #Epilepsy ? Presented with several day onset of fevers, weakness, breakthrough seizures. No focal infectious findings. ? Did have a temperature of 100.3 Fahrenheit on admission, started on empiric vancomycin, cefepime. Infectious workup unremarkable. Wean antibiotics to doxycycline. ? No further episodes of seizures, fevers. ? Discharged with doxycycline for 4 more days. ? Continue home phenytoin 3 mg in the morning, 200 mg at night, Keppra 500 mg in the morning, 1000 mg nightly. #GERD ? Continue home PPI. Exam Data for Last 24 hours Vital signs and Labs for Last 24 Hours: Temp Pulse Resp BP Pulse Ox O2 Del Method O2 Flow Rate 98.3 F 94 H 20 120/72 94 L Room Air 3 03/26/25 08:00 03/26/25 08:00 03/26/25 08:00 03/26/25 08:00 03/26/25 08:00 03/26/25 09:50 03/26/25 08:00 Laboratory Results - last 24 hr 03/25/25 06:10: Prolactin 3.6, Monoscreen Negative 03/25/25 15:27: Group A Strep Rapid Negative 03/26/25 06:00: WBC 5.1 D, RBC 3.86 L, Hgb 11.0 L, Hct 34.1 L, MCV 88.3, MCH 28.5, MCHC 32.3, RDW 16.5, Plt Count 162, MPV 10.0, Neut % (Auto) 36.4 L, Lymph % (Auto) 57.3 H, [place] % (Auto) 5.3, Eos % (Auto) 0.8, Baso % (Auto) 0.2, Neut # (Auto) 1.9, Lymph # (Auto) 2.9, [place] # (Auto) 0.3, Eos # (Auto) 0.0, Baso # (Auto) 0.0, Sodium 134 L, Potassium 3.3 L, Chloride 105, Carbon Dioxide 27, Anion Gap 5.3, BUN 9 D, Creatinine 0.50 L D, Estimated Creat Clear 84, Estimated GFR 167, Est GFR ( Amer) 203 D, Glucose 98, Calcium 7.9 L, Total Bilirubin 1.2, AST 30, ALT 17, Alkaline Phosphatase 240 H, Total Protein 6.4, Albumin 2.7 L, Globulin 3.7 H, Albumin/Globulin Ratio 0.7 L I & O for Last 24 hours: Intake & Output 03/23/25 03/24/25 03/25/25 03/26/25 23:59 23:59 23:59 23:59 Intake Total 300 / 300 320 / 320 Output Total 2650 / 2650 0 / 0 Balance -2350 / -2350 320 / 320 Weight 77.111 kg 80.002 kg Microbiology Reports for the Last 24 Hours: Microbiology 03/25/25 00:59 Blood Blood Culture - Preliminary NO GROWTH AFTER 24 HOURS 03/25/25 00:30 Blood Blood Culture - Preliminary NO GROWTH AFTER 24 HOURS Constitutional Constitutional: no acute distress *Routine HEENT Exam Head: Present normocephalic Eye: Present EOMI and PERRL ENT: Present mucous membranes moist *Routine Neck Exam Neck: Present supple; Absent lymphadenopathy *Routine Respiratory Exam Respiratory: Present CTA bilaterally *Routine Cardiovascular Exam Cardiovascular: Present RRR *Routine Abdominal Exam Abdominal: Present soft and normoactive bowel sounds; Absent tenderness *Routine Extremities Exam Extremities: Absent cyanosis, clubbing or edema *Routine Skin Exam Skin: Present warm; Absent rash *Routine Neurological Exam Neurological: Present alert and oriented X3 Results Data Completed and Pending Labs on day of discharge: Labs from last 24 hours 03/26/25 03/25/25 03/25/25 06:00 15:27 06:10 WBC 5.1 D RBC 3.86 L Hgb 11.0 L Hct 34.1 L MCV 88.3 MCH 28.5 MCHC 32.3 RDW 16.5 Plt Count 162 MPV 10.0 Neut % (Auto) 36.4 L Lymph % (Auto) 57.3 H [place] % (Auto) 5.3 Eos % (Auto) 0.8 Baso % (Auto) 0.2 Neut # (Auto) 1.9 Lymph # (Auto) 2.9 [place] # (Auto) 0.3 Eos # (Auto) 0.0 Baso # (Auto) 0.0 Sodium 134 L Potassium 3.3 L Chloride 105 Carbon Dioxide 27 Anion Gap 5.3 BUN 9 D Creatinine 0.50 L D Estimated Creat Clear 84 Estimated GFR 167 Est GFR ( Amer) 203 D Glucose 98 Calcium 7.9 L Total Bilirubin 1.2 AST 30 ALT 17 Alkaline Phosphatase 240 H Total Protein 6.4 Albumin 2.7 L Globulin 3.7 H Albumin/Globulin Ratio 0.7 L Prolactin 3.6 Monoscreen Negative Group A Strep Rapid Negative Preliminary micro results at discharge 03/25/25 00:59 Blood Culture - Preliminary Blood NO GROWTH AFTER 24 HOURS 03/25/25 00:30 Blood Culture - Preliminary Blood NO GROWTH AFTER 24 HOURS DS: Diagnosis Discharge Diagnosis (1) Seizure: Status: Acute Code(s): R56.9 - Unspecified convulsions (2) Fever: Status: Acute Code(s): R50.9 - Fever, unspecified Qualifiers: Fever type: unspecified Qualified Code(s): R50.9 - Fever, unspecified (3) Sinus tachycardia: Status: Acute Code(s): R00.0 - Tachycardia, unspecified Meds Home Medications and Allergies Home Medications ?Medication ?Instructions ?Recorded ?Confirmed ?Type diazepam 10 mg tablet 10 mg PO BIDP PRN Seizures 09/16/23 03/25/25 History phenytoin sodium extended 100 mg 200 mg PO DAILY 09/16/23 03/25/25 History capsule phenytoin sodium extended 100 mg 300 mg PO HS 09/16/23 03/25/25 History capsule pantoprazole 40 mg tablet,delayed 40 mg PO BID #30 tabs 09/19/23 03/25/25 Rx release (Protonix) aspirin 81 mg tablet,delayed 81 mg PO DAILY 30 days #30 tabs 12/12/24 03/25/25 Rx release levetiracetam 500 mg tablet 500 mg PO DAILY 03/25/25 03/25/25 History levetiracetam 500 mg tablet 1,000 mg PO HS 03/25/25 03/25/25 History (Keppra) doxycycline hyclate 100 mg tablet 100 mg PO BID 4 days #8 tabs 03/26/25 Rx New Prescriptions to Start Prescriptions: doxycycline hyclate Gideon Mcdaniels Allergies Allergy/AdvReac Type Severity Reaction Status Date / Time phenobarbital Allergy Severe Swelling Verified 12/10/24 11:41 of Lip/Tongue/Throat Discharge Plan Disposition Patient Disposition: Home, Self-Care Condition: Fair Discharge Order Discharge Orders: Discharge Order (Routine); Ordered 03/26/25 Ordered By: Gideon Mcdaniels Follow up Plan Follow up with: Rowena Bourne [Referring, Medical] - 03/31/25 2:00 pm Prescriptions/Medication Reconciliation: New doxycycline hyclate 100 mg Tablet 100 mg PO BID 4 Days Qty: 8 0RF Continued levetiracetam 500 mg tablet 500 mg PO DAILY Patient Comments: TAKE 1 TABLET BY MOUTH IN THE MORNING AND 2 IN THE EVENING levetiracetam [Keppra] 500 mg tablet 1,000 mg PO HS diazepam 10 mg tablet 10 mg PO BIDP PRN (Reason: Seizures) Patient Comments: TAKE 1 TABLET BY MOUTH TWICE DAILY NEEDED FOR ACUTE SEIZURES phenytoin sodium extended 100 mg capsule 300 mg PO HS Patient Comments: TAKE 2 CAPSULES BY MOUTH IN THE MORNING AND 3 CAPSULES IN THE EVENING phenytoin sodium extended 100 mg capsule 200 mg PO DAILY Patient Comments: TAKE 2 CAPSULES BY MOUTH IN THE MORNING AND 3 CAPSULES IN THE EVENING pantoprazole [Protonix] 40 mg tablet,delayed release (DR/EC) 40 mg PO BID Qty: 30 0RF aspirin 81 mg Tablet,Delayed Release (Dr/Ec) 81 mg PO DAILY 30 Days Qty: 30 0RF Problem Reconciliation Problems Reviewed?: Yes Patient Discharge Instructions Patient Instructions: DI for Psychogenic Nonepileptic Seizures Print Language: Mosotho Providers Primary Care Provider: Provider,Referral Admit Provider: Gideon Mcdaniels Attending Provider: Gideon Mcdaniels
--- NOTE | 2025-03-27 10:07 | SW/DCPLANNER ---
Spoke with patient on the phone. Patient stated that he is doing good. Patient stated that he is aware of his upcoming appointment. Patient stated that he was able to get his new medicine picked up from clinic pharmacy. Patient stated that he has no concerns or questions at this time. Laura Moctezuma
== END 2025-03-26 12:24 | disposition home or self-care (01) | DRG 101 ==
LOC: ER 01:54 → 2ND 02:06
PROVIDERS: Nurse Practitioner Family; Admitting Provider Student in an Organized Health Care Education/Training Program; Emergency Provider Emergency Medicine; Visit Provider Student in an Organized Health Care Education/Training Program
DX: G40.909 Epilepsy, unspecified, not intractable, without status epilepticus (principal); I69.954 Hemiplegia and hemiparesis following unspecified cerebrovascular disease affecting left non-dominant side; I50.22 Chronic systolic (congestive) heart failure; I25.2 Old myocardial infarction; E04.1 Nontoxic single thyroid nodule; R50.9 Fever, unspecified; R00.0 Tachycardia, unspecified; K21.9 Gastro-esophageal reflux disease without esophagitis; Z87.891 Personal history of nicotine dependence; Z79.82 Long term (current) use of aspirin; Z79.02 Long term (current) use of antithrombotics/antiplatelets
CPT/HCPCS: 36415; 71045; 80053; 80185; 81001; 82550; 82803; 83605; 84145; 84146; 85007; 85025; 85610; 86318; 87040; 87086; 87430; 87633; 97163; J0131; J0692; J1650; J1836; J1953; J2405; J3372; J7120